=== PATIENT | male | born 1970 | race Two or more races ===

== ENCOUNTER 2021-03-25 12:34 | Inpatient (IN) | payer SELFPAY ==
[2021-03-25] MEDS ORDERED: Ketorolac 15 MG/ML SDV IVPUSH ONE (12:43)
[2021-03-25] MEDS ORDERED: Dexamethasone 10 MG/ML SDV IVPUSH ONE (12:43)
--- NOTE | 2021-03-25 13:24 | CR ---
Indication: Shortness of breath Technique: Chest 1 view Comparison: None Findings/Impression: Cardiomegaly. Patchy bilateral opacities throughout the lungs concerning for infection or edema. No pneumothorax or effusion. Osseous structures are intact. Dictated by Meena Lomax MD @ 03/25/2021 1:23:35 PM (Electronically Signed)
[2021-03-25 13:29] LABS: BLOOD UREA NITROGEN,BUN 15 mg/dL (7.0-18.0); CARBON DIOXIDE,CO2 24.3 mmol/L (21.0-32.0); CHLORIDE,CL 95 mmol/L (98-107); GLUCOSE RANDOM 128 mg/dL (74-106); POTASSIUM,K 3.9 mmol/L (3.5-5.1); SODIUM,NA 133 mmol/L (136-148)
[2021-03-25] MEDS ORDERED: REMDESIVIR 200 MG in Sodium Chloride 0.9% 250 ML IV ONE ×2 (15:53→16:30)
--- NOTE | 2021-03-25 17:31 | PCM.HP.2 ---
H&P History of Present Illness - General Date of Service: 03/25/21 Admit Problem/Dx: Admission Diagnosis/Problem Admission Diagnosis/Problem Hypoxia - History of Present Illness Initial Comments - Free Text/Narative: The patient is a 45-year-old male, on day 1 of service, who has a significant past medical history of obesity with a BMI of 41.8, who was admitted to the ICU because of acute respiratory failure secondary to COVID-19 pneumonia. The patient is currently on BiPAP but was able to give a thorough history of the events that have transpired, on 03/15 the patient developed fevers ranging from 100-102, and a dry cough which progressively has worsened into producing clear sputum. On 03/16 the patient started to develop slight shortness of breath but thought he only had a cold. On 03/18 the patient was tested positive for COVID-19. Over the following week after being tested positive, the patient's symptoms have progressively worsened to the point where he has to rest when moving in order to catch his breath. This morning the patient came to the emergency department because his breathing became unbearable. He denies any chest pain, palpitations, abdominal pain, diarrhea, loss of taste or smell, or issues with urination. On social history, the patient does not smoke or use recreational drugs but does admit to occasional alcohol use. Family history is noncontributory. Once in the emergency department the patient was placed on BiPAP, with a FiO2 of 85, and is currently saturating at 92%. He has an IPAP of 14, EPAP of 6, PIP of 16, tidal volume of 700. He was given remdesivir 200 mg per IV route once, dexamethasone 6 mg via IV route once, and Toradol 30 mg per IV route once. The patient also had a chest x-ray done which showed cardiomegaly, as well as patchy bilateral opacities throughout the lung kumar concerning for infection. On CBC, the patient had a white blood cell count of 13.69, hemoglobin 16.1, hematocrit of 46.2, platelets of 237, and INR of 1.25. On CMP the sodium level was 133, potassium 3.9, chloride 95, glucose of 128, calcium 7.3, AST of 105, AL T of 73, and CRP of 27.10. - Related Data Allergies/Adverse Reactions: Allergies Allergy/AdvReac Type Severity Reaction Status Date / Time No Known Allergies Allergy Verified 03/25/21 12:58 Home Medications: Home Meds . [No Known Home Meds] 03/25/21 [History] Past Medical History - Past Health History Medical/Surgical History: Denies Medical/Surgical History HEENT History: Reports: None Cardiovascular History: Reports: None Respiratory History: Reports: None Gastrointestinal History: Reports: None Genitourinary History: Reports: None Neurological History: Reports: None Psychiatric History: Reports: None Endocrine/Metabolic History: Reports: None Hematologic History: Reports: None Immunologic History: Reports: None Oncologic (Cancer) History: Reports: None Dermatologic History: Reports: None - Infectious Disease History Infectious Disease History: Reports: None - Past Surgical History Head Surgeries/Procedures: Reports: None Social & Family History - Family History Family Medical History: No Pertinent Family History - Tobacco Use Tobacco Use Status *Q: Never Tobacco User Second Hand Smoke Exposure: No - Caffeine Use Caffeine Use: Reports: None - Recreational Drug Use Recreational Drug Use: No H&P Review of Systems - Review of Systems: Review Of Systems: See Below General: Reports: Fever, Chills, Fatigue. Denies: Diaphoresis HEENT: Denies: Sore Throat Pulmonary: Reports: Shortness of Breath, Wheezing, Cough Cardiovascular: Reports: Dyspnea on Exertion. Denies: Chest Pain, Palpitations Gastrointestinal: Denies: Abdominal Pain, Constipation, Diarrhea Genitourinary: Denies: Dysuria, Frequency, Burning Neurological: Denies: Headache Exam - Exam Exam: See Below - Vital Signs Vital Signs: Last Vital Signs Temp 98.2 F 03/25/21 17:19 Pulse 77 03/25/21 17:19 Resp 20 03/25/21 17:19 BP 106/71 03/25/21 17:19 Pulse Ox 92 L 03/25/21 17:19 Weight: 300 lb - Exam General: Alert, Oriented, Cooperative HEENT: Conjunctiva Clear, Other (CPAP machine over face) Neck: Trachea Midline Lungs: Other (Difficult to assess respiratory effort due to CPAP placement,) Cardiovascular: Regular Rate, Regular Rhythm GI/Abdominal Exam: Normal Bowel Sounds, Soft, Non-Tender, Other (Obese body h abitus) - Patient Data Lab Results Last 24 hrs: Laboratory Results - last 24 hr 09/29/21 09/29/21 09/29/21 Range/Units 12:34 12:34 12:34 WBC 13.69 H (4.0-11.0) K/uL RBC 5.00 (4.50-5.90) M/uL Hgb 16.1 (13.0-17.0) g/dL Hct 46.2 (38.0-50.0) % MCV 92.4 (80.0-98.0) fL MCH 32.2 H (27.0-32.0) pg MCHC 34.8 (31.0-37.0) g/dL RDW Std Deviation 44.2 (28.0-62.0) fl RDW Coeff of Kavon 13 (11.0-15.0) % Plt Count 237 (150-400) K/uL MPV 9.90 (7.40-12.00) fL Neut % (Auto) 93.1 H (48.0-80.0) % Lymph % (Auto) 2.6 L (16.0-40.0) % [place] % (Auto) 4.2 (0.0-15.0) % Eos % (Auto) 0.0 (0.0-7.0) % Baso % (Auto) 0.1 (0.0-1.5) % Neut # (Auto) 12.8 H (1.4-5.7) K/uL Lymph # (Auto) 0.4 L (0.6-2.4) K/uL [place] # (Auto) 0.6 (0.0-0.8) K/uL Eos # (Auto) 0.0 (0.0-0.7) K/uL Baso # (Auto) 0.0 (0.0-0.1) K/uL Nucleated RBC % 0.3 /100WBC Nucleated RBCs # 0 K/uL INR 1.25 Sodium 133 L (136-148) mmol/L Potassium 3.9 (3.5-5.1) mmol/L Chloride 95 L (98-107) mmol/L Carbon Dioxide 24.3 (21.0-32.0) mmol/L BUN 15 (7.0-18.0) mg/dL Creatinine 1.3 (0.8-1.3) mg/dL Est Cr Clr Drug Dosing 74.01 mL/min Estimated GFR (MDRD) 58.9 ml/min Glucose 128 H (74-106) mg/dL Calcium 7.3 L (8.5-10.1) mg/dL Magnesium 2.3 (1.8-2.4) mg/dL Total Bilirubin 1.4 H (0.2-1.0) mg/dL AST 105 H (15-37) IU/L ALT 73 H (14-63) IU/L Alkaline Phosphatase 39 L (46-116) U/L Troponin I < 0.050 (0.000-0.056) ng/mL C-Reactive Protein 27.10 H (0.00-0.90) mg/dL Total Protein 6.8 (6.4-8.2) g/dL Albumin 2.9 L (3.4-5.0) g/dL Globulin 3.9 (2.6-4.0) g/dL Albumin/Globulin Ratio 0.7 L (0.9-1.6) SARS-CoV-2 RNA (JESSICA) (NEGATIVE) 03/25/21 Range/Units 13:08 WBC (4.0-11.0) K/uL RBC (4.50-5.90) M/uL Hgb (13.0-17.0) g/dL Hct (38.0-50.0) % MCV (80.0-98.0) fL MCH (27.0-32.0) pg MCHC (31.0-37.0) g/dL RDW Std Deviation (28.0-62.0) fl RDW Coeff of Kavon (11.0-15.0) % Plt Count (150-400) K/uL MPV (7.40-12.00) fL Neut % (Auto) (48.0-80.0) % Lymph % (Auto) (16.0-40.0) % [place] % (Auto) (0.0-15.0) % Eos % (Auto) (0.0-7.0) % Baso % (Auto) (0.0-1.5) % Neut # (Auto) (1.4-5.7) K/uL Lymph # (Auto) (0.6-2.4) K/uL [place] # (Auto) (0.0-0.8) K/uL Eos # (Auto) (0.0-0.7) K/uL Baso # (Auto) (0.0-0.1) K/uL Nucleated RBC % /100WBC Nucleated RBCs # K/uL INR Sodium (136-148) mmol/L Potassium (3.5-5.1) mmol/L Chloride (98-107) mmol/L Carbon Dioxide (21.0-32.0) mmol/L BUN (7.0-18.0) mg/dL Creatinine (0.8-1.3) mg/dL Est Cr Clr Drug Dosing mL/min Estimated GFR (MDRD) ml/min Glucose (74-106) mg/dL Calcium (8.5-10.1) mg/dL Magnesium (1.8-2.4) mg/dL Total Bilirubin (0.2-1.0) mg/dL AST (15-37) IU/L ALT (14-63) IU/L Alkaline Phosphatase (46-116) U/L Troponin I (0.000-0.056) ng/mL C-Reactive Protein (0.00-0.90) mg/dL Total Protein (6.4-8.2) g/dL Albumin (3.4-5.0) g/dL Globulin (2.6-4.0) g/dL Albumin/Globulin Ratio (0.9-1.6) SARS-CoV-2 RNA (JESSICA) POSITIVE H (NEGATIVE) Result Diagrams: 03/25/21 12:34 03/25/21 12:34 Sepsis Event Note - Evaluation Sepsis Screening Result: No Definite Risk - Focused Exam Vital Signs: Vital Signs Temp Pulse Resp BP Pulse Ox 03/25/21 17:19 98.2 F 77 20 106/71 92 L 03/25/21 16:21 84 18 94 L 03/25/21 16:00 77 20 131/73 93 L 03/25/21 15:30 98.2 F 80 18 120/71 93 L 03/25/21 15:00 88 20 128/73 94 L 03/25/21 14:30 78 20 135/74 91 L 03/25/21 14:00 98.8 F 82 20 122/74 92 L 03/25/21 13:34 101 H 26 H 120/67 92 L 03/25/21 12:46 101.6 F H 101 H 40 H 124/79 50 L - Problem List (1) COVID-19 SNOMED Code(s): 325652847 ICD Code: U07.1 - COVID-19 Status: Acute Current Visit: Yes (2) Obesity SNOMED Code(s): 989778629, 935681663 ICD Code: E66.9 - OBESITY, UNSPECIFIED Status: Acute Current Visit: Yes Problem List Initiated/Reviewed/Updated: Yes Orders Last 24hrs: Active Orders 24 hr Category Date Time Status Admission Status [Patient Status] [ADT] Stat ADT 03/25/21 15:54 Active Cardiac Monitoring [RC] . DIRECTED Care 03/25/21 12:40 Active Pulse Oximetry [RC] ASDIRECTED Care 03/25/21 12:40 Active RT BiPAP/CPAP [RC] ASDIRECTED Care 03/25/21 14:16 Active BILIRUBIN DIRECT [CHEM] DAILY Lab 03/26/21 16:00 Ordered BILIRUBIN DIRECT [CHEM] DAILY Lab 03/27/21 16:00 Ordered BILIRUBIN DIRECT [CHEM] DAILY Lab 03/28/21 16:00 Ordered BILIRUBIN DIRECT [CHEM] DAILY Lab 03/29/21 16:00 Ordered CBC WITH AUTO DIFF [HEME] AM Lab 03/26/21 05:11 Ordered CBC WITH AUTO DIFF [HEME] AM Lab 03/27/21 05:11 Ordered CBC WITH AUTO DIFF [HEME] AM Lab 03/28/21 05:11 Ordered COMPREHENSIVE METABOLIC PN,CMP [CHEM] DAILY Lab 03/26/21 16:00 Ordered COMPREHENSIVE METABOLIC PN,CMP [CHEM] DAILY Lab 03/27/21 16:00 Ordered COMPREHENSIVE METABOLIC PN,CMP [CHEM] DAILY Lab 03/28/21 16:00 Ordered COMPREHENSIVE METABOLIC PN,CMP [CHEM] DAILY Lab 03/29/21 16:00 Ordered Dextromethorphan/guaiFENesin [Robitussin DM] Med 03/25/21 17:28 Ordered 10 ml PO Q4H PRN Enoxaparin [Lovenox] Med 03/25/21 21:00 Ordered 40 mg SUBCUT Q12HR Pantoprazole [ProTONIX IV] 40 mg Med 03/25/21 17:30 Ordered Sodium Chloride 0.9% [Normal Saline] 10 ml IV Q24H Remdesivir 100 mg Med 03/26/21 17:30 Ordered Sodium Chloride 0.9% [Normal Saline] 100 ml IV Q24H Medication Orders Enoxaparin Sodium (Enoxaparin 40 Mg/0.4 Ml Syringe) 40 mg SUBCUT Q12HR MARCO A Guaifenesin/Dextromethorphan (Guaifenesin/Dextromethorphan 100-10 Mg/5 Ml Soln 10 Ml Cup) 10 ml PO Q4H PRN PRN Reason: Cough Pantoprazole Sodium 40 mg/ (Sodium Chloride) 10 mls @ 300 mls/hr IV Q24H MARCO A Remdesivir 100 mg/ Sodium (Chloride) 100 mls @ 100 mls/hr IV Q24H MARCO A Stop: 03/29/21 18:29 Assessment/Plan Comment:: Admit the patient to the medical floor, vitals per unit routine, activity up ad troy., GI prophylaxis with pantoprazole 40 mg per IV route once a day, DVT prophylaxis with Lovenox 40 mg via subcutaneous route every 12 hours, regular diet 1. Cute respiratory failure secondary to COVID-19 pneumonia -The patient is currently on BiPAP saturating at 92% with a FiO2 of 85, IPAP of 14, EPAP of 6, PIP of 16, tidal volume of 700. We will continue this patient on BiPAP until improvements are noted. -The patient received 1 remdesivir treatment of 200 mg via IV route in the emergency room once, we have started the patient on remdesivir 100 mg IV route, 4 doses to be given. -The patient received 1 dose of dexamethasone 6 mg via IV route in the emergency department, we will continue the patient on dexamethasone 6 mg p.o. once a day. -For cough the patient has been put on Robitussin DM every 4 hours as needed. -For shortness of breath the patient has been placed on duo nebs every 4 hours scheduled. -Baricitinib treatment has been discussed with the patient and paperwork provided. The patient would like to read the information provided before consenting to treatment. -The CT angiogram of the chest has been ordered to rule out possible pulmonary embolism. -Daily CBC/CMP. 2. Obesity with a BMI over 40 -Hemoglobin A1c has been ordered and results will be discussed with the patient upon return -After the patient is stabilized he will be counseled on weight loss tips.
[2021-03-25] MEDS ORDERED: Albuterol/Ipratropium 4 GM Inhalation Spray INH PRN (18:00)
[2021-03-25] MEDS: Pantoprazole 40 MG in Sodium Chloride 0.9% 10 ML IV SCH (18:34)
[2021-03-25] MEDS: Albuterol/Ipratropium 3.0-0.5 MG/3 ML Neb Soln NEB SCH ×2 (19:20→21:37)
[2021-03-25 19:26] LABS: HEMOGLOBIN A1C 5.6 %
--- NOTE | 2021-03-25 20:30 | EDM.PDOC ---
ED HPI GENERAL MEDICAL PROBLEM - General Chief Complaint: Respiratory Problem Stated Complaint: COVID Time Seen by Provider: 03/25/21 12:37 - History of Present Illness INITIAL COMMENTS - FREE TEXT/NARRATIVE: CHIEF COMPLAINT(S): Shortness of breath HISTORY OF PRESENT ILLNESS: This is a 50-year-old man with a past medical history of morbid obesity who presents to the emergency department as a medical resuscitation via EMS with a chief complaint of shortness of breath. Per EMS: Upon arrival the patient was saturating 40% he was placed on 15 L nonrebreather and his current oxygenation is in the mid 70s. The patient states that approximately 10 days ago he started to experience fevers, dry cough and on March 18, 2021 he was diagnosed with COVID-19. He states that he called EMS today after speaking with his daughter and other family members because he was feeling worsening shortness of breath. He denies any chest pain, diaphoresis, nausea or vomiting. He denies any loss of taste or smell. He denies any other symptoms other than the shortness of breath. He denies any recent travel, recent surgery, prior history of DVT or PE. REVIEW OF SYSTEMS: Constitutional: Denies fever, chills. Eyes: Denies eye pain Ears, Nose, Mouth, & Throat: Denies earache Cardiovascular: Denies chest pain Respiratory: Positive for shortness of breath Gastrointestinal: Denies Nausea, vomiting, diarrhea, hematochezia. Genitourinary: Denies hematuria Skin:Denies a rash Neurological: Denies blurred vision Psychiatric: Denies depression PAST MEDICAL HISTORY: As per history of present illness and as reviewed below otherwise noncontributory. SURGICAL HISTORY: As per history of present illness and as reviewed below otherwise noncontributory. SOCIAL HISTORY: As per history of present illness and as reviewed below otherwise noncontributory. FAMILY HISTORY: As per history of present illness and as reviewed below otherwise noncontributory. EXAMINATION OF ORGAN SYSTEMS/BODY AREAS: VITALS: Blood pressure is 124/79, heart rate 101, respiratory rate 40 with an oxygen saturation of 50% on room air. Temperature 38.7 GENERAL: Is a morbidly obese gentleman who appears to be in a severe amount of respiratory distress speaking in 1-2 word sentences. HEAD: Normocephalic, atraumatic. EYES: EOMs intact. PERRL. ENT. External ears WNL. Nares patent. Oropharynx is clear with no erythema or exudate. No uvular or tongue swelling. NECK: Supple, no masses. Trachea is midline. LUNGS: The patient is tachypneic and belly breathing with clear lung sounds bilaterally. No stridor. No drooling. Speaking in 1-2 word sentences.. CARDIOVASCULAR: Tachycardic but regular with no murmurs, rubs, gallops. No edema. No JVD. ABDOMEN: Soft, non-distended, non-tender. Bowel sounds present in all 4 quadrants. No rebound tenderness, guarding, or peritoneal signs. MUSCULOSKELETAL: No deformity. Patient is moving all 4 limbs spontaneously. NEUROLOGICAL: Alert and oriented x 3. No focal neurological deficits noted. SKIN: No rashes, or pallor. No signs of injury. MEDICAL DECISION MAKING AND COURSE IN THE ED WITH INTERPRETATION/REVIEW OF DIAGNOSTIC STUDIES: This is a 50-year-old man with a past medical history of morbid obesity who presents to the emergency department as a medical resuscitation via EMS with a chief complaint of shortness of breath. Immediately upon entering the resuscitation room the patient was disrobed, placed on continuous cardiac monitoring, and IV access was established by nursing. Patient is able to speak thus displaying a patent airway, breath sounds are equal bilaterally, and patient has palpable pulses in all 4 extremities. The patient is severely dyspneic and is profoundly hypoxic on room air. Therefore respiratory therapy was at bedside and we placed the patient on high flow nasal cannula with a flow rate of 40 L and a FiO2 of 90 to 100%. The patient continued to be profoundly dyspneic and his oxygen saturation only improved to 85%. Therefore we transitioned the patient to BiPAP with an FiO2 of 100%. His pulse oximetry did improve to 90 to 94%. At this time we will obtain an EKG which was unremarkable. We did obtain CBC, CMP, Covid, INR, chest x-ray. We did place the patient on cardiac monitoring and pulse oximetry. Cardiac monitoring at this time did reveal sinus tachycardia. We will provide the patient with Toradol for pain and fever relief and will also provide the patient with 6 mg of IV Decadron. At this time I do suspect Covid pneumonia therefore no fluids will be administered and antibiotics will be held. I do not believe blood cultures at this time are indicated. Laboratory: CBC reveals a leukocytosis of 13.69 with neutrophilic predominance. INR is normal. CMP reveals hyponatremia at 133, hypochloremia at 95, hyperglycemia at 128, hypocalcemia at 7.3, hyperbilirubinemia with a total bilirubin of 1.4, transaminitis with an AST of 105, ALT of 73, hypoalbuminemia at 2.9. Troponin is negative. Covid is positive. The radiological images were viewed by myself along with reading the report from the radiologist. Chest x-ray reveals bilateral opacities throughout the lungs concerning for infection or edema. On reevaluation the patient's heart rate improved and the patient's pulse oximetry continue to remain stable. At this time I do not believe blood cultures are indicated as the patient has a viral pneumonia. All of his vital s ign abnormalities can be described by COVID-19 pneumonia. At this time I did discuss admission with the patient. He was amenable to this plan. I contacted Dr. Sosa who accepted the patient for admission DISPOSITION: Admission CONDITION: Serious PROCEDURES: Cardiac monitoring, pulse oximetry interpretation FINAL IMPRESSION(S)/DIAGNOSES: 1. Acute hypoxic respiratory failure secondary to COVID-19 pneumonia Critical Care Procedure Note Authorized and performed by: Ludin Monsalve M.D. Critical Care Time: 45 minutes Due to a high probability of clinically significant, life threatening deterioration, the patient required my highest level of preparedness to intervene emergently and I personally spent this critical care time directly and personally managing the patient. This critical care time included obtaining a history, examining the patient, pulse oximetry; ordering and review of studies; arranging urgent treatment with development of a management plan; evaluation of a patients reponse to treatment; frequent assessment; and discussions with other providers. This critical care time was performed to assess and manage the high probability of imminent, life threatening deterioration that could result in multiorgan failure. It was exclusive of separate billable procedures and treating other patients. Please see MDM section and rest of the note for further information on patient assessment and treatment. Please see MDM section and rest of the note for further information on patient assessment and treatment. - Related Data Allergies Allergy/AdvReac Type Severity Reaction Status Date / Time No Known Allergies Allergy Verified 03/25/21 12:58 Home Meds: Home Meds . [No Known Home Meds] 03/25/21 [History] Past Medical History - Past Health History Medical/Surgical History: Denies Medical/Surgical History HEENT History: Reports: None Cardiovascular History: Reports: None Respiratory History: Reports: None Gastrointestinal History: Reports: None Genitourinary History: Reports: None Musculoskeletal History: Reports: Other (See Below) Other Musculoskeletal History: R heel injury with surgical intervention Neurological History: Reports: None Psychiatric History: Reports: None Endocrine/Metabolic History: Reports: None Hematologic History: Reports: None Immunologic History: Reports: None Oncologic (Cancer) History: Reports: None Dermatologic History: Reports: None - Infectious Disease History Infectious Disease History: Reports: None - Past Surgical History Head Surgeries/Procedures: Reports: None Social & Family History - Family History Family Medical History: No Pertinent Family History HEENT: Reports: None Cardiac: Reports: None - Tobacco Use Tobacco Use Status *Q: Never Tobacco User Second Hand Smoke Exposure: No - Caffeine Use Caffeine Use: Reports: None - Recreational Drug Use Recreational Drug Use: No ED ROS GENERAL - Review of Systems Review Of Systems: See Below ED EXAM, GENERAL - Physical Exam Exam: See Below GI/Abdominal: Normal Bowel Sounds, Soft, Non-Tender, Other (Obese body habitus) Course - Vital Signs Last Recorded V/S: Last Vital Signs Temp 37.2 C 03/25/21 19:12 Pulse 79 03/25/21 19:12 Resp 34 H 03/25/21 19:12 BP 125/82 03/25/21 19:12 Pulse Ox 96 03/25/21 19:12 - Orders/Labs/Meds Orders: Active Orders 24 hr Category Date Time Status Cardiac Monitoring [RC] Q8H Care 03/25/21 12:40 Active Pulse Oximetry [RC] ASDIRECTED Care 03/25/21 12:40 Active RT BiPAP/CPAP [RC] ASDIRECTED Care 03/25/21 14:16 Active BILIRUBIN DIRECT [CHEM] DAILY Lab 03/26/21 16:00 Ordered BILIRUBIN DIRECT [CHEM] DAILY Lab 03/27/21 16:00 Ordered BILIRUBIN DIRECT [CHEM] DAILY Lab 03/28/21 16:00 Ordered BILIRUBIN DIRECT [CHEM] DAILY Lab 03/29/21 16:00 Ordered COMPREHENSIVE METABOLIC PN,CMP [CHEM] DAILY Lab 03/26/21 16:00 Ordered COMPREHENSIVE METABOLIC PN,CMP [CHEM] DAILY Lab 03/27/21 16:00 Ordered COMPREHENSIVE METABOLIC PN,CMP [CHEM] DAILY Lab 03/28/21 16:00 Ordered COMPREHENSIVE METABOLIC PN,CMP [CHEM] DAILY Lab 03/29/21 16:00 Ordered Medication Orders Albuterol/Ipratropium (Albuterol/Ipratropium 3.0-0.5 Mg/3 Ml Neb Soln) 3 ml NEB Q4HRRT [facility] Last Admin: 03/25/21 19:20 Dose: 3 ml Documented by: HUBSLAR Enoxaparin Sodium (Enoxaparin 40 Mg/0.4 Ml Syringe) 40 mg SUBCUT Q12HR [facility] Guaifenesin/Dextromethorphan (Guaifenesin/Dextromethorphan 100-10 Mg/5 Ml Soln 10 Ml Cup) 10 ml PO Q4H PRN PRN Reason: Cough Pantoprazole Sodium 40 mg/ (Sodium Chloride) 10 mls @ 300 mls/hr IV Q24H [facility] Last Admin: 03/25/21 18:34 Dose: 300 mls/hr Documented by: HUBSLAR Remdesivir 100 mg/ Sodium (Chloride) 100 mls @ 100 mls/hr IV Q24H [facility] Stop: 03/29/21 18:29 Labs: Laboratory Tests 03/25/21 03/25/21 03/25/21 Range/Units 12:34 12:34 12:34 WBC 13.69 H (4.0-11.0) K/uL RBC 5.00 (4.50-5.90) M/uL Hgb 16.1 (13.0-17.0) g/dL Hct 46.2 (38.0-50.0) % MCV 92.4 (80.0-98.0) fL MCH 32.2 H (27.0-32.0) pg MCHC 34.8 (31.0-37.0) g/dL RDW Std Deviation 44.2 (28.0-62.0) fl RDW Coeff of Kavon 13 (11.0-15.0) % Plt Count 237 (150-400) K/uL MPV 9.90 (7.40-12.00) fL Neut % (Auto) 93.1 H (48.0-80.0) % Lymph % (Auto) 2.6 L (16.0-40.0) % [place] % (Auto) 4.2 (0.0-15.0) % Eos % (Auto) 0.0 (0.0-7.0) % Baso % (Auto) 0.1 (0.0-1.5) % Neut # (Auto) 12.8 H (1.4-5.7) K/uL Lymph # (Auto) 0.4 L (0.6-2.4) K/uL [place] # (Auto) 0.6 (0.0-0.8) K/uL Eos # (Auto) 0.0 (0.0-0.7) K/uL Baso # (Auto) 0.0 (0.0-0.1) K/uL Nucleated RBC % 0.3 /100WBC Nucleated RBCs # 0 K/uL INR 1.25 Sodium 133 L (136-148) mmol/L Potassium 3.9 (3.5-5.1) mmol/L Chloride 95 L (98-107) mmol/L Carbon Dioxide 24.3 (21.0-32.0) mmol/L BUN 15 (7.0-18.0) mg/dL Creatinine 1.3 (0.8-1.3) mg/dL Est Cr Clr Drug Dosing 74.01 mL/min Estimated GFR (MDRD) 58.9 ml/min Glucose 128 H (74-106) mg/dL Hemoglobin A1c (4.5 - 6.2) % Calcium 7.3 L (8.5-10.1) mg/dL Magnesium 2.3 (1.8-2.4) mg/dL Total Bilirubin 1.4 H (0.2-1.0) mg/dL AST 105 H (15-37) IU/L ALT 73 H (14-63) IU/L Alkaline Phosphatase 39 L (46-116) U/L Troponin I < 0.050 (0.000-0.056) ng/mL C-Reactive Protein 27.10 H (0.00-0.90) mg/dL Total Protein 6.8 (6.4-8.2) g/dL Albumin 2.9 L (3.4-5.0) g/dL Globulin 3.9 (2.6-4.0) g/dL Albumin/Globulin Ratio 0.7 L (0.9-1.6) SARS-CoV-2 RNA (JESSICA) (NEGATIVE) 03/25/21 03/25/21 Range/Units 12:39 13:08 WBC (4.0-11.0) K/uL RBC (4.50-5.90) M/uL Hgb (13.0-17.0) g/dL Hct (38.0-50.0) % MCV (80.0-98.0) fL MCH (27.0-32.0) pg MCHC (31.0-37.0) g/dL RDW Std Deviation (28.0-62.0) fl RDW Coeff of Kavon (11.0-15.0) % Plt Count (150-400) K/uL MPV (7.40-12.00) fL Neut % (Auto) (48.0-80.0) % Lymph % (Auto) (16.0-40.0) % [place] % (Auto) (0.0-15.0) % Eos % (Auto) (0.0-7.0) % Baso % (Auto) (0.0-1.5) % Neut # (Auto) (1.4-5.7) K/uL Lymph # (Auto) (0.6-2.4) K/uL [place] # (Auto) (0.0-0.8) K/uL Eos # (Auto) (0.0-0.7) K/uL Baso # (Auto) (0.0-0.1) K/uL Nucleated RBC % /100WBC Nucleated RBCs # K/uL INR Sodium (136-148) mmol/L Potassium (3.5-5.1) mmol/L Chloride (98-107) mmol/L Carbon Dioxide (21.0-32.0) mmol/L BUN (7.0-18.0) mg/dL Creatinine (0.8-1.3) mg/dL Est Cr Clr Drug Dosing mL/min Estimated GFR (MDRD) ml/min Glucose (74-106) mg/dL Hemoglobin A1c 5.6 (4.5 - 6.2) % Calcium (8.5-10.1) mg/dL Magnesium (1.8-2.4) mg/dL Total Bilirubin (0.2-1.0) mg/dL AST (15-37) IU/L ALT (14-63) IU/L Alkaline Phosphatase (46-116) U/L Troponin I (0.000-0.056) ng/mL C-Reactive Protein (0.00-0.90) mg/dL Total Protein (6.4-8.2) g/dL Albumin (3.4-5.0) g/dL Globulin (2.6-4.0) g/dL Albumin/Globulin Ratio (0.9-1.6) SARS-CoV-2 RNA (JESSICA) POSITIVE H (NEGATIVE) Meds: Medications Generic Name Dose Route Start Last Admin Trade Name Freq PRN Reason Stop Dose Admin Albuterol/Ipratropium 3 ml 03/25/21 18:00 03/25/21 19:20 Albuterol/Ipratropium 3.0-0.5 Mg/3 Ml Neb Soln NEB 3 ml Q4HRRT [facility] Administration Enoxaparin Sodium 40 mg 03/25/21 21:00 Enoxaparin 40 Mg/0.4 Ml Syringe SUBCUT Q12HR [facility] Guaifenesin/Dextromethorphan 10 ml 03/25/21 17:28 Guaifenesin/Dextromethorphan 100-10 Mg/5 Ml Soln 10 Ml Cup PO Q4H PRN Cough Pantoprazole Sodium 40 mg/ 10 mls @ 300 mls/hr 03/25/21 17:30 03/25/21 18:34 Sodium Chloride IV 300 mls/hr Q24H [facility] A Administration Remdesivir 100 mg/ Sodium 100 mls @ 100 mls/hr 03/26/21 17:30 Chloride IV 03/29/21 18:29 Q24H MARCO A Discontinued Medications Generic Name Dose Route Start Last Admin Trade Name Freq PRN Reason Stop Dose Admin Albuterol/Ipratropium 1 gm 03/25/21 18:00 Albuterol/Ipratropium 4 Gm Inhalation [place] INH Q4HRRT PRN Dyspnea Dexamethasone 6 mg 03/25/21 12:43 03/25/21 13:06 Dexamethasone 10 Mg/Ml Sdv IVPUSH 03/25/21 12:44 6 mg ONETIME ONE Administration Remdesivir 200 mg/ Sodium 250 mls @ 250 mls/hr 03/25/21 16:30 03/25/21 17:19 Chloride IV 03/25/21 17:29 250 mls/hr ONETIME ONE Administration Ketorolac Tromethamine 15 mg 03/25/21 12:43 03/25/21 13:06 Ketorolac 15 Mg/Ml Sdv IVPUSH 03/25/21 12:44 15 mg ONETIME ONE Administration Departure - Departure Time of Disposition: 15:54 Disposition: Admitted As Inpatient 68 Condition: Serious Clinical Impression: COVID-19 - Discharge Information Sepsis Event Note (ED) - Evaluation Sepsis Screening Result: Possible Sepsis Risk - Focused Exam Vital Signs: Vital Signs Temp Pulse Resp BP Pulse Ox 03/25/21 15:30 36.8 C 80 18 120/71 93 L 03/25/21 15:00 88 20 128/73 94 L 03/25/21 14:30 78 20 135/74 91 L 03/25/21 14:00 37.1 C 82 20 122/74 92 L 03/25/21 13:34 101 H 26 H 120/67 92 L 03/25/21 12:46 38.7 C H 101 H 40 H 124/79 50 L - My Orders Last 24 Hours: My Active Orders 03/25/21 12:40 Cardiac Monitoring [RC] Q8H Pulse Oximetry [RC] ASDIRECTED 03/25/21 14:16 RT BiPAP/CPAP [RC] ASDIRECTED 03/26/21 16:00 BILIRUBIN DIRECT [CHEM] DAILY COMPREHENSIVE METABOLIC PN,CMP [CHEM] DAILY 03/27/21 16:00 BILIRUBIN DIRECT [CHEM] DAILY COMPREHENSIVE METABOLIC PN,CMP [CHEM] DAILY 03/28/21 16:00 BILIRUBIN DIRECT [CHEM] DAILY COMPREHENSIVE METABOLIC PN,CMP [CHEM] DAILY 03/29/21 16:00 BILIRUBIN DIRECT [CHEM] DAILY COMPREHENSIVE METABOLIC PN,CMP [CHEM] DAILY - Assessment/Plan Last 24 Hours: My Active Orders 03/25/21 12:40 Cardiac Monitoring [RC] Q8H Pulse Oximetry [RC] ASDIRECTED 03/25/21 14:16 RT BiPAP/CPAP [RC] ASDIRECTED 03/26/21 16:00 BILIRUBIN DIRECT [CHEM] DAILY COMPREHENSIVE METABOLIC PN,CMP [CHEM] DAILY 03/27/21 16:00 BILIRUBIN DIRECT [CHEM] DAILY COMPREHENSIVE METABOLIC PN,CMP [CHEM] DAILY 03/28/21 16:00 BILIRUBIN DIRECT [CHEM] DAILY COMPREHENSIVE METABOLIC PN,CMP [CHEM] DAILY 03/29/21 16:00 BILIRUBIN DIRECT [CHEM] DAILY COMPREHENSIVE METABOLIC PN,CMP [CHEM] DAILY
--- NOTE | 2021-03-25 21:08 | PCM.EKG ---
#1 Interpretation EKG Date: 03/25/21 Time: 13:22 Rhythm: NSR Rate (Beats/Min): 104 [place]: Normal P-Wave: Present QRS: Normal ST-T: Normal QT: Normal Comparison: NA - No Prior EKG EKG Interpretation Comments: Sinus tachycardia
[2021-03-25] MEDS: Enoxaparin 40 MG/0.4 ML Syringe SUBCUT SCH (21:37)
[2021-03-26] MEDS ORDERED: Iopamidol 755 MG/ML 500 ML Multipack Bottle IVPUSH STA (01:45)
[2021-03-26] MEDS: Albuterol/Ipratropium 3.0-0.5 MG/3 ML Neb Soln NEB SCH ×6 (02:06→22:19)
--- NOTE | 2021-03-26 02:29 | CT ---
INDICATION: SOB. COVID positive. Rule out pulmonary embolism. TECHNIQUE: Volumetric helical scanning of the thorax was performed during infusion of 100 cc of Isovue 370 contrast material IV, timing optimized for pulmonary arterial opacification. Coronal and sagittal reconstructions were obtained. COMPARISON: Chest x-ray performed yesterday. FINDINGS: The images are of acceptable quality and demonstrate uniform vascular enhancement within the pulmonary arteries. No pulmonary arterial filling defect is identified. The heart size is normal. Patchy ground-glass infiltrates are present throughout both lungs. The airways and pleural spaces are clear. There is no mediastinal or hilar lymphadenopathy. Images of the upper abdomen are unremarkable. IMPRESSION: 1. Negative for pulmonary embolism. 2. Patchy ground-glass infiltrates throughout both lungs, consistent with COVID 19 pneumonia. Please note that all CT scans at this facility use dose modulation, iterative reconstruction, and/or weight-based dosing when appropriate to reduce radiation dose to as low as reasonably achievable. Dictated by Vladimir Rodriguez MD @ 03/26/2021 2:28:38 AM (Electronically Signed)
[2021-03-26 07:47] LABS: BLOOD UREA NITROGEN,BUN 17 mg/dL (7.0-18.0); CARBON DIOXIDE,CO2 30.7 mmol/L (21.0-32.0); CHLORIDE,CL 100 mmol/L (98-107); GLUCOSE RANDOM 96 mg/dL (74-106); SODIUM,NA 140 mmol/L (136-148)
[2021-03-26] MEDS: Enoxaparin 40 MG/0.4 ML Syringe SUBCUT SCH ×2 (09:00→20:57)
[2021-03-26] MEDS ORDERED: Dexamethasone 4 MG Tab PO SCH (13:00)
--- NOTE | 2021-03-26 13:10 | PCM.PN ---
<Rosa Jay - Last Filed: 03/26/21 13:03> - General Info Date of Service: 03/26/21 Subjective Update: The patient is a 50-year-old male who was admitted to the medical floor due to acute respiratory failure secondary to COVID-19 pneumonia. He has no known significant past medical history but is obese with a BMI of over 40. He is currently on BiPAP with IPAP of 14 and a EPAP of 8, FiO2 of 90, tidal volume in the 800s, and O2 saturation of 88-91. The patient had time to read through ma terials provided to him with respect to baricitinib treatment and has accepted initiation of the oral medication. He revealed today that he has received the [facility] COVID-19 pneumonia vaccinations. On interview today, the patient admits he is concerned about the mortality of COVID-19 pneumonia. He does admit that he can breathe better today than yesterday. He admits that he slept well but is suffering from a little cough and dryness in the back of his throat secondary to BiPAP placement. He denies any chest pains, palpitations, abdominal pain, headache, dizziness, or issues with urination and/or defecation. The patient has no other concerns at this time. - Review of Systems General: Denies: Fever, Weakness, Fatigue, Chills HEENT: Denies: Headaches Pulmonary: Reports: Shortness of Breath, Cough Cardiovascular: Denies: Chest Pain, Palpitations Gastrointestinal: Denies: Abdominal Pain, Constipation, Diarrhea Genitourinary: Denies: Dysuria - Patient Data Vitals - Most Recent: Last Vital Signs Temp 97.7 F 03/26/21 12:00 Pulse 79 03/25/21 19:12 Resp 30 H 03/26/21 12:00 BP 119/70 03/26/21 12:00 Pulse Ox 90 L 03/26/21 12:00 Weight - Most Recent: 154.811 kg Lab Results Last 24 Hours: Laboratory Results - last 24 hr 03/25/21 03/25/21 03/25/21 Range/Units 12:34 12:39 13:08 WBC (4.0-11.0) K/uL RBC (4.50-5.90) M/uL Hgb (13.0-17.0) g/dL Hct (38.0-50.0) % MCV (80.0-98.0) fL MCH (27.0-32.0) pg MCHC (31.0-37.0) g/dL RDW Std Deviation (28.0-62.0) fl RDW Coeff of Kavon (11.0-15.0) % Plt Count (150-400) K/uL MPV (7.40-12.00) fL Neut % (Auto) (48.0-80.0) % Lymph % (Auto) (16.0-40.0) % Foard % (Auto) (0.0-15.0) % Eos % (Auto) (0.0-7.0) % Baso % (Auto) (0.0-1.5) % Neut # (Auto) (1.4-5.7) K/uL Lymph # (Auto) (0.6-2.4) K/uL Foard # (Auto) (0.0-0.8) K/uL Eos # (Auto) (0.0-0.7) K/uL Baso # (Auto) (0.0-0.1) K/uL Nucleated RBC % /100WBC Nucleated RBCs # K/uL D-Dimer, Quantitative (0.0-0.50) mg/L FEU ABG pH (7.35-7.45) ABG pCO2 (35-45) mmHG ABG pO2 (80-105) mmHG ABG HCO3 (22-26) mEq/L ABG Total CO2 (23-27) mmol/L ABG Base Excess (-2.0-3.0) Sodium 133 L (136-148) mmol/L Potassium 3.9 (3.5-5.1) mmol/L Chloride 95 L (98-107) mmol/L Carbon Dioxide 24.3 (21.0-32.0) mmol/L BUN 15 (7.0-18.0) mg/dL Creatinine 1.3 (0.8-1.3) mg/dL Est Cr Clr Drug Dosing 74.01 mL/min Estimated GFR (MDRD) 58.9 ml/min Glucose 128 H (74-106) mg/dL Hemoglobin A1c 5.6 (4.5 - 6.2) % Calcium 7.3 L (8.5-10.1) mg/dL Phosphorus (2.6-4.7) mg/dL Magnesium 2.3 (1.8-2.4) mg/dL Total Bilirubin 1.4 H (0.2-1.0) mg/dL AST 105 H (15-37) IU/L ALT 73 H (14-63) IU/L Alkaline Phosphatase 39 L (46-116) U/L Troponin I < 0.050 (0.000-0.056) ng/mL C-Reactive Protein 27.10 H (0.00-0.90) mg/dL Total Protein 6.8 (6.4-8.2) g/dL Albumin 2.9 L (3.4-5.0) g/dL Globulin 3.9 (2.6-4.0) g/dL Albumin/Globulin Ratio 0.7 L (0.9-1.6) SARS-CoV-2 RNA (JESSICA) POSITIVE H (NEGATIVE) 03/25/21 03/26/21 03/26/21 Range/Units 22:21 06:00 06:00 WBC 13.83 H (4.0-11.0) K/uL RBC 4.97 (4.50-5.90) M/uL Hgb 15.9 (13.0-17.0) g/dL Hct 46.1 (38.0-50.0) % MCV 92.8 (80.0-98.0) fL MCH 32.0 (27.0-32.0) pg MCHC 34.5 (31.0-37.0) g/dL RDW Std Deviation 44.4 (28.0-62.0) fl RDW Coeff of Kavon 13 (11.0-15.0) % Plt Count 229 (150-400) K/uL MPV 10.10 (7.40-12.00) fL Neut % (Auto) 92.9 H (48.0-80.0) % Lymph % (Auto) 3.3 L (16.0-40.0) % Foard % (Auto) 3.7 (0.0-15.0) % Eos % (Auto) 0.0 (0.0-7.0) % Baso % (Auto) 0.1 (0.0-1.5) % Neut # (Auto) 12.9 H (1.4-5.7) K/uL Lymph # (Auto) 0.5 L (0.6-2.4) K/uL Foard # (Auto) 0.5 (0.0-0.8) K/uL Eos # (Auto) 0.0 (0.0-0.7) K/uL Baso # (Auto) 0.0 (0.0-0.1) K/uL Nucleated RBC % 0.0 /100WBC Nucleated RBCs # 0 K/uL D-Dimer, Quantitative 1.22 H (0.0-0.50) mg/L FEU ABG pH (7.35-7.45) ABG pCO2 (35-45) mmHG ABG pO2 (80-105) mmHG ABG HCO3 (22-26) mEq/L ABG Total CO2 (23-27) mmol/L ABG Base Excess (-2.0-3.0) Sodium 140 (136-148) mmol/L Potassium 4.0 (3.5-5.1) mmol/L Chloride 100 (98-107) mmol/L Carbon Dioxide 30.7 (21.0-32.0) mmol/L BUN 17 (7.0-18.0) mg/dL Creatinine 0.9 (0.8-1.3) mg/dL Est Cr Clr Drug Dosing 106.91 mL/min Estimated GFR (MDRD) > 60.0 ml/min Glucose 96 (74-106) mg/dL Hemoglobin A1c (4.5 - 6.2) % Calcium 7.2 L (8.5-10.1) mg/dL Phosphorus (2.6-4.7) mg/dL Magnesium (1.8-2.4) mg/dL Total Bilirubin 1.0 (0.2-1.0) mg/dL AST 81 H (15-37) IU/L ALT 62 (14-63) IU/L Alkaline Phosphatase 41 L (46-116) U/L Troponin I (0.000-0.056) ng/mL C-Reactive Protein (0.00-0.90) mg/dL Total Protein 6.3 L (6.4-8.2) g/dL Albumin 2.5 L (3.4-5.0) g/dL Globulin 3.8 (2.6-4.0) g/dL Albumin/Globulin Ratio 0.7 L (0.9-1.6) SARS-CoV-2 RNA (JESSICA) (NEGATIVE) 03/26/21 03/26/21 Range/Units 06:00 10:05 WBC (4.0-11.0) K/uL RBC (4.50-5.90) M/uL Hgb (13.0-17.0) g/dL Hct (38.0-50.0) % MCV (80.0-98.0) fL MCH (27.0-32.0) pg MCHC (31.0-37.0) g/dL RDW Std Deviation (28.0-62.0) fl RDW Coeff of Kavon (11.0-15.0) % Plt Count (150-400) K/uL MPV (7.40-12.00) fL Neut % (Auto) (48.0-80.0) % Lymph % (Auto) (16.0-40.0) % Foard % (Auto) (0.0-15.0) % Eos % (Auto) (0.0-7.0) % Baso % (Auto) (0.0-1.5) % Neut # (Auto) (1.4-5.7) K/uL Lymph # (Auto) (0.6-2.4) K/uL Foard # (Auto) (0.0-0.8) K/uL Eos # (Auto) (0.0-0.7) K/uL Baso # (Auto) (0.0-0.1) K/uL Nucleated RBC % /100WBC Nucleated RBCs # K/uL D-Dimer, Quantitative (0.0-0.50) mg/L FEU ABG pH 7.47 H (7.35-7.45) ABG pCO2 41 (35-45) mmHG ABG pO2 65 L (80-105) mmHG ABG HCO3 29 H (22-26) mEq/L ABG Total CO2 25.1 (23-27) mmol/L ABG Base Excess 5.2 H (-2.0-3.0) Sodium (136-148) mmol/L Potassium (3.5-5.1) mmol/L Chloride (98-107) mmol/L Carbon Dioxide (21.0-32.0) mmol/L BUN (7.0-18.0) mg/dL Creatinine (0.8-1.3) mg/dL Est Cr Clr Drug Dosing mL/min Estimated GFR (MDRD) ml/min Glucose (74-106) mg/dL Hemoglobin A1c (4.5 - 6.2) % Calcium (8.5-10.1) mg/dL Phosphorus 3.4 (2.6-4.7) mg/dL Magnesium 3.0 H (1.8-2.4) mg/dL Total Bilirubin (0.2-1.0) mg/dL AST (15-37) IU/L ALT (14-63) IU/L Alkaline Phosphatase (46-116) U/L Troponin I (0.000-0.056) ng/mL C-Reactive Protein (0.00-0.90) mg/dL Total Protein (6.4-8.2) g/dL Albumin (3.4-5.0) g/dL Globulin (2.6-4.0) g/dL Albumin/Globulin Ratio (0.9-1.6) SARS-CoV-2 RNA (JESSICA) (NEGATIVE) Med Orders - Current: Current Medications Albuterol/Ipratropium (Albuterol/Ipratropium 3.0-0.5 Mg/3 Ml Neb Soln) 3 ml NEB Q4HRRT [facility] Last Admin: 03/26/21 09:00 Dose: 3 ml Documented by: Dexamethasone (Dexamethasone 4 Mg Tab) 6 mg PO DAILY [facility] Last Admin: 03/26/21 12:42 Dose: 6 mg Documented by: Enoxaparin Sodium (Enoxaparin 40 Mg/0.4 Ml Syringe) 40 mg SUBCUT Q12HR [facility] Last Admin: 03/26/21 09:00 Dose: 40 mg Documented by: Guaifenesin/Dextromethorphan (Guaifenesin/Dextromethorphan 100-10 Mg/5 Ml Soln 10 Ml Cup) 10 ml PO Q4H PRN PRN Reason: Cough Pantoprazole Sodium 40 mg/ (Sodium Chloride) 10 mls @ 300 mls/hr IV Q24H [facility] Last Admin: 03/25/21 18:34 Dose: 300 mls/hr Documented by: Remdesivir 100 mg/ Sodium (Chloride) 100 mls @ 100 mls/hr IV Q24H [facility] Stop: 03/29/21 18:29 Discontinued Medications Albuterol/Ipratropium (Albuterol/Ipratropium 4 Gm Inhalation [place]) 1 gm INH Q4HRRT PRN PRN Reason: Dyspnea Dexamethasone (Dexamethasone 10 Mg/Ml Sdv) 6 mg IVPUSH ONETIME ONE Stop: 03/25/21 12:44 Last Admin: 03/25/21 13:06 Dose: 6 mg Documented by: Remdesivir 200 mg/ Sodium (Chloride) 250 mls @ 250 mls/hr IV ONETIME ONE Stop: 03/25/21 17:29 Last Admin: 03/25/21 17:19 Dose: 250 mls/hr Documented by: Iopamidol (Iopamidol 755 Mg/Ml 500 Ml Multipack Bottle) 100 ml IVPUSH ONETIME STA Stop: 03/26/21 01:46 Last Admin: 03/26/21 01:46 Dose: 100 ml Documented by: Ketorolac Tromethamine (Ketorolac 15 Mg/Ml Sdv) 15 mg IVPUSH ONETIME ONE Stop: 03/25/21 12:44 Last Admin: 03/25/21 13:06 Dose: 15 mg Documented by: - Exam General: Alert, Oriented, Cooperative HEENT: Other (Dry mucous membranes) Neck: Trachea Midline Lungs: Other (BiPAP in place) Cardiovascular: Regular Rate, Regular Rhythm, No Murmurs GI/Abdominal Exam: Normal Bowel Sounds, Soft, Non-Tender, No Organomegaly, Other (Obese body habitus) - Patient Data Lab Results Last 24 hrs: Laboratory Results - last 24 hr 03/25/21 03/25/21 03/25/21 Range/Units 12:34 12:39 13:08 WBC (4.0-11.0) K/uL RBC (4.50-5.90) M/uL Hgb (13.0-17.0) g/dL Hct (38.0-50.0) % MCV (80.0-98.0) fL MCH (27.0-32.0) pg MCHC (31.0-37.0) g/dL RDW Std Deviation (28.0-62.0) fl RDW Coeff of Kavon (11.0-15.0) % Plt Count (150-400) K/uL MPV (7.40-12.00) fL Neut % (Auto) (48.0-80.0) % Lymph % (Auto) (16.0-40.0) % Foard % (Auto) (0.0-15.0) % Eos % (Auto) (0.0-7.0) % Baso % (Auto) (0.0-1.5) % Neut # (Auto) (1.4-5.7) K/uL Lymph # (Auto) (0.6-2.4) K/uL Foard # (Auto) (0.0-0.8) K/uL Eos # (Auto) (0.0-0.7) K/uL Baso # (Auto) (0.0-0.1) K/uL Nucleated RBC % /100WBC Nucleated RBCs # K/uL D-Dimer, Quantitative (0.0-0.50) mg/L FEU ABG pH (7.35-7.45) ABG pCO2 (35-45) mmHG ABG pO2 (80-105) mmHG ABG HCO3 (22-26) mEq/L ABG Total CO2 (23-27) mmol/L ABG Base Excess (-2.0-3.0) Sodium 133 L (136-148) mmol/L Potassium 3.9 (3.5-5.1) mmol/L Chloride 95 L (98-107) mmol/L Carbon Dioxide 24.3 (21.0-32.0) mmol/L BUN 15 (7.0-18.0) mg/dL Creatinine 1.3 (0.8-1.3) mg/dL Est Cr Clr Drug Dosing 74.01 mL/min Estimated GFR (MDRD) 58.9 ml/min Glucose 128 H (74-106) mg/dL Hemoglobin A1c 5.6 (4.5 - 6.2) % Calcium 7.3 L (8.5-10.1) mg/dL Phosphorus (2.6-4.7) mg/dL Magnesium 2.3 (1.8-2.4) mg/dL Total Bilirubin 1.4 H (0.2-1.0) mg/dL AST 105 H (15-37) IU/L ALT 73 H (14-63) IU/L Alkaline Phosphatase 39 L (46-116) U/L Troponin I < 0.050 (0.000-0.056) ng/mL C-Reactive Protein 27.10 H (0.00-0.90) mg/dL Total Protein 6.8 (6.4-8.2) g/dL Albumin 2.9 L (3.4-5.0) g/dL Globulin 3.9 (2.6-4.0) g/dL Albumin/Globulin Ratio 0.7 L (0.9-1.6) SARS-CoV-2 RNA (JESSICA) POSITIVE H (NEGATIVE) 03/25/21 03/26/21 03/26/21 Range/Units 22:21 06:00 06:00 WBC 13.83 H (4.0-11.0) K/uL RBC 4.97 (4.50-5.90) M/uL Hgb 15.9 (13.0-17.0) g/dL Hct 46.1 (38.0-50.0) % MCV 92.8 (80.0-98.0) fL MCH 32.0 (27.0-32.0) pg MCHC 34.5 (31.0-37.0) g/dL RDW Std Deviation 44.4 (28.0-62.0) fl RDW Coeff of Kavon 13 (11.0-15.0) % Plt Count 229 (150-400) K/uL MPV 10.10 (7.40-12.00) fL Neut % (Auto) 92.9 H (48.0-80.0) % Lymph % (Auto) 3.3 L (16.0-40.0) % Foard % (Auto) 3.7 (0.0-15.0) % Eos % (Auto) 0.0 (0.0-7.0) % Baso % (Auto) 0.1 (0.0-1.5) % Neut # (Auto) 12.9 H (1.4-5.7) K/uL Lymph # (Auto) 0.5 L (0.6-2.4) K/uL Foard # (Auto) 0.5 (0.0-0.8) K/uL Eos # (Auto) 0.0 (0.0-0.7) K/uL Baso # (Auto) 0.0 (0.0-0.1) K/uL Nucleated RBC % 0.0 /100WBC Nucleated RBCs # 0 K/uL D-Dimer, Quantitative 1.22 H (0.0-0.50) mg/L FEU ABG pH (7.35-7.45) ABG pCO2 (35-45) mmHG ABG pO2 (80-105) mmHG ABG HCO3 (22-26) mEq/L ABG Total CO2 (23-27) mmol/L ABG Base Excess (-2.0-3.0) Sodium 140 (136-148) mmol/L Potassium 4.0 (3.5-5.1) mmol/L Chloride 100 (98-107) mmol/L Carbon Dioxide 30.7 (21.0-32.0) mmol/L BUN 17 (7.0-18.0) mg/dL Creatinine 0.9 (0.8-1.3) mg/dL Est Cr Clr Drug Dosing 106.91 mL/min Estimated GFR (MDRD) > 60.0 ml/min Glucose 96 (74-106) mg/dL Hemoglobin A1c (4.5 - 6.2) % Calcium 7.2 L (8.5-10.1) mg/dL Phosphorus (2.6-4.7) mg/dL Magnesium (1.8-2.4) mg/dL Total Bilirubin 1.0 (0.2-1.0) mg/dL AST 81 H (15-37) IU/L ALT 62 (14-63) IU/L Alkaline Phosphatase 41 L (46-116) U/L Troponin I (0.000-0.056) ng/mL C-Reactive Protein (0.00-0.90) mg/dL Total Protein 6.3 L (6.4-8.2) g/dL Albumin 2.5 L (3.4-5.0) g/dL Globulin 3.8 (2.6-4.0) g/dL Albumin/Globulin Ratio 0.7 L (0.9-1.6) SARS-CoV-2 RNA (JESSICA) (NEGATIVE) 03/26/21 03/26/21 Range/Units 06:00 10:05 WBC (4.0-11.0) K/uL RBC (4.50-5.90) M/uL Hgb (13.0-17.0) g/dL Hct (38.0-50.0) % MCV (80.0-98.0) fL MCH (27.0-32.0) pg MCHC (31.0-37.0) g/dL RDW Std Deviation (28.0-62.0) fl RDW Coeff of Kavon (11.0-15.0) % Plt Count (150-400) K/uL MPV (7.40-12.00) fL Neut % (Auto) (48.0-80.0) % Lymph % (Auto) (16.0-40.0) % Foard % (Auto) (0.0-15.0) % Eos % (Auto) (0.0-7.0) % Baso % (Auto) (0.0-1.5) % Neut # (Auto) (1.4-5.7) K/uL Lymph # (Auto) (0.6-2.4) K/uL Foard # (Auto) (0.0-0.8) K/uL Eos # (Auto) (0.0-0.7) K/uL Baso # (Auto) (0.0-0.1) K/uL Nucleated RBC % /100WBC Nucleated RBCs # K/uL D-Dimer, Quantitative (0.0-0.50) mg/L FEU ABG pH 7.47 H (7.35-7.45) ABG pCO2 41 (35-45) mmHG ABG pO2 65 L (80-105) mmHG ABG HCO3 29 H (22-26) mEq/L ABG Total CO2 25.1 (23-27) mmol/L ABG Base Excess 5.2 H (-2.0-3.0) Sodium (136-148) mmol/L Potassium (3.5-5.1) mmol/L Chloride (98-107) mmol/L Carbon Dioxide (21.0-32.0) mmol/L BUN (7.0-18.0) mg/dL Creatinine (0.8-1.3) mg/dL Est Cr Clr Drug Dosing mL/min Estimated GFR (MDRD) ml/min Glucose (74-106) mg/dL Hemoglobin A1c (4.5 - 6.2) % Calcium (8.5-10.1) mg/dL Phosphorus 3.4 (2.6-4.7) mg/dL Magnesium 3.0 H (1.8-2.4) mg/dL Total Bilirubin (0.2-1.0) mg/dL AST (15-37) IU/L ALT (14-63) IU/L Alkaline Phosphatase (46-116) U/L Troponin I (0.000-0.056) ng/mL C-Reactive Protein (0.00-0.90) mg/dL Total Protein (6.4-8.2) g/dL Albumin (3.4-5.0) g/dL Globulin (2.6-4.0) g/dL Albumin/Globulin Ratio (0.9-1.6) SARS-CoV-2 RNA (JESSICA) (NEGATIVE) Result Diagrams: 03/26/21 06:00 03/26/21 06:00 Sepsis Event Note - Evaluation Sepsis Screening Result: Possible Sepsis Risk - Focused Exam Vital Signs: Vital Signs Temp Resp BP Pulse Ox 03/26/21 12:00 97.7 F 30 H 119/70 90 L 03/26/21 11:00 44 H 131/78 94 L 03/26/21 10:00 45 H 92 L 03/26/21 09:00 96.8 F L 40 H 114/81 93 L 03/26/21 08:00 25 H 106/76 90 L 03/26/21 07:00 35 H 97/60 89 L 03/26/21 06:00 41 H 111/72 89 L 03/26/21 05:00 35 H 97/63 92 L 03/26/21 04:00 96.9 F 33 H 102/60 94 L 03/26/21 03:00 42 H 120/79 89 L 03/26/21 02:00 32 H 128/72 91 L - Problem List & Annotations (1) COVID-19 SNOMED Code(s): 826048090 Code(s): U07.1 - COVID-19 Status: Acute Current Visit: Yes (2) Obesity SNOMED Code(s): 487842237, 801615133 Code(s): E66.9 - OBESITY, UNSPECIFIED Status: Acute Current Visit: Yes - Problem List Review Problem List Initiated/Reviewed/Updated: Yes - My Orders Last 24 Hours: My Active Orders 03/25/21 17:28 Dextromethorphan/guaiFENesin [Robitussin DM] 10 ml PO Q4H PRN 03/25/21 17:30 Pantoprazole [ProTONIX IV] 40 mg Sodium Chloride 0.9% [Normal Saline] 10 ml IV Q24H 03/25/21 17:32 RT Post Treatment Assessment [RC] Click to Edit RT Pre-Treatment Assessment [RC] Click to Edit 03/25/21 17:41 RT Aerosol Therapy [RC] ASDIRECTED 03/25/21 18:00 Albuterol/Ipratropium [DuoNeb 3.0-0.5 MG/3 ML] 3 ml NEB Q4HRRT 03/25/21 21:00 Enoxaparin [Lovenox] 40 mg SUBCUT Q12HR 03/26/21 Breakfast Regular Diet [DIET] 03/26/21 11:49 Code Status [Resuscitation Status] Routine 03/26/21 17:30 Remdesivir 100 mg Sodium Chloride 0.9% [Normal Saline] 100 ml IV Q24H 03/27/21 05:11 CBC WITH AUTO DIFF [HEME] AM CMP [COMPREHENSIVE METABOLIC PN,CMP] [CHEM] AM 03/28/21 05:11 CBC WITH AUTO DIFF [HEME] AM CMP [COMPREHENSIVE METABOLIC PN,CMP] [CHEM] AM - Plan Plan:: 1. Acute respiratory failure secondary to COVID-19 pneumonia -The patient is currently on BiPAP saturating between 88 and 91 with a FiO2 of 90, IPAP of 14, EPAP of 8, tidal volume in the 800s. We will continue this patient on BiPAP as appropriate. -We will continue the patient on remdesivir 100 mg IV route -We will continue the patient on dexamethasone 6 mg p.o. once a day. -For cough the patient has been put on Robitussin DM every 4 hours as needed. -For shortness of breath the patient has been placed on duo nebs every 4 hours scheduled. -Baricitinib treatment has been initiated, 4 mg per oral route -Magnesium level, phosphorus level, and ABGs have been ordered -Daily CBC/CMP. 2. Obesity with a BMI over 40 -Hemoglobin A1c came back within normal limits, when appropriate the patient will be counseled on lifestyle modifications including diet and exercise for his obesity <Devin Brown - Last Filed: 03/28/21 15:30> - Patient Data Vitals - Most Recent: Last Vital Signs Temp 35.9 C L 03/28/21 12:00 Pulse 79 03/25/21 19:12 Resp 17 03/28/21 13:00 BP 115/67 03/28/21 13:00 Pulse Ox 87 L 03/28/21 13:00 I&O - Last 24 Hours: Intake & Output 03/28/21 03/28/21 03/28/21 06:59 14:59 22:59 Intake Total 950 Output Total 850 Balance 100 Lab Results Last 24 Hours: Laboratory Results - last 24 hr 03/28/21 03/28/21 03/28/21 Range/Units 06:21 06:21 10:30 WBC 17.15 H (4.0-11.0) K/uL RBC 4.90 (4.50-5.90) M/uL Hgb 15.6 (13.0-17.0) g/dL Hct 46.1 (38.0-50.0) % MCV 94.1 (80.0-98.0) fL MCH 31.8 (27.0-32.0) pg MCHC 33.8 (31.0-37.0) g/dL RDW Std Deviation 45.7 (28.0-62.0) fl RDW Coeff of Kavon 13 (11.0-15.0) % Plt Count 216 (150-400) K/uL MPV 10.40 (7.40-12.00) fL Neut % (Auto) 93.7 H (48.0-80.0) % Lymph % (Auto) 2.9 L (16.0-40.0) % Foard % (Auto) 3.1 (0.0-15.0) % Eos % (Auto) 0.1 (0.0-7.0) % Baso % (Auto) 0.2 (0.0-1.5) % Neut # (Auto) 16.1 H (1.4-5.7) K/uL Lymph # (Auto) 0.5 L (0.6-2.4) K/uL Foard # (Auto) 0.5 (0.0-0.8) K/uL Eos # (Auto) 0.0 (0.0-0.7) K/uL Baso # (Auto) 0.0 (0.0-0.1) K/uL Nucleated RBC % 0.0 /100WBC Nucleated RBCs # 0 K/uL ABG pH 7.51 H (7.35-7.45) ABG pCO2 38 (35-45) mmHG ABG pO2 79 L (80-105) mmHG ABG HCO3 30 H (22-26) mEq/L ABG Total CO2 25.8 (23-27) mmol/L ABG Base Excess 7.0 H (-2.0-3.0) Sodium 139 (136-148) mmol/L Potassium 4.1 (3.5-5.1) mmol/L Chloride 99 (98-107) mmol/L Carbon Dioxide 31.1 (21.0-32.0) mmol/L BUN 14 (7.0-18.0) mg/dL Creatinine 0.8 (0.8-1.3) mg/dL Est Cr Clr Drug Dosing 120.27 mL/min Estimated GFR (MDRD) > 60.0 ml/min Glucose 106 (74-106) mg/dL Calcium 7.3 L (8.5-10.1) mg/dL Total Bilirubin 1.5 H (0.2-1.0) mg/dL AST 98 H (15-37) IU/L ALT 64 H (14-63) IU/L Alkaline Phosphatase 77 (46-116) U/L Total Protein 6.3 L (6.4-8.2) g/dL Albumin 2.5 L (3.4-5.0) g/dL Globulin 3.8 (2.6-4.0) g/dL Albumin/Globulin Ratio 0.7 L (0.9-1.6) Med Orders - Current: Current Medications Albuterol/Ipratropium (Albuterol/Ipratropium 3.0-0.5 Mg/3 Ml Neb Soln) 3 ml NEB Q4HRRT [facility] Last Admin: 03/28/21 13:27 Dose: 3 ml Documented by: Dexamethasone (Dexamethasone 4 Mg/Ml Sdv) 6 mg IVPUSH DAILY [facility] Last Admin: 03/28/21 08:34 Dose: 6 mg Documented by: Enoxaparin Sodium (Enoxaparin 40 Mg/0.4 Ml Syringe) 40 mg SUBCUT Q12HR [facility] Last Admin: 03/28/21 08:34 Dose: 40 mg Documented by: Guaifenesin/Codeine Phosphate (Codeine/Guaifenesin 10-100 Mg/5 Ml Syrup 5 Ml Cup) 5 ml PO Q4H PRN PRN Reason: Cough Last Admin: 03/28/21 14:02 Dose: 5 ml Documented by: Pantoprazole Sodium 40 mg/ (Sodium Chloride) 10 mls @ 300 mls/hr IV Q24H [facility] Last Admin: 03/27/21 16:32 Dose: 300 mls/hr Documented by: Remdesivir 100 mg/ Sodium (Chloride) 100 mls @ 100 mls/hr IV Q24H [facility] Stop: 03/29/21 18:29 Last Admin: 03/27/21 16:32 Dose: 100 mls/hr Documented by: Sodium Chloride (Sodium Chloride 0.65% Nasal [place] 45 Ml Bottle) 0 ml KANDIS Q4H PRN PRN Reason: nasal congestion Last Admin: 03/28/21 01:10 Dose: 1 spray Documented by: Discontinued Medications Albuterol/Ipratropium (Albuterol/Ipratropium 4 Gm Inhalation [place]) 1 gm INH Q4HRRT PRN PRN Reason: Dyspnea Dexamethasone (Dexamethasone 10 Mg/Ml Sdv) 6 mg IVPUSH ONETIME ONE Stop: 03/25/21 12:44 Last Admin: 03/25/21 13:06 Dose: 6 mg Documented by: Dexamethasone (Dexamethasone 4 Mg Tab) 6 mg PO DAILY [facility] Last Admin: 03/26/21 12:42 Dose: 6 mg Documented by: Guaifenesin/Dextromethorphan (Guaifenesin/Dextromethorphan 100-10 Mg/5 Ml Soln 10 Ml Cup) 10 ml PO Q4H PRN PRN Reason: Cough Last Admin: 03/27/21 10:26 Dose: 10 ml Documented by: Guaifenesin/Dextromethorphan (Guaifenesin/Dextromethorphan 100-10 Mg/5 Ml Soln 10 Ml Cup) 10 ml PO Q4H [facility] Guaifenesin/Dextromethorphan (Guaifenesin/Dextromethorphan 100-10 Mg/5 Ml Soln 10 Ml Cup) 10 ml PO Q4H [facility] Last Admin: 03/28/21 05:56 Dose: 10 ml Documented by: Remdesivir 200 mg/ Sodium (Chloride) 250 mls @ 250 mls/hr IV ONETIME ONE Stop: 03/25/21 17:29 Last Admin: 03/25/21 17:19 Dose: 250 mls/hr Documented by: Iopamidol (Iopamidol 755 Mg/Ml 500 Ml Multipack Bottle) 100 ml IVPUSH ONETIME STA Stop: 03/26/21 01:46 Last Admin: 03/26/21 01:46 Dose: 100 ml Documented by: Ketorolac Tromethamine (Ketorolac 15 Mg/Ml Sdv) 15 mg IVPUSH ONETIME ONE Stop: 03/25/21 12:44 Last Admin: 03/25/21 13:06 Dose: 15 mg Documented by: - Patient Data Lab Results Last 24 hrs: Laboratory Results - last 24 hr 03/28/21 03/28/21 03/28/21 Range/Units 06:21 06:21 10:30 WBC 17.15 H (4.0-11.0) K/uL RBC 4.90 (4.50-5.90) M/uL Hgb 15.6 (13.0-17.0) g/dL Hct 46.1 (38.0-50.0) % MCV 94.1 (80.0-98.0) fL MCH 31.8 (27.0-32.0) pg MCHC 33.8 (31.0-37.0) g/dL RDW Std Deviation 45.7 (28.0-62.0) fl RDW Coeff of Kavon 13 (11.0-15.0) % Plt Count 216 (150-400) K/uL MPV 10.40 (7.40-12.00) fL Neut % (Auto) 93.7 H (48.0-80.0) % Lymph % (Auto) 2.9 L (16.0-40.0) % [place] % (Auto) 3.1 (0.0-15.0) % Eos % (Auto) 0.1 (0.0-7.0) % Baso % (Auto) 0.2 (0.0-1.5) % Neut # (Auto) 16.1 H (1.4-5.7) K/uL Lymph # (Auto) 0.5 L (0.6-2.4) K/uL [place] # (Auto) 0.5 (0.0-0.8) K/uL Eos # (Auto) 0.0 (0.0-0.7) K/uL Baso # (Auto) 0.0 (0.0-0.1) K/uL Nucleated RBC % 0.0 /100WBC Nucleated RBCs # 0 K/uL ABG pH 7.51 H (7.35-7.45) ABG pCO2 38 (35-45) mmHG ABG pO2 79 L (80-105) mmHG ABG HCO3 30 H (22-26) mEq/L ABG Total CO2 25.8 (23-27) mmol/L ABG Base Excess 7.0 H (-2.0-3.0) Sodium 139 (136-148) mmol/L Potassium 4.1 (3.5-5.1) mmol/L Chloride 99 (98-107) mmol/L Carbon Dioxide 31.1 (21.0-32.0) mmol/L BUN 14 (7.0-18.0) mg/dL Creatinine 0.8 (0.8-1.3) mg/dL Est Cr Clr Drug Dosing 120.27 mL/min Estimated GFR (MDRD) > 60.0 ml/min Glucose 106 (74-106) mg/dL Calcium 7.3 L (8.5-10.1) mg/dL Total Bilirubin 1.5 H (0.2-1.0) mg/dL AST 98 H (15-37) IU/L ALT 64 H (14-63) IU/L Alkaline Phosphatase 77 (46-116) U/L Total Protein 6.3 L (6.4-8.2) g/dL Albumin 2.5 L (3.4-5.0) g/dL Globulin 3.8 (2.6-4.0) g/dL Albumin/Globulin Ratio 0.7 L (0.9-1.6) Result Diagrams: 03/28/21 06:21 03/28/21 06:21 Sepsis Event Note - Focused Exam Vital Signs: Vital Signs Temp Resp BP Pulse Ox 10/02/21 13:00 17 115/67 87 L 03/28/21 12:00 35.9 C L 20 112/59 L 87 L 03/28/21 11:00 36 H 142/91 H 92 L 03/28/21 10:00 40 H 127/82 88 L 03/28/21 09:00 41 H 118/73 93 L 03/28/21 08:00 36.3 C 39 H 125/72 90 L 03/28/21 07:00 31 H 125/72 90 L 03/28/21 06:00 34 H 136/81 92 L 03/28/21 05:00 32 H 129/75 94 L 03/28/21 04:00 37.0 C 30 H 153/83 H 91 L - Problem List & Annotations (1) Hypoxia SNOMED Code(s): 253840207 Code(s): R09.02 - HYPOXEMIA Status: Acute Current Visit: Yes (2) Obesity SNOMED Code(s): 711689830, 849829281 Code(s): E66.9 - OBESITY, UNSPECIFIED Status: Acute Current Visit: Yes (3) COVID-19 SNOMED Code(s): 822360871 Code(s): U07.1 - COVID-19 Status: Acute Current Visit: Yes - My Orders Last 24 Hours: My Active Orders 03/28/21 01:03 Sodium Chloride 0.65% [[place] Nasal [place]] See Dose Instructions KANDIS Q4H PRN - Plan Plan:: I have seen and evaluated the patient and agree with the residents note unless specified in my note
[2021-03-26] MEDS: REMDESIVIR 100 MG in Sodium Chloride 0.9% 100 ML IV SCH (17:14)
[2021-03-26] MEDS: Pantoprazole 40 MG in Sodium Chloride 0.9% 10 ML IV SCH (17:15)
[2021-03-26] MEDS: guaiFENesin/Dextromethorphan 100-10 MG/5 ML Soln 10 ML Cup PO PRN (17:55)
[2021-03-27] MEDS: Albuterol/Ipratropium 3.0-0.5 MG/3 ML Neb Soln NEB SCH ×6 (02:28→22:30)
[2021-03-27] MEDS: guaiFENesin/Dextromethorphan 100-10 MG/5 ML Soln 10 ML Cup PO PRN ×2 (05:18→10:26)
[2021-03-27 07:30] LABS: BLOOD UREA NITROGEN,BUN 17 mg/dL (7.0-18.0); CARBON DIOXIDE,CO2 29.1 mmol/L (21.0-32.0); CHLORIDE,CL 100 mmol/L (98-107); GLUCOSE RANDOM 122 mg/dL (74-106); POTASSIUM,K 3.9 mmol/L (3.5-5.1); SODIUM,NA 140 mmol/L (136-148)
[2021-03-27] MEDS: Dexamethasone 4 MG/ML SDV IVPUSH SCH (09:01)
[2021-03-27] MEDS: Enoxaparin 40 MG/0.4 ML Syringe SUBCUT SCH ×2 (09:02→21:07)
[2021-03-27] MEDS: guaiFENesin/Dextromethorphan 100-10 MG/5 ML Soln 10 ML Cup PO SCH ×3 (14:33→22:30)
[2021-03-27] MEDS ORDERED: guaiFENesin/Dextromethorphan 100-10 MG/5 ML Soln 10 ML Cup PO SCH (16:00)
[2021-03-27] MEDS: Pantoprazole 40 MG in Sodium Chloride 0.9% 10 ML IV SCH (16:32)
[2021-03-27] MEDS: REMDESIVIR 100 MG in Sodium Chloride 0.9% 100 ML IV SCH (16:32)
--- NOTE | 2021-03-27 16:36 | PCM.PN ---
<Rosa Jay - Last Filed: 03/27/21 16:28> - General Info Date of Service: 03/27/21 Subjective Update: The patient is a 50-year-old male who was admitted to the medical floor due to acute respiratory failure secondary to COVID-19 pneumonia. He has no known significant past medical history but is obese with a BMI of over 40. He is currently on heated high flow, 60 L, FiO2 of 85, with a respiratory rate in the 30s. The patient agreed yesterday to start baricitinib treatment and received his second 4 mg per oral route dose today. On interview today, the patient addressed his concern about length of stay in the hospital. He admitted that he did not want to stay in the hospital for 14 days but was educated on progress made with respect to oxygen demand in COVID-19 pneumonia patient's. It was explained to him that he was on CPAP previously, is on heated high flow now at 60 L, and that when patients get to 2 L on nasal cannula, they are then ready to be discharged when clinically improved. It was further explained to him that he has to be patient with respect to his treatment and that efforts are being made in order to save his life. After this discussion the patient was relieved in regards to his current complaints. Upon further interview, he admitted that he can breathe better then on admission and that he has less shortness of breath. He admits to ongoing cough and dryness in the back of his throat. He denies any chest pains, palpitations, abdominal pain, headache, dizziness, or issues with urination and/or defecation. The patient has no other concerns at this time. - Review of Systems General: Denies: Fever, Fatigue, Chills HEENT: Reports: Other (Dry mouth and throat) Pulmonary: Reports: Shortness of Breath, Cough Cardiovascular: Denies: Chest Pain, Palpitations Gastrointestinal: Denies: Abdominal Pain Genitourinary: Denies: Dysuria, Frequency Neurological: Denies: Dizziness, Headache - Patient Data Vitals - Most Recent: Last Vital Signs Temp 96.8 F L 03/27/21 13:00 Pulse 79 03/25/21 19:12 Resp 20 03/27/21 15:00 BP 111/72 03/27/21 15:00 Pulse Ox 90 L 03/27/21 15:00 Weight - Most Recent: 141.026 kg I&O - Last 24 Hours: Intake & Output 03/27/21 03/27/21 03/27/21 06:59 14:59 22:59 Intake Total 700 Output Total 850 Balance -150 Lab Results Last 24 Hours: Laboratory Results - last 24 hr 03/27/21 03/27/21 Range/Units 06:05 06:05 WBC 16.54 H (4.0-11.0) K/uL RBC 4.82 (4.50-5.90) M/uL Hgb 15.3 (13.0-17.0) g/dL Hct 45.2 (38.0-50.0) % MCV 93.8 (80.0-98.0) fL MCH 31.7 (27.0-32.0) pg MCHC 33.8 (31.0-37.0) g/dL RDW Std Deviation 45.5 (28.0-62.0) fl RDW Coeff of Kavon 13 (11.0-15.0) % Plt Count 234 (150-400) K/uL MPV 10.30 (7.40-12.00) fL Neut % (Auto) 93.9 H (48.0-80.0) % Lymph % (Auto) 3.0 L (16.0-40.0) % [place] % (Auto) 3.0 (0.0-15.0) % Eos % (Auto) 0.0 (0.0-7.0) % Baso % (Auto) 0.1 (0.0-1.5) % Neut # (Auto) 15.6 H (1.4-5.7) K/uL Lymph # (Auto) 0.5 L (0.6-2.4) K/uL [place] # (Auto) 0.5 (0.0-0.8) K/uL Eos # (Auto) 0.0 (0.0-0.7) K/uL Baso # (Auto) 0.0 (0.0-0.1) K/uL Nucleated RBC % 0.0 /100WBC Nucleated RBCs # 0 K/uL Sodium 140 (136-148) mmol/L Potassium 3.9 (3.5-5.1) mmol/L Chloride 100 (98-107) mmol/L Carbon Dioxide 29.1 (21.0-32.0) mmol/L BUN 17 (7.0-18.0) mg/dL Creatinine 0.9 (0.8-1.3) mg/dL Est Cr Clr Drug Dosing 106.91 mL/min Estimated GFR (MDRD) > 60.0 ml/min Glucose 122 H (74-106) mg/dL Calcium 7.3 L (8.5-10.1) mg/dL Total Bilirubin 1.0 (0.2-1.0) mg/dL AST 86 H (15-37) IU/L ALT 60 (14-63) IU/L Alkaline Phosphatase 55 (46-116) U/L Total Protein 6.2 L (6.4-8.2) g/dL Albumin 2.6 L (3.4-5.0) g/dL Globulin 3.6 (2.6-4.0) g/dL Albumin/Globulin Ratio 0.7 L (0.9-1.6) Med Orders - Current: Current Medications Albuterol/Ipratropium (Albuterol/Ipratropium 3.0-0.5 Mg/3 Ml Neb Soln) 3 ml NEB Q4HRRT [facility] Last Admin: 03/27/21 13:33 Dose: 3 ml Documented by: Dexamethasone (Dexamethasone 4 Mg/Ml Sdv) 6 mg IVPUSH DAILY [facility] Last Admin: 03/27/21 09:01 Dose: 6 mg Documented by: Enoxaparin Sodium (Enoxaparin 40 Mg/0.4 Ml Syringe) 40 mg SUBCUT Q12HR [facility] Last Admin: 03/27/21 09:02 Dose: 40 mg Documented by: Guaifenesin/Dextromethorphan (Guaifenesin/Dextromethorphan 100-10 Mg/5 Ml Soln 10 Ml Cup) 10 ml PO Q4H [facility] Last Admin: 03/27/21 14:33 Dose: 10 ml Documented by: Pantoprazole Sodium 40 mg/ (Sodium Chloride) 10 mls @ 300 mls/hr IV Q24H [facility] Last Admin: 03/26/21 17:15 Dose: 300 mls/hr Documented by: Remdesivir 100 mg/ Sodium (Chloride) 100 mls @ 100 mls/hr IV Q24H [facility] Stop: 03/29/21 18:29 Last Admin: 03/26/21 17:14 Dose: 100 mls/hr Documented by: Discontinued Medications Albuterol/Ipratropium (Albuterol/Ipratropium 4 Gm Inhalation [place]) 1 gm INH Q4HRRT PRN PRN Reason: Dyspnea Dexamethasone (Dexamethasone 10 Mg/Ml Sdv) 6 mg IVPUSH ONETIME ONE Stop: 03/25/21 12:44 Last Admin: 03/25/21 13:06 Dose: 6 mg Documented by: Dexamethasone (Dexamethasone 4 Mg Tab) 6 mg PO DAILY [facility] Last Admin: 03/26/21 12:42 Dose: 6 mg Documented by: Guaifenesin/Dextromethorphan (Guaifenesin/Dextromethorphan 100-10 Mg/5 Ml Soln 10 Ml Cup) 10 ml PO Q4H PRN PRN Reason: Cough Last Admin: 03/27/21 10:26 Dose: 10 ml Documented by: Guaifenesin/Dextromethorphan (Guaifenesin/Dextromethorphan 100-10 Mg/5 Ml Soln 10 Ml Cup) 10 ml PO Q4H [facility] Remdesivir 200 mg/ Sodium (Chloride) 250 mls @ 250 mls/hr IV ONETIME ONE Stop: 03/25/21 17:29 Last Admin: 03/25/21 17:19 Dose: 250 mls/hr Documented by: Iopamidol (Iopamidol 755 Mg/Ml 500 Ml Multipack Bottle) 100 ml IVPUSH ONETIME STA Stop: 03/26/21 01:46 Last Admin: 03/26/21 01:46 Dose: 100 ml Documented by: Ketorolac Tromethamine (Ketorolac 15 Mg/Ml Sdv) 15 mg IVPUSH ONETIME ONE Stop: 03/25/21 12:44 Last Admin: 03/25/21 13:06 Dose: 15 mg Documented by: - Exam General: Alert, Oriented, Cooperative HEENT: Other (Mucous membranes dry) Neck: Trachea Midline Lungs: Other (Patient is currently on heated high flow, no abnormal lung sounds heard) Cardiovascular: Regular Rate, Regular Rhythm, No Murmurs GI/Abdominal Exam: Normal Bowel Sounds, Soft, Non-Tender, Other (Obese body habitus) - Patient Data Lab Results Last 24 hrs: Laboratory Results - last 24 hr 03/27/21 03/27/21 Range/Units 06:05 06:05 WBC 16.54 H (4.0-11.0) K/uL RBC 4.82 (4.50-5.90) M/uL Hgb 15.3 (13.0-17.0) g/dL Hct 45.2 (38.0-50.0) % MCV 93.8 (80.0-98.0) fL MCH 31.7 (27.0-32.0) pg MCHC 33.8 (31.0-37.0) g/dL RDW Std Deviation 45.5 (28.0-62.0) fl RDW Coeff of Kavon 13 (11.0-15.0) % Plt Count 234 (150-400) K/uL MPV 10.30 (7.40-12.00) fL Neut % (Auto) 93.9 H (48.0-80.0) % Lymph % (Auto) 3.0 L (16.0-40.0) % [place] % (Auto) 3.0 (0.0-15.0) % Eos % (Auto) 0.0 (0.0-7.0) % Baso % (Auto) 0.1 (0.0-1.5) % Neut # (Auto) 15.6 H (1.4-5.7) K/uL Lymph # (Auto) 0.5 L (0.6-2.4) K/uL [place] # (Auto) 0.5 (0.0-0.8) K/uL Eos # (Auto) 0.0 (0.0-0.7) K/uL Baso # (Auto) 0.0 (0.0-0.1) K/uL Nucleated RBC % 0.0 /100WBC Nucleated RBCs # 0 K/uL Sodium 140 (136-148) mmol/L Potassium 3.9 (3.5-5.1) mmol/L Chloride 100 (98-107) mmol/L Carbon Dioxide 29.1 (21.0-32.0) mmol/L BUN 17 (7.0-18.0) mg/dL Creatinine 0.9 (0.8-1.3) mg/dL Est Cr Clr Drug Dosing 106.91 mL/min Estimated GFR (MDRD) > 60.0 ml/min Glucose 122 H (74-106) mg/dL Calcium 7.3 L (8.5-10.1) mg/dL Total Bilirubin 1.0 (0.2-1.0) mg/dL AST 86 H (15-37) IU/L ALT 60 (14-63) IU/L Alkaline Phosphatase 55 (46-116) U/L Total Protein 6.2 L (6.4-8.2) g/dL Albumin 2.6 L (3.4-5.0) g/dL Globulin 3.6 (2.6-4.0) g/dL Albumin/Globulin Ratio 0.7 L (0.9-1.6) Result Diagrams: 03/27/21 06:05 03/27/21 06:05 Sepsis Event Note - Evaluation Sepsis Screening Result: Possible Sepsis Risk - Focused Exam Vital Signs: Vital Signs Temp Resp BP Pulse Ox 03/27/21 15:00 20 111/72 90 L 03/27/21 14:00 22 H 110/71 89 L 03/27/21 13:00 96.8 F L 18 113/73 89 L 03/27/21 12:00 18 108/77 88 L 03/27/21 11:00 22 H 88 L 03/27/21 10:00 20 132/84 89 L 03/27/21 09:00 42 H 131/71 90 L 03/27/21 08:00 35 H 114/77 92 L 03/27/21 07:00 32 H 141/93 H 90 L 03/27/21 06:00 30 H 124/74 93 L 03/27/21 05:00 33 H 116/70 90 L - Problem List & Annotations (1) COVID-19 SNOMED Code(s): 275547954 Code(s): U07.1 - COVID-19 Status: Acute Current Visit: Yes (2) Obesity SNOMED Code(s): 674966454, 494149125 Code(s): E66.9 - OBESITY, UNSPECIFIED Status: Acute Current Visit: Yes - Problem List Review Problem List Initiated/Reviewed/Updated: Yes - My Orders Last 24 Hours: My Active Orders 03/26/21 17:30 Remdesivir 100 mg Sodium Chloride 0.9% [Normal Saline] 100 ml IV Q24H 03/28/21 05:11 CBC WITH AUTO DIFF [HEME] AM CMP [COMPREHENSIVE METABOLIC PN,CMP] [CHEM] AM - Plan Plan:: 1. Acute respiratory failure secondary to COVID-19 pneumonia -The patient is currently on heated high flow, 60 L, FiO2 of 85, respiratory rate in the 30s. We will continue to wean this patient as appropriate. -We will continue the patient on remdesivir 100 mg IV route -We will continue the patient on dexamethasone 6 mg p.o. once a day. -For cough the patient has been put on Robitussin DM every 4 hours as needed. -For shortness of breath the patient has been placed on duo nebs every 4 hours scheduled. -Continue baricitinib treatment, 4 mg per oral route -Daily CBC/CMP. 2. Obesity with a BMI over 40 -the patient will be counseled on lifestyle modifications including diet and exercise for his obesity <Devin Brown - Last Filed: 03/28/21 15:39> - Patient Data Vitals - Most Recent: Last Vital Signs Temp 35.9 C L 03/28/21 12:00 Pulse 79 03/25/21 19:12 Resp 17 03/28/21 13:00 BP 115/67 03/28/21 13:00 Pulse Ox 87 L 03/28/21 13:00 I&O - Last 24 Hours: Intake & Output 03/28/21 03/28/21 03/28/21 06:59 14:59 22:59 Intake Total 950 Output Total 850 Balance 100 Lab Results Last 24 Hours: Laboratory Results - last 24 hr 03/28/21 03/28/21 03/28/21 Range/Units 06:21 06:21 10:30 WBC 17.15 H (4.0-11.0) K/uL RBC 4.90 (4.50-5.90) M/uL Hgb 15.6 (13.0-17.0) g/dL Hct 46.1 (38.0-50.0) % MCV 94.1 (80.0-98.0) fL MCH 31.8 (27.0-32.0) pg MCHC 33.8 (31.0-37.0) g/dL RDW Std Deviation 45.7 (28.0-62.0) fl RDW Coeff of Kavon 13 (11.0-15.0) % Plt Count 216 (150-400) K/uL MPV 10.40 (7.40-12.00) fL Neut % (Auto) 93.7 H (48.0-80.0) % Lymph % (Auto) 2.9 L (16.0-40.0) % [place] % (Auto) 3.1 (0.0-15.0) % Eos % (Auto) 0.1 (0.0-7.0) % Baso % (Auto) 0.2 (0.0-1.5) % Neut # (Auto) 16.1 H (1.4-5.7) K/uL Lymph # (Auto) 0.5 L (0.6-2.4) K/uL [place] # (Auto) 0.5 (0.0-0.8) K/uL Eos # (Auto) 0.0 (0.0-0.7) K/uL Baso # (Auto) 0.0 (0.0-0.1) K/uL Nucleated RBC % 0.0 /100WBC Nucleated RBCs # 0 K/uL ABG pH 7.51 H (7.35-7.45) ABG pCO2 38 (35-45) mmHG ABG pO2 79 L (80-105) mmHG ABG HCO3 30 H (22-26) mEq/L ABG Total CO2 25.8 (23-27) mmol/L ABG Base Excess 7.0 H (-2.0-3.0) Sodium 139 (136-148) mmol/L Potassium 4.1 (3.5-5.1) mmol/L Chloride 99 (98-107) mmol/L Carbon Dioxide 31.1 (21.0-32.0) mmol/L BUN 14 (7.0-18.0) mg/dL Creatinine 0.8 (0.8-1.3) mg/dL Est Cr Clr Drug Dosing 120.27 mL/min Estimated GFR (MDRD) > 60.0 ml/min Glucose 106 (74-106) mg/dL Calcium 7.3 L (8.5-10.1) mg/dL Total Bilirubin 1.5 H (0.2-1.0) mg/dL AST 98 H (15-37) IU/L ALT 64 H (14-63) IU/L Alkaline Phosphatase 77 (46-116) U/L Total Protein 6.3 L (6.4-8.2) g/dL Albumin 2.5 L (3.4-5.0) g/dL Globulin 3.8 (2.6-4.0) g/dL Albumin/Globulin Ratio 0.7 L (0.9-1.6) Med Orders - Current: Current Medications Albuterol/Ipratropium (Albuterol/Ipratropium 3.0-0.5 Mg/3 Ml Neb Soln) 3 ml NEB Q4HRRT [facility] Last Admin: 03/28/21 13:27 Dose: 3 ml Documented by: Dexamethasone (Dexamethasone 4 Mg/Ml Sdv) 6 mg IVPUSH DAILY [facility] Last Admin: 03/28/21 08:34 Dose: 6 mg Documented by: Enoxaparin Sodium (Enoxaparin 40 Mg/0.4 Ml Syringe) 40 mg SUBCUT Q12HR [facility] Last Admin: 03/28/21 08:34 Dose: 40 mg Documented by: Guaifenesin/Codeine Phosphate (Codeine/Guaifenesin 10-100 Mg/5 Ml Syrup 5 Ml Cup) 5 ml PO Q4H PRN PRN Reason: Cough Last Admin: 03/28/21 14:02 Dose: 5 ml Documented by: Pantoprazole Sodium 40 mg/ (Sodium Chloride) 10 mls @ 300 mls/hr IV Q24H [facility] Last Admin: 03/27/21 16:32 Dose: 300 mls/hr Documented by: Remdesivir 100 mg/ Sodium (Chloride) 100 mls @ 100 mls/hr IV Q24H [facility] Stop: 03/29/21 18:29 Last Admin: 03/27/21 16:32 Dose: 100 mls/hr Documented by: Sodium Chloride (Sodium Chloride 0.65% Nasal [place] 45 Ml Bottle) 0 ml KANDIS Q4H PRN PRN Reason: nasal congestion Last Admin: 03/28/21 01:10 Dose: 1 spray Documented by: Discontinued Medications Albuterol/Ipratropium (Albuterol/Ipratropium 4 Gm Inhalation [place]) 1 gm INH Q4HRRT PRN PRN Reason: Dyspnea Dexamethasone (Dexamethasone 10 Mg/Ml Sdv) 6 mg IVPUSH ONETIME ONE Stop: 03/25/21 12:44 Last Admin: 03/25/21 13:06 Dose: 6 mg Documented by: Dexamethasone (Dexamethasone 4 Mg Tab) 6 mg PO DAILY [facility] Last Admin: 03/26/21 12:42 Dose: 6 mg Documented by: Guaifenesin/Dextromethorphan (Guaifenesin/Dextromethorphan 100-10 Mg/5 Ml Soln 10 Ml Cup) 10 ml PO Q4H PRN PRN Reason: Cough Last Admin: 03/27/21 10:26 Dose: 10 ml Documented by: Guaifenesin/Dextromethorphan (Guaifenesin/Dextromethorphan 100-10 Mg/5 Ml Soln 10 Ml Cup) 10 ml PO Q4H [facility] Guaifenesin/Dextromethorphan (Guaifenesin/Dextromethorphan 100-10 Mg/5 Ml Soln 10 Ml Cup) 10 ml PO Q4H [facility] Last Admin: 03/28/21 05:56 Dose: 10 ml Documented by: Remdesivir 200 mg/ Sodium (Chloride) 250 mls @ 250 mls/hr IV ONETIME ONE Stop: 03/25/21 17:29 Last Admin: 03/25/21 17:19 Dose: 250 mls/hr Documented by: Iopamidol (Iopamidol 755 Mg/Ml 500 Ml Multipack Bottle) 100 ml IVPUSH ONETIME STA Stop: 03/26/21 01:46 Last Admin: 03/26/21 01:46 Dose: 100 ml Documented by: Ketorolac Tromethamine (Ketorolac 15 Mg/Ml Sdv) 15 mg IVPUSH ONETIME ONE Stop: 03/25/21 12:44 Last Admin: 03/25/21 13:06 Dose: 15 mg Documented by: - Patient Data Lab Results Last 24 hrs: Laboratory Results - last 24 hr 03/28/21 03/28/21 03/28/21 Range/Units 06:21 06:21 10:30 WBC 17.15 H (4.0-11.0) K/uL RBC 4.90 (4.50-5.90) M/uL Hgb 15.6 (13.0-17.0) g/dL Hct 46.1 (38.0-50.0) % MCV 94.1 (80.0-98.0) fL MCH 31.8 (27.0-32.0) pg MCHC 33.8 (31.0-37.0) g/dL RDW Std Deviation 45.7 (28.0-62.0) fl RDW Coeff of Kavon 13 (11.0-15.0) % Plt Count 216 (150-400) K/uL MPV 10.40 (7.40-12.00) fL Neut % (Auto) 93.7 H (48.0-80.0) % Lymph % (Auto) 2.9 L (16.0-40.0) % [place] % (Auto) 3.1 (0.0-15.0) % Eos % (Auto) 0.1 (0.0-7.0) % Baso % (Auto) 0.2 (0.0-1.5) % Neut # (Auto) 16.1 H (1.4-5.7) K/uL Lymph # (Auto) 0.5 L (0.6-2.4) K/uL [place] # (Auto) 0.5 (0.0-0.8) K/uL Eos # (Auto) 0.0 (0.0-0.7) K/uL Baso # (Auto) 0.0 (0.0-0.1) K/uL Nucleated RBC % 0.0 /100WBC Nucleated RBCs # 0 K/uL ABG pH 7.51 H (7.35-7.45) ABG pCO2 38 (35-45) mmHG ABG pO2 79 L (80-105) mmHG ABG HCO3 30 H (22-26) mEq/L ABG Total CO2 25.8 (23-27) mmol/L ABG Base Excess 7.0 H (-2.0-3.0) Sodium 139 (136-148) mmol/L Potassium 4.1 (3.5-5.1) mmol/L Chloride 99 (98-107) mmol/L Carbon Dioxide 31.1 (21.0-32.0) mmol/L BUN 14 (7.0-18.0) mg/dL Creatinine 0.8 (0.8-1.3) mg/dL Est Cr Clr Drug Dosing 120.27 mL/min Estimated GFR (MDRD) > 60.0 ml/min Glucose 106 (74-106) mg/dL Calcium 7.3 L (8.5-10.1) mg/dL Total Bilirubin 1.5 H (0.2-1.0) mg/dL AST 98 H (15-37) IU/L ALT 64 H (14-63) IU/L Alkaline Phosphatase 77 (46-116) U/L Total Protein 6.3 L (6.4-8.2) g/dL Albumin 2.5 L (3.4-5.0) g/dL Globulin 3.8 (2.6-4.0) g/dL Albumin/Globulin Ratio 0.7 L (0.9-1.6) Result Diagrams: 03/28/21 06:21 03/28/21 06:21 Sepsis Event Note - Focused Exam Vital Signs: Vital Signs Temp Resp BP Pulse Ox 03/28/21 13:00 17 115/67 87 L 03/28/21 12:00 35.9 C L 20 112/59 L 87 L 03/28/21 11:00 36 H 142/91 H 92 L 03/28/21 10:00 40 H 127/82 88 L 03/28/21 09:00 41 H 118/73 93 L 03/28/21 08:00 36.3 C 39 H 125/72 90 L 03/28/21 07:00 31 H 125/72 90 L 03/28/21 06:00 34 H 136/81 92 L 03/28/21 05:00 32 H 129/75 94 L 03/28/21 04:00 37.0 C 30 H 153/83 H 91 L - Problem List & Annotations (1) Hypoxia SNOMED Code(s): 515988234 Code(s): R09.02 - HYPOXEMIA Status: Acute Current Visit: Yes (2) Obesity SNOMED Code(s): 897250437, 826440400 Code(s): E66.9 - OBESITY, UNSPECIFIED Status: Acute Current Visit: Yes (3) COVID-19 SNOMED Code(s): 182502959 Code(s): U07.1 - COVID-19 Status: Acute Current Visit: Yes - My Orders Last 24 Hours: My Active Orders 03/28/21 01:03 Sodium Chloride 0.65% [[place] Nasal [place]] See Dose Instructions [facility]IS Q4H PRN - Plan Plan:: I have seen and evaluated the patient and agree with the residents note unless specified in my note
[2021-03-28] MEDS ORDERED: Sodium Chloride 0.65% Nasal Spray 45 ML Bottle NAS PRN (01:03)
[2021-03-28] MEDS: Albuterol/Ipratropium 3.0-0.5 MG/3 ML Neb Soln NEB SCH ×6 (01:58→21:34)
[2021-03-28] MEDS: guaiFENesin/Dextromethorphan 100-10 MG/5 ML Soln 10 ML Cup PO SCH ×2 (01:58→05:56)
[2021-03-28 07:41] LABS: BLOOD UREA NITROGEN,BUN 14 mg/dL (7.0-18.0); CARBON DIOXIDE,CO2 31.1 mmol/L (21.0-32.0); CHLORIDE,CL 99 mmol/L (98-107); GLUCOSE RANDOM 106 mg/dL (74-106); POTASSIUM,K 4.1 mmol/L (3.5-5.1); SODIUM,NA 139 mmol/L (136-148)
[2021-03-28] MEDS: Dexamethasone 4 MG/ML SDV IVPUSH SCH (08:34)
[2021-03-28] MEDS: Enoxaparin 40 MG/0.4 ML Syringe SUBCUT SCH ×2 (08:34→21:34)
[2021-03-28] MEDS: Codeine/guaiFENesin 10-100 MG/5 ML Syrup 5 ML Cup PO PRN ×4 (09:57→22:40)
--- NOTE | 2021-03-28 12:14 | PCM.PN ---
- General Info Date of Service: 03/28/21 Subjective Update: Patient states he feels fine this morning. Denies chest pain, shortness of breath. Patient states his biggest concern is coughing spells which make it difficult for him to breathe. - Review of Systems General: Denies: Fever, Chills Pulmonary: Reports: Shortness of Breath, Cough Cardiovascular: Reports: Dyspnea on Exertion. Denies: Chest Pain, Edema Gastrointestinal: Denies: Abdominal Pain, Diarrhea, Nausea, Vomiting Neurological: Denies: Confusion, Dizziness, Headache Psychiatric: Denies: Confusion - Patient Data Vitals - Most Recent: Last Vital Signs Temp 97.3 F 03/28/21 08:00 Pulse 79 03/25/21 19:12 Resp 36 H 03/28/21 11:00 BP 142/91 H 03/28/21 11:00 Pulse Ox 92 L 03/28/21 11:00 Weight - Most Recent: 313 lb 13.777 oz I&O - Last 24 Hours: Intake & Output 03/27/21 03/28/21 03/28/21 22:59 06:59 14:59 Intake Total 1110 950 Output Total 900 850 Balance 210 100 Lab Results Last 24 Hours: Laboratory Results - last 24 hr 03/28/21 03/28/21 03/28/21 Range/Units 06:21 06:21 10:30 WBC 17.15 H (4.0-11.0) K/uL RBC 4.90 (4.50-5.90) M/uL Hgb 15.6 (13.0-17.0) g/dL Hct 46.1 (38.0-50.0) % MCV 94.1 (80.0-98.0) fL MCH 31.8 (27.0-32.0) pg MCHC 33.8 (31.0-37.0) g/dL RDW Std Deviation 45.7 (28.0-62.0) fl RDW Coeff of Kavon 13 (11.0-15.0) % Plt Count 216 (150-400) K/uL MPV 10.40 (7.40-12.00) fL Neut % (Auto) 93.7 H (48.0-80.0) % Lymph % (Auto) 2.9 L (16.0-40.0) % Preston % (Auto) 3.1 (0.0-15.0) % Eos % (Auto) 0.1 (0.0-7.0) % Baso % (Auto) 0.2 (0.0-1.5) % Neut # (Auto) 16.1 H (1.4-5.7) K/uL Lymph # (Auto) 0.5 L (0.6-2.4) K/uL Preston # (Auto) 0.5 (0.0-0.8) K/uL Eos # (Auto) 0.0 (0.0-0.7) K/uL Baso # (Auto) 0.0 (0.0-0.1) K/uL Nucleated RBC % 0.0 /100WBC Nucleated RBCs # 0 K/uL ABG pH 7.51 H (7.35-7.45) ABG pCO2 38 (35-45) mmHG ABG pO2 79 L (80-105) mmHG ABG HCO3 30 H (22-26) mEq/L ABG Total CO2 25.8 (23-27) mmol/L ABG Base Excess 7.0 H (-2.0-3.0) Sodium 139 (136-148) mmol/L Potassium 4.1 (3.5-5.1) mmol/L Chloride 99 (98-107) mmol/L Carbon Dioxide 31.1 (21.0-32.0) mmol/L BUN 14 (7.0-18.0) mg/dL Creatinine 0.8 (0.8-1.3) mg/dL Est Cr Clr Drug Dosing 120.27 mL/min Estimated GFR (MDRD) > 60.0 ml/min Glucose 106 (74-106) mg/dL Calcium 7.3 L (8.5-10.1) mg/dL Total Bilirubin 1.5 H (0.2-1.0) mg/dL AST 98 H (15-37) IU/L ALT 64 H (14-63) IU/L Alkaline Phosphatase 77 (46-116) U/L Total Protein 6.3 L (6.4-8.2) g/dL Albumin 2.5 L (3.4-5.0) g/dL Globulin 3.8 (2.6-4.0) g/dL Albumin/Globulin Ratio 0.7 L (0.9-1.6) Med Orders - Current: Current Medications Albuterol/Ipratropium (Albuterol/Ipratropium 3.0-0.5 Mg/3 Ml Neb Soln) 3 ml NEB Q4HRRT [facility] Last Admin: 03/28/21 09:15 Dose: 3 ml Documented by: Dexamethasone (Dexamethasone 4 Mg/Ml Sdv) 6 mg IVPUSH DAILY [facility] Last Admin: 03/28/21 08:34 Dose: 6 mg Documented by: Enoxaparin Sodium (Enoxaparin 40 Mg/0.4 Ml Syringe) 40 mg SUBCUT Q12HR [facility] Last Admin: 03/28/21 08:34 Dose: 40 mg Documented by: Guaifenesin/Codeine Phosphate (Codeine/Guaifenesin 10-100 Mg/5 Ml Syrup 5 Ml Cup) 5 ml PO Q4H PRN PRN Reason: Cough Last Admin: 03/28/21 09:57 Dose: 5 ml Documented by: Pantoprazole Sodium 40 mg/ (Sodium Chloride) 10 mls @ 300 mls/hr IV Q24H [facility] Last Admin: 03/27/21 16:32 Dose: 300 mls/hr Documented by: Remdesivir 100 mg/ Sodium (Chloride) 100 mls @ 100 mls/hr IV Q24H [facility] Stop: 03/29/21 18:29 Last Admin: 03/27/21 16:32 Dose: 100 mls/hr Documented by: Sodium Chloride (Sodium Chloride 0.65% Nasal [place] 45 Ml Bottle) 0 ml KADNIS Q4H PRN PRN Reason: nasal congestion Last Admin: 03/28/21 01:10 Dose: 1 spray Documented by: Discontinued Medications Albuterol/Ipratropium (Albuterol/Ipratropium 4 Gm Inhalation [place]) 1 gm INH Q4HRRT PRN PRN Reason: Dyspnea Dexamethasone (Dexamethasone 10 Mg/Ml Sdv) 6 mg IVPUSH ONETIME ONE Stop: 03/25/21 12:44 Last Admin: 03/25/21 13:06 Dose: 6 mg Documented by: Dexamethasone (Dexamethasone 4 Mg Tab) 6 mg PO DAILY [facility] Last Admin: 03/26/21 12:42 Dose: 6 mg Documented by: Guaifenesin/Dextromethorphan (Guaifenesin/Dextromethorphan 100-10 Mg/5 Ml Soln 10 Ml Cup) 10 ml PO Q4H PRN PRN Reason: Cough Last Admin: 03/27/21 10:26 Dose: 10 ml Documented by: Guaifenesin/Dextromethorphan (Guaifenesin/Dextromethorphan 100-10 Mg/5 Ml Soln 10 Ml Cup) 10 ml PO Q4H [facility] Guaifenesin/Dextromethorphan (Guaifenesin/Dextromethorphan 100-10 Mg/5 Ml Soln 10 Ml Cup) 10 ml PO Q4H [facility] Last Admin: 03/28/21 05:56 Dose: 10 ml Documented by: Remdesivir 200 mg/ Sodium (Chloride) 250 mls @ 250 mls/hr IV ONETIME ONE Stop: 03/25/21 17:29 Last Admin: 03/25/21 17:19 Dose: 250 mls/hr Documented by: Iopamidol (Iopamidol 755 Mg/Ml 500 Ml Multipack Bottle) 100 ml IVPUSH ONETIME STA Stop: 03/26/21 01:46 Last Admin: 03/26/21 01:46 Dose: 100 ml Documented by: Ketorolac Tromethamine (Ketorolac 15 Mg/Ml Sdv) 15 mg IVPUSH ONETIME ONE Stop: 03/25/21 12:44 Last Admin: 03/25/21 13:06 Dose: 15 mg Documented by: - Exam Quality Assessment: Supplemental Oxygen General: Alert, Oriented Lungs: Clear to Auscultation, Normal Respiratory Effort (ON CPAP) Cardiovascular: Regular Rate, Regular Rhythm GI/Abdominal Exam: Soft, Non-Tender, No Distention (OBESE) Extremities: No Pedal Edema Psy/Mental Status: Alert - Patient Data Lab Results Last 24 hrs: Laboratory Results - last 24 hr 03/28/21 03/28/21 03/28/21 Range/Units 06:21 06:21 10:30 WBC 17.15 H (4.0-11.0) K/uL RBC 4.90 (4.50-5.90) M/uL Hgb 15.6 (13.0-17.0) g/dL Hct 46.1 (38.0-50.0) % MCV 94.1 (80.0-98.0) fL MCH 31.8 (27.0-32.0) pg MCHC 33.8 (31.0-37.0) g/dL RDW Std Deviation 45.7 (28.0-62.0) fl RDW Coeff of Kavon 13 (11.0-15.0) % Plt Count 216 (150-400) K/uL MPV 10.40 (7.40-12.00) fL Neut % (Auto) 93.7 H (48.0-80.0) % Lymph % (Auto) 2.9 L (16.0-40.0) % Preston % (Auto) 3.1 (0.0-15.0) % Eos % (Auto) 0.1 (0.0-7.0) % Baso % (Auto) 0.2 (0.0-1.5) % Neut # (Auto) 16.1 H (1.4-5.7) K/uL Lymph # (Auto) 0.5 L (0.6-2.4) K/uL Preston # (Auto) 0.5 (0.0-0.8) K/uL Eos # (Auto) 0.0 (0.0-0.7) K/uL Baso # (Auto) 0.0 (0.0-0.1) K/uL Nucleated RBC % 0.0 /100WBC Nucleated RBCs # 0 K/uL ABG pH 7.51 H (7.35-7.45) ABG pCO2 38 (35-45) mmHG ABG pO2 79 L (80-105) mmHG ABG HCO3 30 H (22-26) mEq/L ABG Total CO2 25.8 (23-27) mmol/L ABG Base Excess 7.0 H (-2.0-3.0) Sodium 139 (136-148) mmol/L Potassium 4.1 (3.5-5.1) mmol/L Chloride 99 (98-107) mmol/L Carbon Dioxide 31.1 (21.0-32.0) mmol/L BUN 14 (7.0-18.0) mg/dL Creatinine 0.8 (0.8-1.3) mg/dL Est Cr Clr Drug Dosing 120.27 mL/min Estimated GFR (MDRD) > 60.0 ml/min Glucose 106 (74-106) mg/dL Calcium 7.3 L (8.5-10.1) mg/dL Total Bilirubin 1.5 H (0.2-1.0) mg/dL AST 98 H (15-37) IU/L ALT 64 H (14-63) IU/L Alkaline Phosphatase 77 (46-116) U/L Total Protein 6.3 L (6.4-8.2) g/dL Albumin 2.5 L (3.4-5.0) g/dL Globulin 3.8 (2.6-4.0) g/dL Albumin/Globulin Ratio 0.7 L (0.9-1.6) Result Diagrams: 03/28/21 06:21 03/28/21 06:21 Sepsis Event Note - Evaluation Sepsis Screening Result: Severe Sepsis Risk - Focused Exam Vital Signs: Vital Signs Temp Resp BP Pulse Ox 03/28/21 11:00 36 H 142/91 H 92 L 03/28/21 10:00 40 H 127/82 88 L 03/28/21 09:00 41 H 118/73 93 L 03/28/21 08:00 97.3 F 39 H 125/72 90 L 03/28/21 07:00 31 H 125/72 90 L 03/28/21 06:00 34 H 136/81 92 L 03/28/21 05:00 32 H 129/75 94 L 03/28/21 04:00 98.6 F 30 H 153/83 H 91 L 03/28/21 03:00 32 H 133/67 92 L 03/28/21 02:00 28 H 145/70 H 93 L 03/28/21 01:00 27 H 154/96 H 94 L - Problem List & Annotations (1) COVID-19 SNOMED Code(s): 397578036 Code(s): U07.1 - COVID-19 Status: Acute Current Visit: Yes (2) Obesity SNOMED Code(s): 616264975, 652898492 Code(s): E66.9 - OBESITY, UNSPECIFIED Status: Acute Current Visit: Yes - Problem List Review Problem List Initiated/Reviewed/Updated: Yes - My Orders Last 24 Hours: My Active Orders 03/28/21 10:00 Codeine/guaiFENesin [Robitussin AC] 5 ml PO Q4H PRN - Plan Plan:: Acute respiratory failure secondary to COVID-19 pneumonia The patient is currently on CPAP, flow 8 /FiO2 85. ABG obtained due to increase FiO2 with results of pH 7.51, CO2 38, PO2 79. We will continue oxygen support and wean as tolerated. Remdesivir 100 mg DAILY, dexamethasone 6 mg DAILY, Lovenox 40mg Q12hr, Robitussin-AC for cough Q4HR PRN, Duo nebs Q4hr scheduled. Continue baricitinib 4mg daily
--- NOTE | 2021-03-28 15:07 | CR ---
Indication: Shortness of breath. Technique: AP portable view of the chest. Comparison: March 25, 2021. Findings: The heart is normal in size. Patchy increased opacities are identified throughout both lungs, stable. No focal infiltrate, pleural effusion, or pneumothorax is identified. Impression: Stable chest x-ray Dictated by Tina Doty MD @ 03/28/2021 3:05:49 PM (Electronically Signed)
[2021-03-28] MEDS: REMDESIVIR 100 MG in Sodium Chloride 0.9% 100 ML IV SCH (17:01)
[2021-03-28] MEDS: Pantoprazole 40 MG in Sodium Chloride 0.9% 10 ML IV SCH (17:01)
[2021-03-28] MEDS ORDERED: Morphine 2 MG/ML SYRINGE IVPUSH ONE (23:24)
[2021-03-28] MEDS ORDERED: Furosemide 40 MG/4 ML VIAL IVPUSH ONE (23:29)
--- NOTE | 2021-03-28 23:33 | PN ---
THC Physician - Brief Progress [id number]/02/2021 23:31[facility] [place] - JESSICA (UMAIR) - NAOMIE ALBARRAN COVID+Date of Service 03/28/2021 23:31HPI/ Events of Note eICU on-callReceived a call with the patient is on NIV and is anxious.Chest x-ray revi ewedBP [id number] 91%RR 35Plan:-Morphine 2 mg IV-Precedex drip -Lasix 40 mg IVInterventions Major -Respiratory failure - evaluation and management
[2021-03-29] MEDS: Albuterol/Ipratropium 3.0-0.5 MG/3 ML Neb Soln NEB SCH ×6 (01:27→21:53)
[2021-03-29 07:24] LABS: BLOOD UREA NITROGEN,BUN 14 mg/dL (7.0-18.0); CARBON DIOXIDE,CO2 32.7 mmol/L (21.0-32.0); CHLORIDE,CL 99 mmol/L (98-107); GLUCOSE RANDOM 124 mg/dL (74-106); POTASSIUM,K 4.3 mmol/L (3.5-5.1); SODIUM,NA 139 mmol/L (136-148)
[2021-03-29] MEDS: Dexamethasone 4 MG/ML SDV IVPUSH SCH (08:08)
[2021-03-29] MEDS: Enoxaparin 40 MG/0.4 ML Syringe SUBCUT SCH ×2 (08:11→21:37)
[2021-03-29] MEDS: Codeine/guaiFENesin 10-100 MG/5 ML Syrup 5 ML Cup PO PRN ×2 (08:13→12:46)
--- NOTE | 2021-03-29 14:00 | PCM.PN ---
- General Info Date of Service: 03/29/21 Subjective Update: The patient is a 50-year-old male, on day 4 of service, with a significant past medical history of obesity with a BMI over 41, who was admitted to the intensive care unit for acute respiratory failure secondary to COVID-19 pneumonia. He is currently on CPAP, with a flow rate of 8, FiO2 of 90, respiratory rate in the 30s, and saturating 89 to 90%. He is currently on a Precedex drip 400 mcg's for anxiety. Upon interview today the patient admits that last night he was extremely anxious and this is due to him feeling claustrophobic when in enclosed spaces. He states this is something that he has been suffering from for years and last night he could not take it anymore. After receiving Precedex he feels much more calm. Upon further interview, he admits that his cough is still there which produces clear sputum. He is less short of breath and admits different therapies in hospital are helping him. He was counseled on diet and exercise upon discharge from the hospital and admits it is something that he will be compliant with. He has no other complaints at this time. - Review of Systems General: Reports: Fatigue. Denies: Fever, Weakness, Chills HEENT: Denies: Dysphasia, Headaches, Sore Throat Pulmonary: Reports: Shortness of Breath, Cough Cardiovascular: Denies: Chest Pain, Palpitations, Dyspnea on Exertion, Orthopnea Gastrointestinal: Denies: Abdominal Pain, Nausea, Vomiting Genitourinary: Denies: Dysuria - Patient Data Vitals - Most Recent: Last Vital Signs Temp 96.8 F L 03/29/21 12:00 Pulse 79 03/25/21 19:12 Resp 26 H 03/29/21 13:00 BP 124/85 03/29/21 13:00 Pulse Ox 91 L 03/29/21 13:00 Weight - Most Recent: 313 lb 13.777 oz I&O - Last 24 Hours: Intake & Output 03/28/21 03/29/21 03/29/21 22:59 06:59 14:59 Intake Total 960 700 Output Total 1200 1850 Balance -240 -1150 Lab Results Last 24 Hours: Laboratory Results - last 24 hr 03/29/21 03/29/21 03/29/21 Range/Units 05:15 06:32 06:32 WBC 16.80 H (4.0-11.0) K/uL RBC 4.84 (4.50-5.90) M/uL Hgb 15.4 (13.0-17.0) g/dL Hct 45.6 (38.0-50.0) % MCV 94.2 (80.0-98.0) fL MCH 31.8 (27.0-32.0) pg MCHC 33.8 (31.0-37.0) g/dL RDW Std Deviation 45.6 (28.0-62.0) fl RDW Coeff of Kavon 13 (11.0-15.0) % Plt Count 172 (150-400) K/uL MPV 10.10 (7.40-12.00) fL Add Manual Diff YES Neutrophils % (Manual) 88 H (48.0-80.0) % Band Neutrophils % 4 % Lymphocytes % (Manual) 3 L (16.0-40.0) % Monocytes % (Manual) 5 (0.0-15.0) % Nucleated RBC % 0.0 /100WBC Absolute Seg Neuts 14.8 H (1.4-5.7) Band Neutrophils # 0.7 Lymphocytes # (Manual) 0.5 L (0.6-2.4) Monocytes # (Manual) 0.8 (0.0-0.8) Nucleated RBCs # 0 K/uL ABG pH 7.51 H (7.35-7.45) ABG pCO2 43 (35-45) mmHG ABG pO2 65 L (80-105) mmHG ABG HCO3 34 H (22-26) mEq/L ABG Total CO2 28.9 H (23-27) mmol/L ABG Base Excess 9.5 H (-2.0-3.0) Sodium 139 (136-148) mmol/L Potassium 4.3 (3.5-5.1) mmol/L Chloride 99 (98-107) mmol/L Carbon Dioxide 32.7 H (21.0-32.0) mmol/L BUN 14 (7.0-18.0) mg/dL Creatinine 1.0 (0.8-1.3) mg/dL Est Cr Clr Drug Dosing 96.22 mL/min Estimated GFR (MDRD) > 60.0 ml/min Glucose 124 H (74-106) mg/dL Calcium 7.1 L (8.5-10.1) mg/dL Magnesium 2.7 H (1.8-2.4) mg/dL Total Bilirubin 1.6 H (0.2-1.0) mg/dL AST 90 H (15-37) IU/L ALT 65 H (14-63) IU/L Alkaline Phosphatase 85 (46-116) U/L Total Protein 6.4 (6.4-8.2) g/dL Albumin 2.5 L (3.4-5.0) g/dL Globulin 3.9 (2.6-4.0) g/dL Albumin/Globulin Ratio 0.6 L (0.9-1.6) Med Orders - Current: Current Medications Albuterol/Ipratropium (Albuterol/Ipratropium 3.0-0.5 Mg/3 Ml Neb Soln) 3 ml NEB Q4HRRT [facility] Last Admin: 03/29/21 09:42 Dose: 3 ml Documented by: Dexamethasone (Dexamethasone 4 Mg/Ml Sdv) 6 mg IVPUSH DAILY [facility] Last Admin: 03/29/21 08:08 Dose: 6 mg Documented by: Enoxaparin Sodium (Enoxaparin 40 Mg/0.4 Ml Syringe) 40 mg SUBCUT Q12HR [facility] Last Admin: 03/29/21 08:11 Dose: 40 mg Documented by: Guaifenesin/Codeine Phosphate (Codeine/Guaifenesin 10-100 Mg/5 Ml Syrup 5 Ml Cup) 5 ml PO Q4H PRN PRN Reason: Cough Last Admin: 03/29/21 12:46 Dose: 5 ml Documented by: Pantoprazole Sodium 40 mg/ (Sodium Chloride) 10 mls @ 300 mls/hr IV Q24H [facility] Last Admin: 03/28/21 17:01 Dose: 300 mls/hr Documented by: Remdesivir 100 mg/ Sodium (Chloride) 100 mls @ 100 mls/hr IV Q24H [facility] Stop: 03/29/21 18:29 Last Admin: 03/28/21 17:01 Dose: 100 mls/hr Documented by: Dexmedetomidine/Sodium (Chloride 400 mcg/ Premix) 100 mls @ 7.118 mls/hr IV .Q14H3M [facility]; Protocol Last Titration: 03/29/21 05:29 Dose: 0 mcg/kg/hr, 0 mls/hr Documented by: Sodium Chloride (Sodium Chloride 0.65% Nasal [place] 45 Ml Bottle) 0 ml KANDIS Q4H PRN PRN Reason: nasal congestion Last Admin: 03/28/21 01:10 Dose: 1 spray Documented by: Discontinued Medications Albuterol/Ipratropium (Albuterol/Ipratropium 4 Gm Inhalation [place]) 1 gm INH Q4HRRT PRN PRN Reason: Dyspnea Dexamethasone (Dexamethasone 10 Mg/Ml Sdv) 6 mg IVPUSH ONETIME ONE Stop: 03/25/21 12:44 Last Admin: 03/25/21 13:06 Dose: 6 mg Documented by: Dexamethasone (Dexamethasone 4 Mg Tab) 6 mg PO DAILY [facility] Last Admin: 03/26/21 12:42 Dose: 6 mg Documented by: Furosemide (Furosemide 40 Mg/4 Ml Vial) 40 mg IVPUSH NOW ONE Stop: 03/28/21 23:30 Last Admin: 03/28/21 23:46 Dose: 40 mg Documented by: Guaifenesin/Dextromethorphan (Guaifenesin/Dextromethorphan 100-10 Mg/5 Ml Soln 10 Ml Cup) 10 ml PO Q4H PRN PRN Reason: Cough Last Admin: 03/27/21 10:26 Dose: 10 ml Documented by: Guaifenesin/Dextromethorphan (Guaifenesin/Dextromethorphan 100-10 Mg/5 Ml Soln 10 Ml Cup) 10 ml PO Q4H [facility] Guaifenesin/Dextromethorphan (Guaifenesin/Dextromethorphan 100-10 Mg/5 Ml Soln 10 Ml Cup) 10 ml PO Q4H [facility] Last Admin: 03/28/21 05:56 Dose: 10 ml Documented by: Remdesivir 200 mg/ Sodium (Chloride) 250 mls @ 250 mls/hr IV ONETIME ONE Stop: 03/25/21 17:29 Last Admin: 03/25/21 17:19 Dose: 250 mls/hr Documented by: Iopamidol (Iopamidol 755 Mg/Ml 500 Ml Multipack Bottle) 100 ml IVPUSH ONETIME STA Stop: 03/26/21 01:46 Last Admin: 03/26/21 01:46 Dose: 100 ml Documented by: Ketorolac Tromethamine (Ketorolac 15 Mg/Ml Sdv) 15 mg IVPUSH ONETIME ONE Stop: 03/25/21 12:44 Last Admin: 03/25/21 13:06 Dose: 15 mg Documented by: Morphine Sulfate (Morphine 2 Mg/Ml Syringe) 2 mg IVPUSH ONETIME ONE Stop: 03/28/21 23:25 Last Admin: 03/28/21 23:45 Dose: 2 mg Documented by: - Exam Urinary Catheter Total Time: 0Days 14Hours General: Alert, Oriented, Cooperative HEENT: Other (Dry mucous membranes) Neck: Trachea Midline Lungs: Other (CPAP in place difficult to assess breath sounds) Cardiovascular: Regular Rate, Regular Rhythm, No Murmurs GI/Abdominal Exam: Normal Bowel Sounds, Soft, Non-Tender (Male) Exam: Other (Cuevas in place) Extremities: Other (SCDs in place bilaterally) - Patient Data Lab Results Last 24 hrs: Laboratory Results - last 24 hr 03/29/21 03/29/21 03/29/21 Range/Units 05:15 06:32 06:32 WBC 16.80 H (4.0-11.0) K/uL RBC 4.84 (4.50-5.90) M/uL Hgb 15.4 (13.0-17.0) g/dL Hct 45.6 (38.0-50.0) % MCV 94.2 (80.0-98.0) fL MCH 31.8 (27.0-32.0) pg MCHC 33.8 (31.0-37.0) g/dL RDW Std Deviation 45.6 (28.0-62.0) fl RDW Coeff of Kavon 13 (11.0-15.0) % Plt Count 172 (150-400) K/uL MPV 10.10 (7.40-12.00) fL Add Manual Diff YES Neutrophils % (Manual) 88 H (48.0-80.0) % Band Neutrophils % 4 % Lymphocytes % (Manual) 3 L (16.0-40.0) % Monocytes % (Manual) 5 (0.0-15.0) % Nucleated RBC % 0.0 /100WBC Absolute Seg Neuts 14.8 H (1.4-5.7) Band Neutrophils # 0.7 Lymphocytes # (Manual) 0.5 L (0.6-2.4) Monocytes # (Manual) 0.8 (0.0-0.8) Nucleated RBCs # 0 K/uL ABG pH 7.51 H (7.35-7.45) ABG pCO2 43 (35-45) mmHG ABG pO2 65 L (80-105) mmHG ABG HCO3 34 H (22-26) mEq/L ABG Total CO2 28.9 H (23-27) mmol/L ABG Base Excess 9.5 H (-2.0-3.0) Sodium 139 (136-148) mmol/L Potassium 4.3 (3.5-5.1) mmol/L Chloride 99 (98-107) mmol/L Carbon Dioxide 32.7 H (21.0-32.0) mmol/L BUN 14 (7.0-18.0) mg/dL Creatinine 1.0 (0.8-1.3) mg/dL Est Cr Clr Drug Dosing 96.22 mL/min Estimated GFR (MDRD) > 60.0 ml/min Glucose 124 H (74-106) mg/dL Calcium 7.1 L (8.5-10.1) mg/dL Magnesium 2.7 H (1.8-2.4) mg/dL Total Bilirubin 1.6 H (0.2-1.0) mg/dL AST 90 H (15-37) IU/L ALT 65 H (14-63) IU/L Alkaline Phosphatase 85 (46-116) U/L Total Protein 6.4 (6.4-8.2) g/dL Albumin 2.5 L (3.4-5.0) g/dL Globulin 3.9 (2.6-4.0) g/dL Albumin/Globulin Ratio 0.6 L (0.9-1.6) Result Diagrams: 03/29/21 06:32 03/29/21 06:32 Sepsis Event Note - Evaluation Sepsis Screening Result: Severe Sepsis Risk - Focused Exam Vital Signs: Vital Signs Temp Resp BP Pulse Ox 03/29/21 13:00 26 H 124/85 91 L 03/29/21 12:00 96.8 F L 36 H 131/92 H 89 L 03/29/21 11:00 30 H 142/88 H 91 L 03/29/21 10:00 125/77 90 L 10/03/21 09:00 24 H 120/80 91 L 03/29/21 08:00 96.7 F L 40 H 128/79 88 L 03/29/21 07:00 25 H 128/81 89 L 03/29/21 06:00 30 H 115/75 92 L 03/29/21 05:00 36 H 105/59 L 89 L 03/29/21 04:00 97.2 F 36 H 105/61 88 L 03/29/21 03:00 37 H 141/74 H 88 L 03/29/21 02:00 34 H 134/81 87 L - Problem List & Annotations (1) COVID-19 SNOMED Code(s): 706747902 Code(s): U07.1 - COVID-19 Status: Acute Current Visit: Yes (2) Obesity SNOMED Code(s): 501367115, 748231321 Code(s): E66.9 - OBESITY, UNSPECIFIED Status: Acute Current Visit: Yes (3) Anxiety about health SNOMED Code(s): 133807278 Code(s): F41.8 - OTHER SPECIFIED ANXIETY DISORDERS Status: Acute Current Visit: Yes - Problem List Review Problem List Initiated/Reviewed/Updated: Yes - My Orders Last 24 Hours: My Active Orders 03/30/21 05:11 CBC WITH AUTO DIFF [HEME] AM CMP [COMPREHENSIVE METABOLIC PN,CMP] [CHEM] AM 03/31/21 05:11 CBC WITH AUTO DIFF [HEME] AM CMP [COMPREHENSIVE METABOLIC PN,CMP] [CHEM] AM 04/01/21 05:11 CBC WITH AUTO DIFF [HEME] AM CMP [COMPREHENSIVE METABOLIC PN,CMP] [CHEM] AM 04/02/21 05:11 CBC WITH AUTO DIFF [HEME] AM CMP [COMPREHENSIVE METABOLIC PN,CMP] [CHEM] AM 04/03/21 05:11 CBC WITH AUTO DIFF [HEME] AM CMP [COMPREHENSIVE METABOLIC PN,CMP] [CHEM] AM - Assessment Assessment:: 1. Acute respiratory failure secondary to COVID-19 pneumonia -The patient is currently on CPAP, flow rate of 8, FiO2 of 90, respiratory rate in the 30s, saturating 89-90%. We will continue to wean this patient as appropriate. -We will continue the patient on remdesivir 100 mg IV route -We will continue the patient on dexamethasone 6 mg p.o. once a day. -For cough, the patient has been put on Robitussin DM every 4 hours as needed. -For shortness of breath, the patient has been placed on duo nebs every 4 hours scheduled. -Continue baricitinib treatment, 4 mg per oral route -Daily CBC/CMP. 2. Anxiety/Agitation -The patient is on the anxiolytic Precedex 3. Obesity with a BMI over 40 -The patient has been counseled on lifestyle modifications including diet and exercise
[2021-03-29] MEDS: REMDESIVIR 100 MG in Sodium Chloride 0.9% 100 ML IV SCH (17:18)
[2021-03-29] MEDS: Pantoprazole 40 MG in Sodium Chloride 0.9% 10 ML IV SCH (17:18)
--- NOTE | 2021-03-29 18:45 | PN ---
THC Physician - Brief Progress [id number]/03/2021 18:43[facility] [place]onte Rodriguez, [place] - JESSICA (UMAIR) - JESSICA ICUTENA, NAOMIE Toussaint, COVID+Date of Service 03/29/2021 18:43HPI/ Events of Note eICU Brief Progress NoteContacted by bedside resident physician to discuss case and re commendations moving forward. Briefly Mr. Valera is an unfortunate 50M admitted for COVID related resp iratory failure managed with NIV. Per report on clinical exam he appears comfortable - on my review h e has a minute ventilation of 30-40L/min, with TV in the 1000s - despite this on his last ABG PCO3 is 43, suggesting a significant component of deadspace. Despite an FiO2 of 100% and CPAP of 8 (per repo rt when they try higher pressures he desaturates further), patient is satting in the 80s. Per report he has been on NIV for a few days now.I believe that patient is beginning to demonstrate failure of N IV therapy (given the above), and should be considered for intubation. Elements to weigh in on this d ecision are availability of an available facility to accept transfer, and availability of local resou rces in case patient cannot be transferred to higher level of care in a timely fashion (ie RT, pharma cist, RN, etc) given it is a Tuesday night. If there is no facility that is able to accept transfer (a nm has a bed available), and there are limitations to the resources available locally, one reasonable approach might be to continue NIV therapy until tomorrow morning when there are more resources avail able to intubate and sedate patient safely (while maintaining a close watch on patient's respiratory status, with low threshold to intubate should he deteriorate rapidly).Defer the ultimate decision to intubate to bedside assessment of the above, eICU will continue to follow and assist with whatever de cision primary service makes.Interventions Major-Respiratory failure - evaluation and managementElect ronically Signed by: GAETANO ANTHONY) on 03/29/2021 18:44
--- NOTE | 2021-03-29 19:36 | PCM.SN.2 ---
- Free Text/Narrative Note: The patient's clinical status is deteriorating with respect to his oxygen demand. I was called to the intensive care unit nurses station around 6 PM on 03/29/2021 by nurse Kwong in regards to this patient. I saw the patient, and even though he denies shortness of breath, worsening cough, and displays no signs of skin discoloration, he is requiring more oxygen. He is currently on CPAP, with a PEEP of 8, and FiO2 of 95, respiratory rate in the 30s, and saturating in the mid 80s. This patient may require intubation if he does not improve overnight. I had a chance to speak with Dr. Clark from [facility] to discuss this patient's current oxygen levels. He suggested that there is no clear-cut answer on when to intubate the patient especially in this case. He suggested possible transfer to another facility and to check if beds are available. He also suggested if that is not plausible, to get respiratory therapy, pharmacy, nurses, physicians, other staff, and anesthesiology on board in regards to the potential for intubating this patient if necessary. For now, the decision has been made to keep this patient on CPAP and hope that his oxygenation improves by the coiled tubing operator. If not anesthesiology must be on board in order to help with the intubation procedure. I came into contact with anesthesiology on-call, Dr. Evgeny Corona, at the hospital here. We had a conversation about this patient's potential for intubation, and that he may be needed if we have to intubate the patient in the middle of the night. The anesthesiologist asked for a call ahead of time so preparations could be made for such a procedure to happen. Both myself and Dr. Med Sosa thank the physicians and staff involved in this patient's care. Time Documentation
[2021-03-30] MEDS: Codeine/guaiFENesin 10-100 MG/5 ML Syrup 5 ML Cup PO PRN ×3 (00:09→22:05)
[2021-03-30] MEDS: Albuterol/Ipratropium 3.0-0.5 MG/3 ML Neb Soln NEB SCH ×6 (01:55→21:33)
[2021-03-30 06:58] LABS: BLOOD UREA NITROGEN,BUN 15 mg/dL (7.0-18.0); CARBON DIOXIDE,CO2 33.2 mmol/L (21.0-32.0); CHLORIDE,CL 101 mmol/L (98-107); GLUCOSE RANDOM 102 mg/dL (74-106); POTASSIUM,K 4.7 mmol/L (3.5-5.1); SODIUM,NA 142 mmol/L (136-148)
[2021-03-30] MEDS: Enoxaparin 40 MG/0.4 ML Syringe SUBCUT SCH ×2 (08:31→20:21)
[2021-03-30] MEDS: Dexamethasone 4 MG/ML SDV IVPUSH SCH (08:31)
--- NOTE | 2021-03-30 10:08 | PN ---
THC Physician - Brief Progress [id number]/04/2021 10:05[facility] [place], [place] - JESSICA (UMAIR) - JESSICA ICUNAOMIE MADSENFaisal, COVID+Date of Service 03/30/2021 10:05HPI/ Events of Note Contacted by bedside provider, patient COVID-19 pneumonia. Concern is writing rising leukocytosis with left-sided shift. Patient mildly tachycardic, no fevers. Otherwise clinically unc hanged.Yes recommendationsDiscussed continuation of current plan of care, continue baricitinibCheck p rocalcitonin, if markedly elevated, at that time would discontinue baricitinib and institute initiati on of empiric antibiotic coverage, however low suspicion at this time for a pneumoniaCare and recomme ndations discussed with bedside providerInterventions Major-Infection - evaluation and managementElec tronically Signed by: MIKY VELAZQUEZ) on 03/30/2021 10:07
--- NOTE | 2021-03-30 14:59 | PCM.PN ---
- General Info Date of Service: 03/30/21 Subjective Update: The patient is a 50-year-old male, on day 4 of service, with a significant past medical history of obesity with a BMI over 41, who was admitted to the intensive care unit for acute respiratory failure secondary to COVID-19 pneumonia. He is currently on CPAP, with a flow rate of 8, FiO2 of 95, respiratory rate in the 30s, and saturating above 89%. This morning we had a discussion with the patient about possible intubation if his oxygen demand river nues to increase. He was given a few choices where we could continue with CPAP and have him on his current levels or intubate him and send him to a different facility to be monitored. We discussed that the mortality rate increases with intubation, however if intubated now his respiratory function may be preserved and better able to handle such a procedure. It was also explained to him that if he remains on CPAP and his respiratory function declines, and intubation occurs, his respiratory function would have already been compromised, and it would be difficult for him to recover leading to increased mortality. After these options were given to the patient, he decided to stay on CPAP and does not want to be intubated. Along with this, his white blood cell count was increased so I called eICU, more specifically Dr. Bronson, and spoke to him about the patient's white blood cell findings as well as sinus tachycardia he had on his vitals this morning. He suggested we order a procalcitonin and if it is markedly elevated to start antibiotics and discontinue baricitinib. If the pro calcitonin is around the normal range or slightly elevated, to not start antibiotics and to continue with the baricitinib. Speaking to the patient this morning he admits that his cough is only there upon drinking fluids and that he is less short of breath. He has no other complaints at this time. - Review of Systems General: Denies: Fever, Fatigue, Chills HEENT: Denies: Headaches Pulmonary: Reports: Cough. Denies: Shortness of Breath Cardiovascular: Denies: Chest Pain, Palpitations Gastrointestinal: Denies: Abdominal Pain Genitourinary: Denies: Dysuria - Patient Data Vitals - Most Recent: Last Vital Signs Temp 96.8 F L 03/30/21 12:00 Pulse 79 03/25/21 19:12 Resp 22 H 03/30/21 14:00 BP 96/62 03/30/21 14:00 Pulse Ox 92 L 03/30/21 14:00 Weight - Most Recent: 313 lb 13.777 oz I&O - Last 24 Hours: Intake & Output 03/29/21 03/30/21 03/30/21 22:59 06:59 14:59 Intake Total 1010 250 Output Total 1700 850 Balance -690 -600 Lab Results Last 24 Hours: Laboratory Results - last 24 hr 03/30/21 03/30/21 Range/Units 05:33 05:33 WBC 19.18 H (4.0-11.0) K/uL RBC 4.80 (4.50-5.90) M/uL Hgb 15.2 (13.0-17.0) g/dL Hct 46.1 (38.0-50.0) % MCV 96.0 (80.0-98.0) fL MCH 31.7 (27.0-32.0) pg MCHC 33.0 (31.0-37.0) g/dL RDW Std Deviation 47.4 (28.0-62.0) fl RDW Coeff of Kavon 13 (11.0-15.0) % Plt Count 195 (150-400) K/uL MPV 11.00 (7.40-12.00) fL Add Manual Diff YES Neutrophils % (Manual) 87 H (48.0-80.0) % Band Neutrophils % 6 % Lymphocytes % (Manual) 4 L (16.0-40.0) % Atypical Lymphs % 3 Nucleated RBC % 0.0 /100WBC Absolute Seg Neuts 16.7 H (1.4-5.7) Band Neutrophils # 1.2 Lymphocytes # (Manual) 0.8 (0.6-2.4) Nucleated RBCs # 0 K/uL Sodium 142 (136-148) mmol/L Potassium 4.7 (3.5-5.1) mmol/L Chloride 101 (98-107) mmol/L Carbon Dioxide 33.2 H (21.0-32.0) mmol/L BUN 15 (7.0-18.0) mg/dL Creatinine 0.8 (0.8-1.3) mg/dL Est Cr Clr Drug Dosing 120.27 mL/min Estimated GFR (MDRD) > 60.0 ml/min Glucose 102 (74-106) mg/dL Calcium 7.5 L (8.5-10.1) mg/dL Total Bilirubin 1.4 H (0.2-1.0) mg/dL AST 83 H (15-37) IU/L ALT 62 (14-63) IU/L Alkaline Phosphatase 96 (46-116) U/L Total Protein 6.5 (6.4-8.2) g/dL Albumin 2.4 L (3.4-5.0) g/dL Globulin 4.1 H (2.6-4.0) g/dL Albumin/Globulin Ratio 0.6 L (0.9-1.6) Med Orders - Current: Current Medications Albuterol/Ipratropium (Albuterol/Ipratropium 3.0-0.5 Mg/3 Ml Neb Soln) 3 ml NEB Q4HRRT [facility] Last Admin: 03/30/21 13:20 Dose: 3 ml Documented by: Dexamethasone (Dexamethasone 4 Mg/Ml Sdv) 6 mg IVPUSH DAILY [facility] Last Admin: 03/30/21 08:31 Dose: 6 mg Documented by: Enoxaparin Sodium (Enoxaparin 40 Mg/0.4 Ml Syringe) 40 mg SUBCUT Q12HR [facility] Last Admin: 03/30/21 08:31 Dose: 40 mg Documented by: Guaifenesin/Codeine Phosphate (Codeine/Guaifenesin 10-100 Mg/5 Ml Syrup 5 Ml Cup) 5 ml PO Q4H PRN PRN Reason: Cough Last Admin: 03/30/21 00:09 Dose: 5 ml Documented by: Pantoprazole Sodium 40 mg/ (Sodium Chloride) 10 mls @ 300 mls/hr IV Q24H [facility] Last Admin: 03/29/21 17:18 Dose: 300 mls/hr Documented by: Dexmedetomidine/Sodium (Chloride 400 mcg/ Premix) 100 mls @ 7.118 mls/hr IV .Q14H3M [facility]; Protocol Last Admin: 03/30/21 03:13 Dose: Not Given Documented by: Sodium Chloride (Sodium Chloride 0.65% Nasal [place] 45 Ml Bottle) 0 ml KANDIS Q4H PRN PRN Reason: nasal congestion Last Admin: 03/28/21 01:10 Dose: 1 spray Documented by: Discontinued Medications Albuterol/Ipratropium (Albuterol/Ipratropium 4 Gm Inhalation [place]) 1 gm INH Q4HRRT PRN PRN Reason: Dyspnea Dexamethasone (Dexamethasone 10 Mg/Ml Sdv) 6 mg IVPUSH ONETIME ONE Stop: 03/25/21 12:44 Last Admin: 03/25/21 13:06 Dose: 6 mg Documented by: Dexamethasone (Dexamethasone 4 Mg Tab) 6 mg PO DAILY [facility] Last Admin: 03/26/21 12:42 Dose: 6 mg Documented by: Furosemide (Furosemide 40 Mg/4 Ml Vial) 40 mg IVPUSH NOW ONE Stop: 03/28/21 23:30 Last Admin: 03/28/21 23:46 Dose: 40 mg Documented by: Guaifenesin/Dextromethorphan (Guaifenesin/Dextromethorphan 100-10 Mg/5 Ml Soln 10 Ml Cup) 10 ml PO Q4H PRN PRN Reason: Cough Last Admin: 03/27/21 10:26 Dose: 10 ml Documented by: Guaifenesin/Dextromethorphan (Guaifenesin/Dextromethorphan 100-10 Mg/5 Ml Soln 10 Ml Cup) 10 ml PO Q4H [facility] Guaifenesin/Dextromethorphan (Guaifenesin/Dextromethorphan 100-10 Mg/5 Ml Soln 10 Ml Cup) 10 ml PO Q4H [facility] Last Admin: 03/28/21 05:56 Dose: 10 ml Documented by: Remdesivir 200 mg/ Sodium (Chloride) 250 mls @ 250 mls/hr IV ONETIME ONE Stop: 03/25/21 17:29 Last Admin: 03/25/21 17:19 Dose: 250 mls/hr Documented by: Remdesivir 100 mg/ Sodium (Chloride) 100 mls @ 100 mls/hr IV Q24H [facility] Stop: 03/29/21 18:29 Last Admin: 03/29/21 17:18 Dose: 100 mls/hr Documented by: Iopamidol (Iopamidol 755 Mg/Ml 500 Ml Multipack Bottle) 100 ml IVPUSH ONETIME STA Stop: 03/26/21 01:46 Last Admin: 03/26/21 01:46 Dose: 100 ml Documented by: Ketorolac Tromethamine (Ketorolac 15 Mg/Ml Sdv) 15 mg IVPUSH ONETIME ONE Stop: 03/25/21 12:44 Last Admin: 03/25/21 13:06 Dose: 15 mg Documented by: Morphine Sulfate (Morphine 2 Mg/Ml Syringe) 2 mg IVPUSH ONETIME ONE Stop: 03/28/21 23:25 Last Admin: 03/28/21 23:45 Dose: 2 mg Documented by: - Exam Urinary Catheter Total Time: 1Days 12Hours General: Alert, Oriented, Cooperative HEENT: Mucous Membr. Moist/[place] Neck: Trachea Midline Lungs: Other (CPAP in place) Cardiovascular: Regular Rate, Regular Rhythm GI/Abdominal Exam: Normal Bowel Sounds, Soft, Non-Tender - Patient Data Lab Results Last 24 hrs: Laboratory Results - last 24 hr 03/30/21 03/30/21 Range/Units 05:33 05:33 WBC 19.18 H (4.0-11.0) K/uL RBC 4.80 (4.50-5.90) M/uL Hgb 15.2 (13.0-17.0) g/dL Hct 46.1 (38.0-50.0) % MCV 96.0 (80.0-98.0) fL MCH 31.7 (27.0-32.0) pg MCHC 33.0 (31.0-37.0) g/dL RDW Std Deviation 47.4 (28.0-62.0) fl RDW Coeff of Kavon 13 (11.0-15.0) % Plt Count 195 (150-400) K/uL MPV 11.00 (7.40-12.00) fL Add Manual Diff YES Neutrophils % (Manual) 87 H (48.0-80.0) % Band Neutrophils % 6 % Lymphocytes % (Manual) 4 L (16.0-40.0) % Atypical Lymphs % 3 Nucleated RBC % 0.0 /100WBC Absolute Seg Neuts 16.7 H (1.4-5.7) Band Neutrophils # 1.2 Lymphocytes # (Manual) 0.8 (0.6-2.4) Nucleated RBCs # 0 K/uL Sodium 142 (136-148) mmol/L Potassium 4.7 (3.5-5.1) mmol/L Chloride 101 (98-107) mmol/L Carbon Dioxide 33.2 H (21.0-32.0) mmol/L BUN 15 (7.0-18.0) mg/dL Creatinine 0.8 (0.8-1.3) mg/dL Est Cr Clr Drug Dosing 120.27 mL/min Estimated GFR (MDRD) > 60.0 ml/min Glucose 102 (74-106) mg/dL Calcium 7.5 L (8.5-10.1) mg/dL Total Bilirubin 1.4 H (0.2-1.0) mg/dL AST 83 H (15-37) IU/L ALT 62 (14-63) IU/L Alkaline Phosphatase 96 (46-116) U/L Total Protein 6.5 (6.4-8.2) g/dL Albumin 2.4 L (3.4-5.0) g/dL Globulin 4.1 H (2.6-4.0) g/dL Albumin/Globulin Ratio 0.6 L (0.9-1.6) Result Diagrams: 03/30/21 05:33 03/30/21 05:33 Sepsis Event Note - Evaluation Sepsis Screening Result: Severe Sepsis Risk - Focused Exam Vital Signs: Vital Signs Temp Resp BP Pulse Ox 03/30/21 14:00 22 H 96/62 92 L 03/30/21 13:00 18 105/74 96 03/30/21 12:00 96.8 F L 26 H 108/57 L 92 L 03/30/21 11:00 34 H 126/62 89 L 03/30/21 10:00 37 H 98/57 L 88 L 03/30/21 09:00 39 H 150/96 H 87 L 03/30/21 08:00 97.1 F 28 H 131/89 90 L 03/30/21 07:00 31 H 131/90 89 L 03/30/21 06:00 35 H 101/74 90 L 03/30/21 05:00 39 H 112/68 91 L 03/30/21 04:00 97.2 F 38 H 115/75 89 L 03/30/21 03:00 34 H 126/47 L 88 L - Problem List & Annotations (1) COVID-19 SNOMED Code(s): 904248114 Code(s): U07.1 - COVID-19 Status: Acute Current Visit: Yes (2) Obesity SNOMED Code(s): 914821266, 603294118 Code(s): E66.9 - OBESITY, UNSPECIFIED Status: Acute Current Visit: Yes (3) Anxiety about health SNOMED Code(s): 183573948 Code(s): F41.8 - OTHER SPECIFIED ANXIETY DISORDERS Status: Acute Current Visit: Yes - Problem List Review Problem List Initiated/Reviewed/Updated: Yes - My Orders Last 24 Hours: My Active Orders 03/30/21 10:39 PROCALCITONIN [REF] Stat 03/31/21 05:11 CBC WITH AUTO DIFF [HEME] AM CMP [COMPREHENSIVE METABOLIC PN,CMP] [CHEM] AM 04/01/21 05:11 CBC WITH AUTO DIFF [HEME] AM CMP [COMPREHENSIVE METABOLIC PN,CMP] [CHEM] AM 04/02/21 05:11 CBC WITH AUTO DIFF [HEME] AM CMP [COMPREHENSIVE METABOLIC PN,CMP] [CHEM] AM 04/03/21 05:11 CBC WITH AUTO DIFF [HEME] AM CMP [COMPREHENSIVE METABOLIC PN,CMP] [CHEM] AM - Assessment Assessment:: 1. Acute respiratory failure secondary to COVID-19 pneumonia -The patient is currently on CPAP, flow rate of 8, FiO2 of 95, respiratory rate in the 30s, saturating 89%. We will continue to wean this patient as appropriate. -We will continue the patient on dexamethasone 6 mg p.o. once a day. -For cough, the patient has been put on Robitussin DM every 4 hours as needed. -For shortness of breath, the patient has been placed on duo nebs every 4 hours scheduled. -Continue baricitinib treatment, 4 mg per oral route -Daily CBC/CMP. 2. Anxiety/Agitation -The patient has anxiolytic Precedex on board but it was not given today
[2021-03-30] MEDS: Pantoprazole 40 MG in Sodium Chloride 0.9% 10 ML IV SCH (18:05)
--- NOTE | 2021-03-30 18:16 | PCM.SN.2 ---
- Free Text/Narrative Note: Had a chance to speak with the patient in regards to family members who could be contacted if he was to have worsening clinical status, or if intubation had to take place. First contact is the patient's , who speaks Yakut and Indonesian, name is Adrián Valera, , she lives in [place]. Time Documentation
[2021-03-31] MEDS: Albuterol/Ipratropium 3.0-0.5 MG/3 ML Neb Soln NEB SCH ×6 (01:30→22:26)
[2021-03-31] MEDS: Codeine/guaiFENesin 10-100 MG/5 ML Syrup 5 ML Cup PO PRN ×2 (04:20→21:05)
[2021-03-31] MEDS: Benzonatate 100 MG Cap PO PRN ×2 (05:42→21:05)
[2021-03-31 07:16] LABS: BLOOD UREA NITROGEN,BUN 20 mg/dL (7.0-18.0); CARBON DIOXIDE,CO2 33.2 mmol/L (21.0-32.0); CHLORIDE,CL 102 mmol/L (98-107); GLUCOSE RANDOM 100 mg/dL (74-106); POTASSIUM,K 4.9 mmol/L (3.5-5.1); SODIUM,NA 143 mmol/L (136-148)
[2021-03-31] MEDS: Dexamethasone 4 MG/ML SDV IVPUSH SCH (08:56)
[2021-03-31] MEDS: Enoxaparin 40 MG/0.4 ML Syringe SUBCUT SCH ×2 (08:57→21:05)
--- NOTE | 2021-03-31 12:18 | PCM.PN ---
- General Info Date of Service: 03/31/21 Subjective Update: The patient is a 50-year-old male, on day 6 of service, with a significant past medical history of obesity with a BMI over 41, who was admitted to the intensive care unit for acute respiratory failure secondary to COVID-19 pneumonia. He is currently on CPAP, with a flow rate of 10, FiO2 of 95, respiratory rate in the 30s, and saturating above 90%. This morning his pro calcitonin levels came back and was slightly increased at 1.05. Based on prior conversation with eICU physician Dr. Bronson, we will not initiate antibiotic treatment and will continue with baricitinib daily. Upon interview today the patient has no complaints that are new, he admits his cough is only there upon drinking fluids, and that his shortness of breath has significantly decreased. He would like to know how long he has to stay in the hospital. I educated the patient on the progression of oxygen demand from CPAP down to heated high flow down to nasal cannula, and that he still needs a relative amount of time before he would possibly be ready for discharge. He has no other complaints at this time. - Review of Systems General: Denies: Fever, Weakness, Fatigue HEENT: Denies: Headaches Pulmonary: Reports: Shortness of Breath, Cough Cardiovascular: Denies: Chest Pain, Palpitations, Dyspnea on Exertion Gastrointestinal: Denies: Abdominal Pain, Constipation, Diarrhea Genitourinary: Denies: Dysuria - Patient Data Vitals - Most Recent: Last Vital Signs Temp 97 F 03/31/21 08:00 Pulse 79 03/25/21 19:12 Resp 31 H 03/31/21 11:00 BP 131/85 03/31/21 11:00 Pulse Ox 87 L 03/31/21 11:00 Weight - Most Recent: 313 lb 13.777 oz I&O - Last 24 Hours: Intake & Output 03/30/21 03/31/21 03/31/21 22:59 06:59 14:59 Intake Total 610 750 Output Total 750 950 Balance -140 -200 Lab Results Last 24 Hours: Laboratory Results - last 24 hr 03/30/21 03/31/21 03/31/21 Range/Units 10:39 04:50 04:50 WBC 18.46 H (4.0-11.0) K/uL RBC 4.91 (4.50-5.90) M/uL Hgb 16.0 (13.0-17.0) g/dL Hct 47.9 (38.0-50.0) % MCV 97.6 (80.0-98.0) fL MCH 32.6 H (27.0-32.0) pg MCHC 33.4 (31.0-37.0) g/dL RDW Std Deviation 47.9 (28.0-62.0) fl RDW Coeff of Kavon 13 (11.0-15.0) % Plt Count 181 (150-400) K/uL MPV 11.10 (7.40-12.00) fL Add Manual Diff YES Neutrophils % (Manual) 85 H (48.0-80.0) % Band Neutrophils % 2 % Lymphocytes % (Manual) 5 L (16.0-40.0) % Monocytes % (Manual) 4 (0.0-15.0) % Eosinophils % (Manual) 2 (0.0-7.0) % Metamyelocytes % 1 % Myelocytes % 1 % Nucleated RBC % 0.0 /100WBC Absolute Seg Neuts 15.7 H (1.4-5.7) Band Neutrophils # 0.4 Lymphocytes # (Manual) 0.9 (0.6-2.4) Monocytes # (Manual) 0.7 (0.0-0.8) Eosinophils # (Manual) 0.4 (0.0-0.7) Absolute Metamyelocyte 0.2 Absolute Myelocytes 0.2 Nucleated RBCs # 0 K/uL Sodium 143 (136-148) mmol/L Potassium 4.9 (3.5-5.1) mmol/L Chloride 102 (98-107) mmol/L Carbon Dioxide 33.2 H (21.0-32.0) mmol/L BUN 20 H (7.0-18.0) mg/dL Creatinine 0.9 (0.8-1.3) mg/dL Est Cr Clr Drug Dosing 106.91 mL/min Estimated GFR (MDRD) > 60.0 ml/min Glucose 100 (74-106) mg/dL Calcium 8.0 L (8.5-10.1) mg/dL Total Bilirubin 1.4 H (0.2-1.0) mg/dL AST 80 H (15-37) IU/L ALT 65 H (14-63) IU/L Alkaline Phosphatase 87 (46-116) U/L Total Protein 6.7 (6.4-8.2) g/dL Albumin 2.4 L (3.4-5.0) g/dL Globulin 4.3 H (2.6-4.0) g/dL Albumin/Globulin Ratio 0.6 L (0.9-1.6) Procalcitonin 1.05 H ng/mL Med Orders - Current: Current Medications Albuterol/Ipratropium (Albuterol/Ipratropium 3.0-0.5 Mg/3 Ml Neb Soln) 3 ml NEB Q4HRRT [facility] Last Admin: 03/31/21 09:19 Dose: 3 ml Documented by: Benzonatate (Benzonatate 100 Mg Cap) 100 mg PO Q6H PRN PRN Reason: Cough Last Admin: 03/31/21 05:42 Dose: 100 mg Documented by: Dexamethasone (Dexamethasone 4 Mg/Ml Sdv) 6 mg IVPUSH DAILY [facility] Last Admin: 03/31/21 08:56 Dose: 6 mg Documented by: Enoxaparin Sodium (Enoxaparin 40 Mg/0.4 Ml Syringe) 40 mg SUBCUT Q12HR [facility] Last Admin: 03/31/21 08:57 Dose: 40 mg Documented by: Guaifenesin/Codeine Phosphate (Codeine/Guaifenesin 10-100 Mg/5 Ml Syrup 5 Ml Cup) 5 ml PO Q4H PRN PRN Reason: Cough Last Admin: 03/31/21 04:20 Dose: 5 ml Documented by: Pantoprazole Sodium 40 mg/ (Sodium Chloride) 10 mls @ 300 mls/hr IV Q24H [facility] Last Admin: 03/30/21 18:05 Dose: 300 mls/hr Documented by: Dexmedetomidine/Sodium (Chloride 400 mcg/ Premix) 100 mls @ 7.118 mls/hr IV .Q14H3M [facility]; Protocol Last Admin: 03/31/21 07:28 Dose: Not Given Documented by: Sodium Chloride (Sodium Chloride 0.65% Nasal [place] 45 Ml Bottle) 0 ml KANDIS Q4H PRN PRN Reason: nasal congestion Last Admin: 03/28/21 01:10 Dose: 1 spray Documented by: Discontinued Medications Albuterol/Ipratropium (Albuterol/Ipratropium 4 Gm Inhalation [place]) 1 gm INH Q4HRRT PRN PRN Reason: Dyspnea Dexamethasone (Dexamethasone 10 Mg/Ml Sdv) 6 mg IVPUSH ONETIME ONE Stop: 03/25/21 12:44 Last Admin: 03/25/21 13:06 Dose: 6 mg Documented by: Dexamethasone (Dexamethasone 4 Mg Tab) 6 mg PO DAILY [facility] Last Admin: 03/26/21 12:42 Dose: 6 mg Documented by: Furosemide (Furosemide 40 Mg/4 Ml Vial) 40 mg IVPUSH NOW ONE Stop: 03/28/21 23:30 Last Admin: 03/28/21 23:46 Dose: 40 mg Documented by: Guaifenesin/Dextromethorphan (Guaifenesin/Dextromethorphan 100-10 Mg/5 Ml Soln 10 Ml Cup) 10 ml PO Q4H PRN PRN Reason: Cough Last Admin: 03/27/21 10:26 Dose: 10 ml Documented by: Guaifenesin/Dextromethorphan (Guaifenesin/Dextromethorphan 100-10 Mg/5 Ml Soln 10 Ml Cup) 10 ml PO Q4H [facility] Guaifenesin/Dextromethorphan (Guaifenesin/Dextromethorphan 100-10 Mg/5 Ml Soln 10 Ml Cup) 10 ml PO Q4H [facility] Last Admin: 03/28/21 05:56 Dose: 10 ml Documented by: Remdesivir 200 mg/ Sodium (Chloride) 250 mls @ 250 mls/hr IV ONETIME ONE Stop: 03/25/21 17:29 Last Admin: 03/25/21 17:19 Dose: 250 mls/hr Documented by: Remdesivir 100 mg/ Sodium (Chloride) 100 mls @ 100 mls/hr IV Q24H [facility] Stop: 03/29/21 18:29 Last Admin: 03/29/21 17:18 Dose: 100 mls/hr Documented by: Iopamidol (Iopamidol 755 Mg/Ml 500 Ml Multipack Bottle) 100 ml IVPUSH ONETIME STA Stop: 03/26/21 01:46 Last Admin: 03/26/21 01:46 Dose: 100 ml Documented by: Ketorolac Tromethamine (Ketorolac 15 Mg/Ml Sdv) 15 mg IVPUSH ONETIME ONE Stop: 03/25/21 12:44 Last Admin: 03/25/21 13:06 Dose: 15 mg Documented by: Morphine Sulfate (Morphine 2 Mg/Ml Syringe) 2 mg IVPUSH ONETIME ONE Stop: 03/28/21 23:25 Last Admin: 03/28/21 23:45 Dose: 2 mg Documented by: - Exam Quality Assessment: Central Line/PICC Urinary Catheter Total Time: 2Days 11Hours General: Alert, Oriented, Cooperative HEENT: Mucous Membr. Moist/[place] Neck: Trachea Midline Lungs: Other (CPAP in place) Cardiovascular: Tachycardia GI/Abdominal Exam: Normal Bowel Sounds, Soft, Non-Tender - Patient Data Lab Results Last 24 hrs: Laboratory Results - last 24 hr 03/30/21 03/31/21 03/31/21 Range/Units 10:39 04:50 04:50 WBC 18.46 H (4.0-11.0) K/uL RBC 4.91 (4.50-5.90) M/uL Hgb 16.0 (13.0-17.0) g/dL Hct 47.9 (38.0-50.0) % MCV 97.6 (80.0-98.0) fL MCH 32.6 H (27.0-32.0) pg MCHC 33.4 (31.0-37.0) g/dL RDW Std Deviation 47.9 (28.0-62.0) fl RDW Coeff of Kavon 13 (11.0-15.0) % Plt Count 181 (150-400) K/uL MPV 11.10 (7.40-12.00) fL Add Manual Diff YES Neutrophils % (Manual) 85 H (48.0-80.0) % Band Neutrophils % 2 % Lymphocytes % (Manual) 5 L (16.0-40.0) % Monocytes % (Manual) 4 (0.0-15.0) % Eosinophils % (Manual) 2 (0.0-7.0) % Metamyelocytes % 1 % Myelocytes % 1 % Nucleated RBC % 0.0 /100WBC Absolute Seg Neuts 15.7 H (1.4-5.7) Band Neutrophils # 0.4 Lymphocytes # (Manual) 0.9 (0.6-2.4) Monocytes # (Manual) 0.7 (0.0-0.8) Eosinophils # (Manual) 0.4 (0.0-0.7) Absolute Metamyelocyte 0.2 Absolute Myelocytes 0.2 Nucleated RBCs # 0 K/uL Sodium 143 (136-148) mmol/L Potassium 4.9 (3.5-5.1) mmol/L Chloride 102 (98-107) mmol/L Carbon Dioxide 33.2 H (21.0-32.0) mmol/L BUN 20 H (7.0-18.0) mg/dL Creatinine 0.9 (0.8-1.3) mg/dL Est Cr Clr Drug Dosing 106.91 mL/min Estimated GFR (MDRD) > 60.0 ml/min Glucose 100 (74-106) mg/dL Calcium 8.0 L (8.5-10.1) mg/dL Total Bilirubin 1.4 H (0.2-1.0) mg/dL AST 80 H (15-37) IU/L ALT 65 H (14-63) IU/L Alkaline Phosphatase 87 (46-116) U/L Total Protein 6.7 (6.4-8.2) g/dL Albumin 2.4 L (3.4-5.0) g/dL Globulin 4.3 H (2.6-4.0) g/dL Albumin/Globulin Ratio 0.6 L (0.9-1.6) Procalcitonin 1.05 H ng/mL Result Diagrams: 03/31/21 04:50 03/31/21 04:50 Sepsis Event Note - Evaluation Sepsis Screening Result: Severe Sepsis Risk - Focused Exam Vital Signs: Vital Signs Temp Resp BP Pulse Ox 03/31/21 11:00 31 H 131/85 87 L 03/31/21 10:15 36 H 77 L 03/31/21 10:00 36 H 143/95 H 91 L 03/31/21 09:00 29 H 133/92 H 92 L 03/31/21 08:00 97 F 32 H 127/81 88 L 03/31/21 07:00 36 H 110/61 88 L 03/31/21 06:00 33 H 132/81 91 L 03/31/21 05:00 34 H 91 L 03/31/21 04:00 97.7 F 33 H 143/67 H 87 L 03/31/21 03:00 31 H 162/98 H 88 L 03/31/21 02:00 42 H 137/53 L 91 L 03/31/21 01:00 44 H 145/50 H 86 L - Problem List & Annotations (1) COVID-19 SNOMED Code(s): 857190214 Code(s): U07.1 - COVID-19 Status: Acute Current Visit: Yes (2) Obesity SNOMED Code(s): 940297770, 781510642 Code(s): E66.9 - OBESITY, UNSPECIFIED Status: Acute Current Visit: Yes (3) Anxiety about health SNOMED Code(s): 769452119 Code(s): F41.8 - OTHER SPECIFIED ANXIETY DISORDERS Status: Acute Current Visit: Yes - Problem List Review Problem List Initiated/Reviewed/Updated: Yes - My Orders Last 24 Hours: My Active Orders 04/01/21 05:11 CBC WITH AUTO DIFF [HEME] AM CMP [COMPREHENSIVE METABOLIC PN,CMP] [CHEM] AM 04/02/21 05:11 CBC WITH AUTO DIFF [HEME] AM CMP [COMPREHENSIVE METABOLIC PN,CMP] [CHEM] AM 04/03/21 05:11 CBC WITH AUTO DIFF [HEME] AM CMP [COMPREHENSIVE METABOLIC PN,CMP] [CHEM] AM - Assessment Assessment:: 1. Acute respiratory failure secondary to COVID-19 pneumonia -The patient is currently on CPAP, flow rate of 10, FiO2 of 95, respiratory rate in the 30s, saturating above 90%. We will continue to wean this patient as appropriate. -We will continue the patient on dexamethasone 6 mg p.o. once a day. -For cough, the patient has been put on Robitussin DM every 4 hours as needed. -For shortness of breath, the patient has been placed on duo nebs every 4 hours scheduled. -Continue baricitinib treatment, 4 mg per oral route -Daily CBC/CMP. 2. Anxiety/Agitation -The patient has anxiolytic Precedex on board
[2021-03-31] MEDS: Pantoprazole 40 MG in Sodium Chloride 0.9% 10 ML IV SCH (17:29)
--- NOTE | 2021-03-31 19:28 | PN ---
SHEY Physician - Brief Progress [id number]/05/2021 19:22[facility] Delonte Rodriguez, [place] - JESSICA (UMAIR) - NAOMIE ALBARRAN, SAMMY+Date of Service 03/31/2021 19:22HPI/ Events of Note Pt is on CPAP 10 cm H2O and 100% fio2 with spo2 91% on my exam. He is comfortably sitt ing in bed watching TV. VS: 113, 138/72, 29, 87%Gen: Comfortable, NAD, obeseHeart: Mild sinus tachyca rdia on telemetryLungs: Breathing comfortably on CPAP 10 cm H2O with 100% fio2 with spo2 91%Neuro: aw fernie, alert, NAD, watching TVASSESSMENT:Acute hypoxic respiratory failureMultifocal community acquired pneumonia d/t [id number] PLAN: O2 via NIV, wean as toleratedMaintain spo2 >90% and po2 >60 mmHgC ontinue dexamethasoneBaricitinibDroplet isolation per protocolF/U chest imaging and ABG at discretion of bedside teamInterventions Major-Hypoxemia - evaluation and management, Infection - evaluation and management, Respiratory failure - evaluation and management
[2021-04-01] MEDS: Albuterol/Ipratropium 3.0-0.5 MG/3 ML Neb Soln NEB SCH ×6 (01:27→21:18)
[2021-04-01 07:40] LABS: BLOOD UREA NITROGEN,BUN 16 mg/dL (7.0-18.0); CARBON DIOXIDE,CO2 29.8 mmol/L (21.0-32.0); CHLORIDE,CL 101 mmol/L (98-107); GLUCOSE RANDOM 97 mg/dL (74-106); POTASSIUM,K 4.4 mmol/L (3.5-5.1); SODIUM,NA 141 mmol/L (136-148)
[2021-04-01] MEDS: Dexamethasone 4 MG/ML SDV IVPUSH SCH (09:12)
[2021-04-01] MEDS: Enoxaparin 40 MG/0.4 ML Syringe SUBCUT SCH ×2 (09:12→21:16)
[2021-04-01] MEDS: Codeine/guaiFENesin 10-100 MG/5 ML Syrup 5 ML Cup PO PRN ×3 (09:13→21:16)
[2021-04-01] MEDS: Benzonatate 100 MG Cap PO PRN ×3 (09:13→23:04)
[2021-04-01] MEDS: Pantoprazole 40 MG in Sodium Chloride 0.9% 10 ML IV SCH (16:50)
--- NOTE | 2021-04-01 17:13 | PCM.PN ---
- General Info Date of Service: 04/01/21 Subjective Update: The patient is a 50-year-old male, on day 7 of service, with a significant past medical history of obesity with a BMI over 41, who was admitted to the intensive care unit for acute respiratory failure secondary to COVID-19 pneumonia. He is currently on CPAP, with a flow rate of 10, FiO2 of 100, respiratory rate of 33, and saturating 92%. Based on the patient's current oxygen demand, he is progressing towards increased supplied needed. He may need to be intubated if he does not improve. Currently the patient is not complaining of any shortness of breath or cough, but does feel anxious and is receiving Precedex treatment. Dr. Brown, service clerk here at [facility] contacted the patient's , and had a discussion with her in regards to the patient's current clinical status, and the possible need for intubation and transfer to a different facility. The patient's was appreciative of the conversation and asked if her could be transferred to [place] where the family resides. It was iterated to her that transfer beds are of limited supply, and that the first bed available would most likely be in [place]. I had a chance to call the [facility] transfer center, at , and spoke to Lens Grinder Thanh with respect to this patient's case and current oxygen demand. The patient has been put on a waiting list when it comes to available beds, I will be contacted by Thanh when one becomes free. - Review of Systems General: Denies: Fever, Weakness, Fatigue HEENT: Denies: Headaches Pulmonary: Denies: Shortness of Breath, Cough Cardiovascular: Denies: Chest Pain, Palpitations Gastrointestinal: Denies: Abdominal Pain, Constipation, Diarrhea Psychiatric: Reports: Anxiety - Patient Data Vitals - Most Recent: Last Vital Signs Temp 97.2 F 04/01/21 16:00 Pulse 79 03/25/21 19:12 Resp 28 H 04/01/21 16:00 BP 112/87 04/01/21 16:00 Pulse Ox 90 L 04/01/21 16:00 Weight - Most Recent: 313 lb 13.777 oz I&O - Last 24 Hours: Intake & Output 04/01/21 04/01/21 04/01/21 06:59 14:59 22:59 Intake Total 10 Balance 10 Lab Results Last 24 Hours: Laboratory Results - last 24 hr 04/01/21 04/01/21 Range/Units 05:00 05:00 WBC 18.09 H (4.0-11.0) K/uL RBC 4.90 (4.50-5.90) M/uL Hgb 15.6 (13.0-17.0) g/dL Hct 48.5 (38.0-50.0) % MCV 99.0 H (80.0-98.0) fL MCH 31.8 (27.0-32.0) pg MCHC 32.2 (31.0-37.0) g/dL RDW Std Deviation 49.5 (28.0-62.0) fl RDW Coeff of Kavon 14 (11.0-15.0) % Plt Count 169 (150-400) K/uL MPV 11.80 (7.40-12.00) fL Neut % (Auto) 94.6 H (48.0-80.0) % Lymph % (Auto) 1.8 L (16.0-40.0) % [place] % (Auto) 2.2 (0.0-15.0) % Eos % (Auto) 1.2 (0.0-7.0) % Baso % (Auto) 0.2 (0.0-1.5) % Neut # (Auto) 17.1 H (1.4-5.7) K/uL Lymph # (Auto) 0.3 L (0.6-2.4) K/uL [place] # (Auto) 0.4 (0.0-0.8) K/uL Eos # (Auto) 0.2 (0.0-0.7) K/uL Baso # (Auto) 0.0 (0.0-0.1) K/uL Nucleated RBC % 0.0 /100WBC Nucleated RBCs # 0 K/uL Sodium 141 (136-148) mmol/L Potassium 4.4 (3.5-5.1) mmol/L Chloride 101 (98-107) mmol/L Carbon Dioxide 29.8 (21.0-32.0) mmol/L BUN 16 (7.0-18.0) mg/dL Creatinine 0.9 (0.8-1.3) mg/dL Est Cr Clr Drug Dosing 106.91 mL/min Estimated GFR (MDRD) > 60.0 ml/min Glucose 97 (74-106) mg/dL Calcium 7.8 L (8.5-10.1) mg/dL Total Bilirubin 1.7 H (0.2-1.0) mg/dL AST 71 H (15-37) IU/L ALT 55 (14-63) IU/L Alkaline Phosphatase 99 (46-116) U/L Total Protein 7.2 (6.4-8.2) g/dL Albumin 2.2 L (3.4-5.0) g/dL Globulin 5.0 H (2.6-4.0) g/dL Albumin/Globulin Ratio 0.4 L (0.9-1.6) Med Orders - Current: Current Medications Albuterol/Ipratropium (Albuterol/Ipratropium 3.0-0.5 Mg/3 Ml Neb Soln) 3 ml NEB Q4HRRT [facility] Last Admin: 04/01/21 15:50 Dose: 3 ml Documented by: Benzonatate (Benzonatate 100 Mg Cap) 100 mg PO Q6H PRN PRN Reason: Cough Last Admin: 04/01/21 15:50 Dose: 100 mg Documented by: Dexamethasone (Dexamethasone 4 Mg/Ml Sdv) 6 mg IVPUSH DAILY [facility] Last Admin: 04/01/21 09:12 Dose: 6 mg Documented by: Enoxaparin Sodium (Enoxaparin 40 Mg/0.4 Ml Syringe) 40 mg SUBCUT Q12HR [facility] Last Admin: 04/01/21 09:12 Dose: 40 mg Documented by: Guaifenesin/Codeine Phosphate (Codeine/Guaifenesin 10-100 Mg/5 Ml Syrup 5 Ml Cup) 5 ml PO Q4H PRN PRN Reason: Cough Last Admin: 04/01/21 15:50 Dose: 5 ml Documented by: Pantoprazole Sodium 40 mg/ (Sodium Chloride) 10 mls @ 300 mls/hr IV Q24H [facility] Last Admin: 04/01/21 16:50 Dose: 300 mls/hr Documented by: Dexmedetomidine/Sodium (Chloride 400 mcg/ Premix) 100 mls @ 7.118 mls/hr IV .Q14H3M [facility]; Protocol Last Titration: 04/01/21 16:51 Dose: 0.2 mcg/kg/hr, 7.118 mls/hr Documented by: Sodium Chloride (Sodium Chloride 0.65% Nasal [place] 45 Ml Bottle) 0 ml KANDIS Q4H PRN PRN Reason: nasal congestion Last Admin: 03/28/21 01:10 Dose: 1 spray Documented by: Discontinued Medications Albuterol/Ipratropium (Albuterol/Ipratropium 4 Gm Inhalation [place]) 1 gm INH Q4HRRT PRN PRN Reason: Dyspnea Dexamethasone (Dexamethasone 10 Mg/Ml Sdv) 6 mg IVPUSH ONETIME ONE Stop: 03/25/21 12:44 Last Admin: 03/25/21 13:06 Dose: 6 mg Documented by: Dexamethasone (Dexamethasone 4 Mg Tab) 6 mg PO DAILY [facility] Last Admin: 03/26/21 12:42 Dose: 6 mg Documented by: Furosemide (Furosemide 40 Mg/4 Ml Vial) 40 mg IVPUSH NOW ONE Stop: 03/28/21 23:30 Last Admin: 03/28/21 23:46 Dose: 40 mg Documented by: Guaifenesin/Dextromethorphan (Guaifenesin/Dextromethorphan 100-10 Mg/5 Ml Soln 10 Ml Cup) 10 ml PO Q4H PRN PRN Reason: Cough Last Admin: 03/27/21 10:26 Dose: 10 ml Documented by: Guaifenesin/Dextromethorphan (Guaifenesin/Dextromethorphan 100-10 Mg/5 Ml Soln 10 Ml Cup) 10 ml PO Q4H [facility] Guaifenesin/Dextromethorphan (Guaifenesin/Dextromethorphan 100-10 Mg/5 Ml Soln 10 Ml Cup) 10 ml PO Q4H [facility] Last Admin: 03/28/21 05:56 Dose: 10 ml Documented by: Remdesivir 200 mg/ Sodium (Chloride) 250 mls @ 250 mls/hr IV ONETIME ONE Stop: 03/25/21 17:29 Last Admin: 03/25/21 17:19 Dose: 250 mls/hr Documented by: Remdesivir 100 mg/ Sodium (Chloride) 100 mls @ 100 mls/hr IV Q24H [facility] Stop: 03/29/21 18:29 Last Admin: 03/29/21 17:18 Dose: 100 mls/hr Documented by: Iopamidol (Iopamidol 755 Mg/Ml 500 Ml Multipack Bottle) 100 ml IVPUSH ONETIME STA Stop: 03/26/21 01:46 Last Admin: 03/26/21 01:46 Dose: 100 ml Documented by: Ketorolac Tromethamine (Ketorolac 15 Mg/Ml Sdv) 15 mg IVPUSH ONETIME ONE Stop: 03/25/21 12:44 Last Admin: 03/25/21 13:06 Dose: 15 mg Documented by: Morphine Sulfate (Morphine 2 Mg/Ml Syringe) 2 mg IVPUSH ONETIME ONE Stop: 03/28/21 23:25 Last Admin: 03/28/21 23:45 Dose: 2 mg Documented by: - Exam Urinary Catheter Total Time: 3Days 15Hours General: Alert, Oriented HEENT: Mucous Membr. Moist/[place] Neck: Trachea Midline Lungs: Other (CPAP in place) Cardiovascular: Tachycardia GI/Abdominal Exam: Normal Bowel Sounds, Soft, Non-Tender Extremities: Other (SCDs in place bilaterally on lower extremities) - Patient Data Lab Results Last 24 hrs: Laboratory Results - last 24 hr 04/01/21 04/01/21 Range/Units 05:00 05:00 WBC 18.09 H (4.0-11.0) K/uL RBC 4.90 (4.50-5.90) M/uL Hgb 15.6 (13.0-17.0) g/dL Hct 48.5 (38.0-50.0) % MCV 99.0 H (80.0-98.0) fL MCH 31.8 (27.0-32.0) pg MCHC 32.2 (31.0-37.0) g/dL RDW Std Deviation 49.5 (28.0-62.0) fl RDW Coeff of Kavon 14 (11.0-15.0) % Plt Count 169 (150-400) K/uL MPV 11.80 (7.40-12.00) fL Neut % (Auto) 94.6 H (48.0-80.0) % Lymph % (Auto) 1.8 L (16.0-40.0) % [place] % (Auto) 2.2 (0.0-15.0) % Eos % (Auto) 1.2 (0.0-7.0) % Baso % (Auto) 0.2 (0.0-1.5) % Neut # (Auto) 17.1 H (1.4-5.7) K/uL Lymph # (Auto) 0.3 L (0.6-2.4) K/uL [place] # (Auto) 0.4 (0.0-0.8) K/uL Eos # (Auto) 0.2 (0.0-0.7) K/uL Baso # (Auto) 0.0 (0.0-0.1) K/uL Nucleated RBC % 0.0 /100WBC Nucleated RBCs # 0 K/uL Sodium 141 (136-148) mmol/L Potassium 4.4 (3.5-5.1) mmol/L Chloride 101 (98-107) mmol/L Carbon Dioxide 29.8 (21.0-32.0) mmol/L BUN 16 (7.0-18.0) mg/dL Creatinine 0.9 (0.8-1.3) mg/dL Est Cr Clr Drug Dosing 106.91 mL/min Estimated GFR (MDRD) > 60.0 ml/min Glucose 97 (74-106) mg/dL Calcium 7.8 L (8.5-10.1) mg/dL Total Bilirubin 1.7 H (0.2-1.0) mg/dL AST 71 H (15-37) IU/L ALT 55 (14-63) IU/L Alkaline Phosphatase 99 (46-116) U/L Total Protein 7.2 (6.4-8.2) g/dL Albumin 2.2 L (3.4-5.0) g/dL Globulin 5.0 H (2.6-4.0) g/dL Albumin/Globulin Ratio 0.4 L (0.9-1.6) Result Diagrams: 04/01/21 05:00 04/01/21 05:00 Sepsis Event Note - Evaluation Sepsis Screening Result: Severe Sepsis Risk - Focused Exam Vital Signs: Vital Signs Temp Resp BP Pulse Ox 04/01/21 16:00 97.2 F 28 H 112/87 90 L 04/01/21 15:00 28 H 113/73 88 L 04/01/21 14:00 29 H 132/99 H 85 L 04/01/21 13:00 29 H 144/79 H 87 L 04/01/21 12:00 97.5 F 31 H 142/98 H 88 L 04/01/21 11:00 32 H 142/92 H 83 L 04/01/21 10:00 32 H 118/68 86 L 04/01/21 09:00 34 H 142/79 H 88 L 04/01/21 08:00 96.8 F L 32 H 133/97 H 86 L 04/01/21 07:00 34 H 123/81 85 L - Problem List & Annotations (1) COVID-19 SNOMED Code(s): 122392474 Code(s): U07.1 - COVID-19 Status: Acute Current Visit: Yes (2) Obesity SNOMED Code(s): 362716830, 850054233 Code(s): E66.9 - OBESITY, UNSPECIFIED Status: Acute Current Visit: Yes (3) Anxiety about health SNOMED Code(s): 134481084 Code(s): F41.8 - OTHER SPECIFIED ANXIETY DISORDERS Status: Acute Current Visit: Yes - Problem List Review Problem List Initiated/Reviewed/Updated: Yes - My Orders Last 24 Hours: My Active Orders 04/02/21 05:11 CBC WITH AUTO DIFF [HEME] AM CMP [COMPREHENSIVE METABOLIC PN,CMP] [CHEM] AM 04/03/21 05:11 CBC WITH AUTO DIFF [HEME] AM CMP [COMPREHENSIVE METABOLIC PN,CMP] [CHEM] AM - Assessment Assessment:: 1. Acute respiratory failure secondary to COVID-19 pneumonia -The patient is currently on CPAP, flow rate of 10, FiO2 of 100, respiratory rate of 33, saturating at 92%. We will continue to wean this patient as appropriate. -We will continue the patient on dexamethasone 6 mg p.o. once a day. -For cough and congestion, the patient has been put on Robitussin AC and benzonatate. -For shortness of breath, the patient has been placed on duo nebs every 4 hours scheduled. -Continue baricitinib treatment, 4 mg per oral route -Daily CBC/CMP. 2. Anxiety/Agitation -The patient has anxiolytic Precedex on board
[2021-04-01] MEDS ORDERED: Hydrocolloid Dressing 4x4 Bandage ONE (23:11)
[2021-04-02] MEDS: Albuterol/Ipratropium 3.0-0.5 MG/3 ML Neb Soln NEB SCH ×6 (02:42→21:57)
--- NOTE | 2021-04-02 02:43 | PN ---
SHEY Physician - Brief Progress [id number]/07/2021 02:42[facility] [place] - JESSICA (UMAIR) - NAOMIE ALBARRAN, SAMMY+Date of Service 04/02/2021 02:42HPI/ Events of Note eICUDesaturating on CPAPSwitched over to BiPAPMaximized EPAP pressure for oxygenationI f fails, will need to be intubatedInterventions Major-Respiratory failure - evaluation and management
[2021-04-02 06:32] LABS: BLOOD UREA NITROGEN,BUN 18 mg/dL (7.0-18.0); CARBON DIOXIDE,CO2 30.6 mmol/L (21.0-32.0); CHLORIDE,CL 99 mmol/L (98-107); GLUCOSE RANDOM 112 mg/dL (74-106); SODIUM,NA 138 mmol/L (136-148)
--- NOTE | 2021-04-02 07:51 | CR ---
INDICATION: Respiratory deterioration. TECHNIQUE: Chest 1 view. COMPARISON: Chest radiograph 03/28/2021. FINDINGS: Significantly increased diffuse ground-glass and interstitial opacities throughout the lungs bilaterally. No large effusions. No pneumothorax. Normal heart size. Prominence of the upper mediastinum could be related to lymphadenopathy or vascular structures. The bones are unremarkable. IMPRESSION: 1. Significantly increased diffuse ground-glass and interstitial opacities throughout the lungs bilaterally. 2. Prominence of the upper mediastinum could be related to lymphadenopathy or vascular structures. Dictated by Concetta Edwards MD @ 04/02/2021 7:50:15 AM (Electronically Signed)
[2021-04-02] MEDS: Dexamethasone 4 MG/ML SDV IVPUSH SCH (08:06)
[2021-04-02] MEDS: Enoxaparin 40 MG/0.4 ML Syringe SUBCUT SCH ×2 (08:07→21:15)
[2021-04-02] MEDS ORDERED: propofoL 100 ML ONE ×2 (09:07→14:49)
--- NOTE | 2021-04-02 09:20 | PN ---
SHEY Physician - Brief Progress [id number]/07/2021 09:05[facility] [place] - JESSICA (UMAIR) - TIMN ICUCANTPablo, NAOMIE Toussaint, COVID+Date of Service 04/02/2021 09:05HPI/ Events of Note eICU progress noteActive problems:1. Acute hypoxemic respiratory failure2. Severe AR DS3. Severe COVID-19 pneumonia4. Morbid obesity BMI 43Patient's height 180 cmIdeal body weight 75 k gLast 24-hour events:Clinical condition deteriorating currently on BiPAP 18/15 100% FiO2. Respirator y distress required starting Precedex. He is on dexamethasone and baricitinib. Oxygen saturation de spite maximum medical therapy remains around 84 to 86%. Average fluid balance has been net -[address] Jay discussed the clinical deterioration with the patient who agreed for intubation and m echanical ventilation.Vitals:T 36.4 xC, BP 113/76, P1 113, RR 31, SPO2 85% on 100% FiO2 on BiPAP 18/1 5Patient was seen by E care cameraChart, labs and images reviewedABG: pH 7.47, PCO2 47, PO2 43, bicar b 35 (P/F ratio 43)Sodium 138, potassium 5.0, chloride 99, bicarb 30, BUN 18, creatinine 0.7, magnesi um 2.6, AST 61, ALT 56Chest x-ray shows diffuse bilateral pulmonary infiltrates/ARDSeICU recommendati ons:-Case discussed with Dr. Jay.-The patient had exhausted medical therapy and noninvasive ventilati on treatment modality, he needs intubation, mechanical ventilation with low tidal volume (to 6 mL/kg = 450 mL) titrate PEEP and FiO2 to achieve SPO2 > 90%-Patient will need full medical support with sed ation (propofol and fentanyl) titrate for goal RASS -3 to -4 and initiation of neuromuscular blockers (Nimbex drip or rocuronium drip) pending availability, repeat ABG following intubation and consider proning if P/F ratio <150-Levophed for hemodynamic support-Blood culture, respiratory culture, CRP, p rocalcitonin, start broad-spectrum antibiotics (vancomycin and Zosyn) recommended-Continue dexamethas one, continue baricitinib, DVT prophylaxis Lovenox 40 mg subcutaneous twice daily-Maintain fluid kelly nce euvolemic to negative-Isolation protocols for COVID-19 as per hospital policy-The patient will ve ry likely need central line and arterial line placement-Recommended once the patient is stabilized fo r transfer to tertiary care facility for higher level of careInterventions Major-Respiratory failure - evaluation and management
--- NOTE | 2021-04-02 09:26 | PCM.SN.2 ---
- Free Text/Narrative Note: Patient switched from CPAP to BiPAP with max pressure settings and FiO2 of 100%. Thereafter patient saturating anywhere from 85 to 89%, patient is comfortable, tolerating BiPAP well but any slight movement patient's saturations dropped very quickly. , given that he is barely able to keep his saturations up on max s ettings of BiPAP, and worsening of the chest x-ray, tachycardia and tachypnea impending respiratory arrest, patient will need to be intubated secondary to acute hypoxic respiratory failure due to COVID-19 pneumonia. eICU on board and agrees with intubation. Patient has been explained the need for intubation as well, family updated yesterday, will get an updated call today as well. We have tried calling multiple facilities for an ICU bed but so far no beds are available in view of the ongoing pandemic, we will keep on making the calls and as soon as a bed is available we will try to transfer the patient post intubation. Anesthesia has been called and they will be coming in shortly to intubate the patient. Time Documentation
[2021-04-02] MEDS ORDERED: fentaNYL 100 MCG/2 ML SDV ONE ×2 (11:41→13:06)
[2021-04-02] MEDS ORDERED: fentaNYL 100 MCG/2 ML SDV IVPUSH PRN (11:43)
[2021-04-02] MEDS ORDERED: fentaNYL/Normal Saline 2,500 MCG in Premix Bag 1 BAG IV ONE (11:45)
--- NOTE | 2021-04-02 11:46 | PCM.PN ---
- General Info Date of Service: 04/02/21 - Patient Data Vitals - Most Recent: Last Vital Signs Temp 97.6 F 04/02/21 04:00 Pulse 79 03/25/21 19:12 Resp 30 H 04/02/21 10:00 BP 116/77 04/02/21 10:00 Pulse Ox 84 L 04/02/21 10:00 Weight - Most Recent: 313 lb 13.777 oz I&O - Last 24 Hours: Intake & Output 04/01/21 04/02/21 04/02/21 22:59 06:59 14:59 Intake Total 1130 650 Output Total 1200 750 Balance -70 -100 Lab Results Last 24 Hours: Laboratory Results - last 24 hr 04/02/21 04/02/21 04/02/21 Range/Units 03:50 05:48 05:48 WBC 17.06 H (4.0-11.0) K/uL RBC 4.62 (4.50-5.90) M/uL Hgb 14.7 (13.0-17.0) g/dL Hct 45.0 (38.0-50.0) % MCV 97.4 (80.0-98.0) fL MCH 31.8 (27.0-32.0) pg MCHC 32.7 (31.0-37.0) g/dL RDW Std Deviation 48.2 (28.0-62.0) fl RDW Coeff of Kavon 14 (11.0-15.0) % Plt Count 158 (150-400) K/uL MPV 11.40 (7.40-12.00) fL Add Manual Diff YES Neutrophils % (Manual) 95 H (48.0-80.0) % Lymphocytes % (Manual) 1 L (16.0-40.0) % Monocytes % (Manual) 3 (0.0-15.0) % Metamyelocytes % 1 % Nucleated RBC % 0.0 /100WBC Absolute Seg Neuts 16.2 H (1.4-5.7) Lymphocytes # (Manual) 0.2 L (0.6-2.4) Monocytes # (Manual) 0.5 (0.0-0.8) Absolute Metamyelocyte 0.2 Nucleated RBCs # 0 K/uL ABG pH 7.48 H (7.35-7.45) ABG pCO2 46 H (35-45) mmHG ABG pO2 46 L (80-105) mmHG ABG HCO3 34 H (22-26) mEq/L ABG Total CO2 30.0 H (23-27) mmol/L ABG Base Excess 9.4 H (-2.0-3.0) Sodium 138 (136-148) mmol/L Potassium 5.0 (3.5-5.1) mmol/L Chloride 99 (98-107) mmol/L Carbon Dioxide 30.6 (21.0-32.0) mmol/L BUN 18 (7.0-18.0) mg/dL Creatinine 0.7 L (0.8-1.3) mg/dL Est Cr Clr Drug Dosing 137.45 mL/min Estimated GFR (MDRD) > 60.0 ml/min Glucose 112 H (74-106) mg/dL Calcium 7.5 L (8.5-10.1) mg/dL Magnesium (1.8-2.4) mg/dL Total Bilirubin 1.7 H (0.2-1.0) mg/dL AST 61 H (15-37) IU/L ALT 56 (14-63) IU/L Alkaline Phosphatase 89 (46-116) U/L Total Protein 6.7 (6.4-8.2) g/dL Albumin 2.1 L (3.4-5.0) g/dL Globulin 4.6 H (2.6-4.0) g/dL Albumin/Globulin Ratio 0.5 L (0.9-1.6) 04/02/21 04/02/21 Range/Units 05:48 06:00 WBC (4.0-11.0) K/uL RBC (4.50-5.90) M/uL Hgb (13.0-17.0) g/dL Hct (38.0-50.0) % MCV (80.0-98.0) fL MCH (27.0-32.0) pg MCHC (31.0-37.0) g/dL RDW Std Deviation (28.0-62.0) fl RDW Coeff of Kavon (11.0-15.0) % Plt Count (150-400) K/uL MPV (7.40-12.00) fL Add Manual Diff Neutrophils % (Manual) (48.0-80.0) % Lymphocytes % (Manual) (16.0-40.0) % Monocytes % (Manual) (0.0-15.0) % Metamyelocytes % % Nucleated RBC % /100WBC Absolute Seg Neuts (1.4-5.7) Lymphocytes # (Manual) (0.6-2.4) Monocytes # (Manual) (0.0-0.8) Absolute Metamyelocyte Nucleated RBCs # K/uL ABG pH 7.47 H (7.35-7.45) ABG pCO2 47 H (35-45) mmHG ABG pO2 43 L (80-105) mmHG ABG HCO3 35 H (22-26) mEq/L ABG Total CO2 29.9 H (23-27) mmol/L ABG Base Excess 9.2 H (-2.0-3.0) Sodium (136-148) mmol/L Potassium (3.5-5.1) mmol/L Chloride (98-107) mmol/L Carbon Dioxide (21.0-32.0) mmol/L BUN (7.0-18.0) mg/dL Creatinine (0.8-1.3) mg/dL Est Cr Clr Drug Dosing mL/min Estimated GFR (MDRD) ml/min Glucose (74-106) mg/dL Calcium (8.5-10.1) mg/dL Magnesium 2.6 H (1.8-2.4) mg/dL Total Bilirubin (0.2-1.0) mg/dL AST (15-37) IU/L ALT (14-63) IU/L Alkaline Phosphatase (46-116) U/L Total Protein (6.4-8.2) g/dL Albumin (3.4-5.0) g/dL Globulin (2.6-4.0) g/dL Albumin/Globulin Ratio (0.9-1.6) Med Orders - Current: Current Medications Albuterol/Ipratropium (Albuterol/Ipratropium 3.0-0.5 Mg/3 Ml Neb Soln) 3 ml NEB Q4HRRT MARCO A Last Admin: 04/02/21 11:21 Dose: 3 ml Documented by: Benzonatate (Benzonatate 100 Mg Cap) 100 mg PO Q6H PRN PRN Reason: Cough Last Admin: 04/01/21 23:04 Dose: 100 mg Documented by: Dexamethasone (Dexamethasone 4 Mg/Ml Sdv) 6 mg IVPUSH DAILY [facility] Last Admin: 04/02/21 08:06 Dose: 6 mg Documented by: Enoxaparin Sodium (Enoxaparin 40 Mg/0.4 Ml Syringe) 40 mg SUBCUT Q12HR [facility] Last Admin: 04/02/21 08:07 Dose: 40 mg Documented by: Fentanyl (Fentanyl 100 Mcg/2 Ml Sdv) 50 mcg IVPUSH Q5M PRN PRN Reason: Pain Guaifenesin/Codeine Phosphate (Codeine/Guaifenesin 10-100 Mg/5 Ml Syrup 5 Ml Cup) 5 ml PO Q4H PRN PRN Reason: Cough Last Admin: 04/01/21 21:16 Dose: 5 ml Documented by: Pantoprazole Sodium 40 mg/ (Sodium Chloride) 10 mls @ 300 mls/hr IV Q24H [facility] Last Admin: 04/01/21 16:50 Dose: 300 mls/hr Documented by: Dexmedetomidine/Sodium (Chloride 400 mcg/ Premix) 100 mls @ 7.118 mls/hr IV .Q14H3M [facility]; Protocol Last Admin: 04/02/21 02:49 Dose: 0.3 mcg/kg/hr, 10.677 mls/hr Documented by: Fentanyl Citrate 2,500 mcg/ (Premix) 250 mls @ 14.237 mls/hr IV TITRATE [facility]; Protocol Sodium Chloride (Sodium Chloride 0.65% Nasal Rhodell 45 Ml Bottle) 0 ml KANDIS Q4H PRN PRN Reason: nasal congestion Last Admin: 03/28/21 01:10 Dose: 1 spray Documented by: Discontinued Medications Albuterol/Ipratropium (Albuterol/Ipratropium 4 Gm Inhalation Rhodell) 1 gm INH Q4HRRT PRN PRN Reason: Dyspnea Dexamethasone (Dexamethasone 10 Mg/Ml Sdv) 6 mg IVPUSH ONETIME ONE Stop: 03/25/21 12:44 Last Admin: 03/25/21 13:06 Dose: 6 mg Documented by: Dexamethasone (Dexamethasone 4 Mg Tab) 6 mg PO DAILY [facility] Last Admin: 03/26/21 12:42 Dose: 6 mg Documented by: Fentanyl (Fentanyl 100 Mcg/2 Ml Sdv) Confirm Administered Dose 100 mcg .ROUTE .STK-MED ONE Stop: 04/02/21 11:42 Furosemide (Furosemide 40 Mg/4 Ml Vial) 40 mg IVPUSH NOW ONE Stop: 03/28/21 23:30 Last Admin: 03/28/21 23:46 Dose: 40 mg Documented by: Guaifenesin/Dextromethorphan (Guaifenesin/Dextromethorphan 100-10 Mg/5 Ml Soln 10 Ml Cup) 10 ml PO Q4H PRN PRN Reason: Cough Last Admin: 03/27/21 10:26 Dose: 10 ml Documented by: Guaifenesin/Dextromethorphan (Guaifenesin/Dextromethorphan 100-10 Mg/5 Ml Soln 10 Ml Cup) 10 ml PO Q4H MARCO A Guaifenesin/Dextromethorphan (Guaifenesin/Dextromethorphan 100-10 Mg/5 Ml Soln 10 Ml Cup) 10 ml PO Q4H MARCO A Last Admin: 03/28/21 05:56 Dose: 10 ml Documented by: Remdesivir 200 mg/ Sodium (Chloride) 250 mls @ 250 mls/hr IV ONETIME ONE Stop: 03/25/21 17:29 Last Admin: 03/25/21 17:19 Dose: 250 mls/hr Documented by: Remdesivir 100 mg/ Sodium (Chloride) 100 mls @ 100 mls/hr IV Q24H MARCO A Stop: 03/29/21 18:29 Last Admin: 03/29/21 17:18 Dose: 100 mls/hr Documented by: Propofol (Diprivan 100 Ml) Confirm Administered Dose 100 mls @ as directed .ROUTE .STK-MED ONE Stop: 04/02/21 09:08 Norepinephrine Bitartrate (Norepinephr-0.9% Nacl 4 Mg/250) Confirm Administered Dose 4 mg in 250 mls @ as directed IV .STK-MED ONE Stop: 04/02/21 09:09 Iopamidol (Iopamidol 755 Mg/Ml 500 Ml Multipack Bottle) 100 ml IVPUSH ONETIME STA Stop: 03/26/21 01:46 Last Admin: 03/26/21 01:46 Dose: 100 ml Documented by: Ketorolac Tromethamine (Ketorolac 15 Mg/Ml Sdv) 15 mg IVPUSH ONETIME ONE Stop: 03/25/21 12:44 Last Admin: 03/25/21 13:06 Dose: 15 mg Documented by: Morphine Sulfate (Morphine 2 Mg/Ml Syringe) 2 mg IVPUSH ONETIME ONE Stop: 03/28/21 23:25 Last Admin: 03/28/21 23:45 Dose: 2 mg Documented by: Wound Care/Dressing Products (Hydrocolloid Dressing 4x4 Bandage) Confirm Administered Dose 1 each .ROUTE .STK-MED ONE Stop: 04/01/21 23:12 Last Admin: 04/01/21 23:49 Dose: 1 each Documented by: - Exam Urinary Catheter Total Time: 4Days 10Hours - Patient Data Lab Results Last 24 hrs: Laboratory Results - last 24 hr 04/02/21 04/02/21 04/02/21 Range/Units 03:50 05:48 05:48 WBC 17.06 H (4.0-11.0) K/uL RBC 4.62 (4.50-5.90) M/uL Hgb 14.7 (13.0-17.0) g/dL Hct 45.0 (38.0-50.0) % MCV 97.4 (80.0-98.0) fL MCH 31.8 (27.0-32.0) pg MCHC 32.7 (31.0-37.0) g/dL RDW Std Deviation 48.2 (28.0-62.0) fl RDW Coeff of Kavon 14 (11.0-15.0) % Plt Count 158 (150-400) K/uL MPV 11.40 (7.40-12.00) fL Add Manual Diff YES Neutrophils % (Manual) 95 H (48.0-80.0) % Lymphocytes % (Manual) 1 L (16.0-40.0) % Monocytes % (Manual) 3 (0.0-15.0) % Metamyelocytes % 1 % Nucleated RBC % 0.0 /100WBC Absolute Seg Neuts 16.2 H (1.4-5.7) Lymphocytes # (Manual) 0.2 L (0.6-2.4) Monocytes # (Manual) 0.5 (0.0-0.8) Absolute Metamyelocyte 0.2 Nucleated RBCs # 0 K/uL ABG pH 7.48 H (7.35-7.45) ABG pCO2 46 H (35-45) mmHG ABG pO2 46 L (80-105) mmHG ABG HCO3 34 H (22-26) mEq/L ABG Total CO2 30.0 H (23-27) mmol/L ABG Base Excess 9.4 H (-2.0-3.0) Sodium 138 (136-148) mmol/L Potassium 5.0 (3.5-5.1) mmol/L Chloride 99 (98-107) mmol/L Carbon Dioxide 30.6 (21.0-32.0) mmol/L BUN 18 (7.0-18.0) mg/dL Creatinine 0.7 L (0.8-1.3) mg/dL Est Cr Clr Drug Dosing 137.45 mL/min Estimated GFR (MDRD) > 60.0 ml/min Glucose 112 H (74-106) mg/dL Calcium 7.5 L (8.5-10.1) mg/dL Magnesium (1.8-2.4) mg/dL Total Bilirubin 1.7 H (0.2-1.0) mg/dL AST 61 H (15-37) IU/L ALT 56 (14-63) IU/L Alkaline Phosphatase 89 (46-116) U/L Total Protein 6.7 (6.4-8.2) g/dL Albumin 2.1 L (3.4-5.0) g/dL Globulin 4.6 H (2.6-4.0) g/dL Albumin/Globulin Ratio 0.5 L (0.9-1.6) 04/02/21 04/02/21 Range/Units 05:48 06:00 WBC (4.0-11.0) K/uL RBC (4.50-5.90) M/uL Hgb (13.0-17.0) g/dL Hct (38.0-50.0) % MCV (80.0-98.0) fL MCH (27.0-32.0) pg MCHC (31.0-37.0) g/dL RDW Std Deviation (28.0-62.0) fl RDW Coeff of Kavon (11.0-15.0) % Plt Count (150-400) K/uL MPV (7.40-12.00) fL Add Manual Diff Neutrophils % (Manual) (48.0-80.0) % Lymphocytes % (Manual) (16.0-40.0) % Monocytes % (Manual) (0.0-15.0) % Metamyelocytes % % Nucleated RBC % /100WBC Absolute Seg Neuts (1.4-5.7) Lymphocytes # (Manual) (0.6-2.4) Monocytes # (Manual) (0.0-0.8) Absolute Metamyelocyte Nucleated RBCs # K/uL ABG pH 7.47 H (7.35-7.45) ABG pCO2 47 H (35-45) mmHG ABG pO2 43 L (80-105) mmHG ABG HCO3 35 H (22-26) mEq/L ABG Total CO2 29.9 H (23-27) mmol/L ABG Base Excess 9.2 H (-2.0-3.0) Sodium (136-148) mmol/L Potassium (3.5-5.1) mmol/L Chloride (98-107) mmol/L Carbon Dioxide (21.0-32.0) mmol/L BUN (7.0-18.0) mg/dL Creatinine (0.8-1.3) mg/dL Est Cr Clr Drug Dosing mL/min Estimated GFR (MDRD) ml/min Glucose (74-106) mg/dL Calcium (8.5-10.1) mg/dL Magnesium 2.6 H (1.8-2.4) mg/dL Total Bilirubin (0.2-1.0) mg/dL AST (15-37) IU/L ALT (14-63) IU/L Alkaline Phosphatase (46-116) U/L Total Protein (6.4-8.2) g/dL Albumin (3.4-5.0) g/dL Globulin (2.6-4.0) g/dL Albumin/Globulin Ratio (0.9-1.6) Result Diagrams: 04/02/21 05:48 04/02/21 05:48 Sepsis Event Note - Evaluation Sepsis Screening Result: Severe Sepsis Risk - Focused Exam Vital Signs: Vital Signs Temp Resp BP Pulse Ox 04/02/21 10:00 30 H 116/77 84 L 04/02/21 09:00 26 H 121/87 84 L 04/02/21 08:00 28 H 127/91 H 87 L 04/02/21 07:00 31 H 113/76 86 L 04/02/21 06:00 29 H 113/83 84 L 04/02/21 05:00 30 H 103/76 83 L 04/02/21 04:00 97.6 F 29 H 109/68 86 L 04/02/21 03:00 34 H 135/87 83 L 04/02/21 02:00 32 H 124/77 85 L 04/02/21 01:00 97.5 F 29 H 110/77 83 L 04/02/21 00:00 28 H 131/94 H 84 L - Problem List & Annotations (1) COVID-19 SNOMED Code(s): 972569311 Code(s): U07.1 - COVID-19 Status: Acute Current Visit: Yes (2) Obesity SNOMED Code(s): 150298563, 156943388 Code(s): E66.9 - OBESITY, UNSPECIFIED Status: Acute Current Visit: Yes (3) Anxiety about health SNOMED Code(s): 699593640 Code(s): F41.8 - OTHER SPECIFIED ANXIETY DISORDERS Status: Acute Current Visit: Yes - My Orders Last 24 Hours: My Active Orders 04/02/21 11:10 CXR [Chest 1V Frontal] [CR] Stat 04/03/21 05:11 CBC WITH AUTO DIFF [HEME] AM CMP [COMPREHENSIVE METABOLIC PN,CMP] [CHEM] AM - Assessment Assessment:: 1. Acute respiratory failure secondary to COVID-19 pneumonia -The patient is currently on CPAP, flow rate of 10, FiO2 of 100, respiratory rate of 33, saturating at 92%. We will continue to wean this patient as appropriate. -We will continue the patient on dexamethasone 6 mg p.o. once a day. -For cough and congestion, the patient has been put on Robitussin AC and benzona de la fuente. -For shortness of breath, the patient has been placed on duo nebs every 4 hours scheduled. -Continue baricitinib treatment, 4 mg per oral route -Daily CBC/CMP. 2. Anxiety/Agitation -The patient has anxiolytic Precedex on board - Plan Plan:: I have seen and evaluated the patient and agree with the residents note unless specified in my note
[2021-04-02] MEDS: fentaNYL/Normal Saline 2,500 MCG in Premix Bag 1 BAG IV SCH ×2 (12:00→23:50)
--- NOTE | 2021-04-02 12:00 | CR ---
Indication: Endotracheal tube placement. Technique: Chest 1 view. Comparison: April 02, 2021. Findings/Impression: Cardiovascular and mediastinum: Endotracheal tube is 3 cm above the danni. Heart borders are obscured by pulmonary infiltrates. Lungs and pleural space: Diffuse severe pulmonary infiltrates are unchanged in a pattern suggesting ARDS. No pneumothorax. Bones and soft tissues: No acute findings. Dictated by Ibrahima Kim MD @ 04/02/2021 12:00:03 PM (Electronically Signed)
--- NOTE | 2021-04-02 12:01 | PCM.PN ---
- General Info Date of Service: 04/02/21 Subjective Update: The patient is a 50-year-old male, on day 7 of service, with a significant past medical history of obesity with a BMI over 41, who was admitted to the intensive care unit for acute respiratory failure secondary to COVID-19 pneumonia. The patient's clinical status is deteriorating progressively. This morning he was on BiPAP with an FiO2 of 100 and saturating at 84%. I had a chance to speak with eICU physician Dr. Reese who recommended that we intubate this patient and have a central line placed. He suggested we have pharmacy, anesthesiology, and the nurses here in the hospital all on board for such a procedure to take place. I talked to the patient this morning and laid out the benefits of having an intubation procedure done seeing as his oxygen demand is increasing and he agreed. With respect to his complaints from this morning, Mr. Valera has shortness of breath and anxiety but reports nothing else. Subsequently to this, I spoke to anesthesiology, and both Evgeny and Dr. Sheldon agreed to be involved in this patient's case and the intubation procedure. I made the of the patient aware that intubation was necessary at this point due to a failing rise in oxygen. She agreed and will be driving to [place] from [place] in order to complete paperwork for her with respect to his occupation here in [place], and in hopes to find out where her will be placed after a bed has been found. I spoke to the [facility] transfer odin in regards to placement for Mr. Valera, however they have not yet found a bed but will get back to me as soon as one is available. With respect to the intubation procedure, Dr. Sheldon from anesthesiology, Nessa from respiratory therapy, Charlene an ICU nurse, myself from the adult medicine service team, and other staff were all involved in intubating this patient which took place at 10:30 AM this morning. The patient's vent settings initially were set to a PEEP of 15, oxygen of 100, assist control frequency of 18, which led to an O2 saturation of over 82%. The settings will have to be adjusted in order to prevent barotrauma, pneumothorax, and to promote optimal oxygenation. eICU over the monitor in ICU room 1 have been involved in adjusting vent settings. The x- ray team also came in and performed an x-ray to check for proper placement. As of now the patient is fully intubated and we will monitor him for any changes that need to be made. - Review of Systems General: Denies: Weakness, Fatigue HEENT: Denies: Headaches Pulmonary: Reports: Shortness of Breath. Denies: Cough Cardiovascular: Denies: Chest Pain, Palpitations Gastrointestinal: Denies: Abdominal Pain Genitourinary: Denies: Dysuria Psychiatric: Reports: Anxiety - Patient Data Vitals - Most Recent: Last Vital Signs Temp 97.6 F 04/02/21 04:00 Pulse 79 03/25/21 19:12 Resp 30 H 04/02/21 10:00 BP 116/77 04/02/21 10:00 Pulse Ox 84 L 04/02/21 10:00 Weight - Most Recent: 313 lb 13.777 oz I&O - Last 24 Hours: Intake & Output 04/01/21 04/02/21 04/02/21 22:59 06:59 14:59 Intake Total 1130 650 Output Total 1200 750 Balance -70 -100 Lab Results Last 24 Hours: Laboratory Results - last 24 hr 04/02/21 04/02/21 04/02/21 Range/Units 03:50 05:48 05:48 WBC 17.06 H (4.0-11.0) K/uL RBC 4.62 (4.50-5.90) M/uL Hgb 14.7 (13.0-17.0) g/dL Hct 45.0 (38.0-50.0) % MCV 97.4 (80.0-98.0) fL MCH 31.8 (27.0-32.0) pg MCHC 32.7 (31.0-37.0) g/dL RDW Std Deviation 48.2 (28.0-62.0) fl RDW Coeff of Kavon 14 (11.0-15.0) % Plt Count 158 (150-400) K/uL MPV 11.40 (7.40-12.00) fL Add Manual Diff YES Neutrophils % (Manual) 95 H (48.0-80.0) % Lymphocytes % (Manual) 1 L (16.0-40.0) % Monocytes % (Manual) 3 (0.0-15.0) % Metamyelocytes % 1 % Nucleated RBC % 0.0 /100WBC Absolute Seg Neuts 16.2 H (1.4-5.7) Lymphocytes # (Manual) 0.2 L (0.6-2.4) Monocytes # (Manual) 0.5 (0.0-0.8) Absolute Metamyelocyte 0.2 Nucleated RBCs # 0 K/uL ABG pH 7.48 H (7.35-7.45) ABG pCO2 46 H (35-45) mmHG ABG pO2 46 L (80-105) mmHG ABG HCO3 34 H (22-26) mEq/L ABG Total CO2 30.0 H (23-27) mmol/L ABG Base Excess 9.4 H (-2.0-3.0) Sodium 138 (136-148) mmol/L Potassium 5.0 (3.5-5.1) mmol/L Chloride 99 (98-107) mmol/L Carbon Dioxide 30.6 (21.0-32.0) mmol/L BUN 18 (7.0-18.0) mg/dL Creatinine 0.7 L (0.8-1.3) mg/dL Est Cr Clr Drug Dosing 137.45 mL/min Estimated GFR (MDRD) > 60.0 ml/min Glucose 112 H (74-106) mg/dL Calcium 7.5 L (8.5-10.1) mg/dL Magnesium (1.8-2.4) mg/dL Total Bilirubin 1.7 H (0.2-1.0) mg/dL AST 61 H (15-37) IU/L ALT 56 (14-63) IU/L Alkaline Phosphatase 89 (46-116) U/L Total Protein 6.7 (6.4-8.2) g/dL Albumin 2.1 L (3.4-5.0) g/dL Globulin 4.6 H (2.6-4.0) g/dL Albumin/Globulin Ratio 0.5 L (0.9-1.6) 04/02/21 04/02/21 Range/Units 05:48 06:00 WBC (4.0-11.0) K/uL RBC (4.50-5.90) M/uL Hgb (13.0-17.0) g/dL Hct (38.0-50.0) % MCV (80.0-98.0) fL MCH (27.0-32.0) pg MCHC (31.0-37.0) g/dL RDW Std Deviation (28.0-62.0) fl RDW Coeff of Kavon (11.0-15.0) % Plt Count (150-400) K/uL MPV (7.40-12.00) fL Add Manual Diff Neutrophils % (Manual) (48.0-80.0) % Lymphocytes % (Manual) (16.0-40.0) % Monocytes % (Manual) (0.0-15.0) % Metamyelocytes % % Nucleated RBC % /100WBC Absolute Seg Neuts (1.4-5.7) Lymphocytes # (Manual) (0.6-2.4) Monocytes # (Manual) (0.0-0.8) Absolute Metamyelocyte Nucleated RBCs # K/uL ABG pH 7.47 H (7.35-7.45) ABG pCO2 47 H (35-45) mmHG ABG pO2 43 L (80-105) mmHG ABG HCO3 35 H (22-26) mEq/L ABG Total CO2 29.9 H (23-27) mmol/L ABG Base Excess 9.2 H (-2.0-3.0) Sodium (136-148) mmol/L Potassium (3.5-5.1) mmol/L Chloride (98-107) mmol/L Carbon Dioxide (21.0-32.0) mmol/L BUN (7.0-18.0) mg/dL Creatinine (0.8-1.3) mg/dL Est Cr Clr Drug Dosing mL/min Estimated GFR (MDRD) ml/min Glucose (74-106) mg/dL Calcium (8.5-10.1) mg/dL Magnesium 2.6 H (1.8-2.4) mg/dL Total Bilirubin (0.2-1.0) mg/dL AST (15-37) IU/L ALT (14-63) IU/L Alkaline Phosphatase (46-116) U/L Total Protein (6.4-8.2) g/dL Albumin (3.4-5.0) g/dL Globulin (2.6-4.0) g/dL Albumin/Globulin Ratio (0.9-1.6) Med Orders - Current: Current Medications Albuterol/Ipratropium (Albuterol/Ipratropium 3.0-0.5 Mg/3 Ml Neb Soln) 3 ml NEB Q4HRRT [facility] Last Admin: 04/02/21 11:21 Dose: 3 ml Documented by: Benzonatate (Benzonatate 100 Mg Cap) 100 mg PO Q6H PRN PRN Reason: Cough Last Admin: 04/01/21 23:04 Dose: 100 mg Documented by: Dexamethasone (Dexamethasone 4 Mg/Ml Sdv) 6 mg IVPUSH DAILY [facility] Last Admin: 04/02/21 08:06 Dose: 6 mg Documented by: Enoxaparin Sodium (Enoxaparin 40 Mg/0.4 Ml Syringe) 40 mg SUBCUT Q12HR [facility] Last Admin: 04/02/21 08:07 Dose: 40 mg Documented by: Fentanyl (Fentanyl 100 Mcg/2 Ml Sdv) 50 mcg IVPUSH Q5M PRN PRN Reason: Pain Guaifenesin/Codeine Phosphate (Codeine/Guaifenesin 10-100 Mg/5 Ml Syrup 5 Ml Cup) 5 ml PO Q4H PRN PRN Reason: Cough Last Admin: 04/01/21 21:16 Dose: 5 ml Documented by: Pantoprazole Sodium 40 mg/ (Sodium Chloride) 10 mls @ 300 mls/hr IV Q24H [facility] Last Admin: 04/01/21 16:50 Dose: 300 mls/hr Documented by: Dexmedetomidine/Sodium (Chloride 400 mcg/ Premix) 100 mls @ 7.118 mls/hr IV .Q14H3M [facility]; Protocol Last Admin: 04/02/21 02:49 Dose: 0.3 mcg/kg/hr, 10.677 mls/hr Documented by: Fentanyl Citrate 2,500 mcg/ (Premix) 250 mls @ 14.237 mls/hr IV TITRATE [facility]; Protocol Sodium Chloride (Sodium Chloride 0.65% Nasal [place] 45 Ml Bottle) 0 ml KANDIS Q4H PRN PRN Reason: nasal congestion Last Admin: 03/28/21 01:10 Dose: 1 spray Documented by: Discontinued Medications Albuterol/Ipratropium (Albuterol/Ipratropium 4 Gm Inhalation [place]) 1 gm INH Q4HRRT PRN PRN Reason: Dyspnea Dexamethasone (Dexamethasone 10 Mg/Ml Sdv) 6 mg IVPUSH ONETIME ONE Stop: 03/25/21 12:44 Last Admin: 03/25/21 13:06 Dose: 6 mg Documented by: Dexamethasone (Dexamethasone 4 Mg Tab) 6 mg PO DAILY [facility] Last Admin: 03/26/21 12:42 Dose: 6 mg Documented by: Fentanyl (Fentanyl 100 Mcg/2 Ml Sdv) Confirm Administered Dose 100 mcg .ROUTE .STK-MED ONE Stop: 04/02/21 11:42 Furosemide (Furosemide 40 Mg/4 Ml Vial) 40 mg IVPUSH NOW ONE Stop: 03/28/21 23:30 Last Admin: 03/28/21 23:46 Dose: 40 mg Documented by: Guaifenesin/Dextromethorphan (Guaifenesin/Dextromethorphan 100-10 Mg/5 Ml Soln 10 Ml Cup) 10 ml PO Q4H PRN PRN Reason: Cough Last Admin: 03/27/21 10:26 Dose: 10 ml Documented by: Guaifenesin/Dextromethorphan (Guaifenesin/Dextromethorphan 100-10 Mg/5 Ml Soln 10 Ml Cup) 10 ml PO Q4H [place] [facility] Guaifenesin/Dextromethorphan (Guaifenesin/Dextromethorphan 100-10 Mg/5 Ml Soln 10 Ml Cup) 10 ml PO Q4H [facility] Last Admin: 03/28/21 05:56 Dose: 10 ml Documented by: Remdesivir 200 mg/ Sodium (Chloride) 250 mls @ 250 mls/hr IV ONETIME ONE Stop: 03/25/21 17:29 Last Admin: 03/25/21 17:19 Dose: 250 mls/hr Documented by: Remdesivir 100 mg/ Sodium (Chloride) 100 mls @ 100 mls/hr IV Q24H [place] [facility] Stop: 03/29/21 18:29 Last Admin: 03/29/21 17:18 Dose: 100 mls/hr Documented by: Propofol (Diprivan 100 Ml) Confirm Administered Dose 100 mls @ as directed .ROUTE .STK-MED ONE Stop: 04/02/21 09:08 Norepinephrine Bitartrate (Norepinephr-0.9% Nacl 4 Mg/250) Confirm Administered Dose 4 mg in 250 mls @ as directed IV .STK-MED ONE Stop: 04/02/21 09:09 Iopamidol (Iopamidol 755 Mg/Ml 500 Ml Multipack Bottle) 100 ml IVPUSH ONETIME STA Stop: 03/26/21 01:46 Last Admin: 03/26/21 01:46 Dose: 100 ml Documented by: Ketorolac Tromethamine (Ketorolac 15 Mg/Ml Sdv) 15 mg IVPUSH ONETIME ONE Stop: 03/25/21 12:44 Last Admin: 03/25/21 13:06 Dose: 15 mg Documented by: Morphine Sulfate (Morphine 2 Mg/Ml Syringe) 2 mg IVPUSH ONETIME ONE Stop: 03/28/21 23:25 Last Admin: 03/28/21 23:45 Dose: 2 mg Documented by: Wound Care/Dressing Products (Hydrocolloid Dressing 4x4 Bandage) Confirm Administered Dose 1 each .ROUTE .STK-MED ONE Stop: 04/01/21 23:12 Last Admin: 04/01/21 23:49 Dose: 1 each Documented by: - Exam Urinary Catheter Total Time: 4Days 10Hours General: Alert, Oriented HEENT: Mucous Membr. Moist/[place] Neck: Trachea Midline Lungs: Other (BiPAP in place upon physical exam this morning) Cardiovascular: Tachycardia GI/Abdominal Exam: Normal Bowel Sounds - Patient Data Lab Results Last 24 hrs: Laboratory Results - last 24 hr 04/02/21 04/02/21 04/02/21 Range/Units 03:50 05:48 05:48 WBC 17.06 H (4.0-11.0) K/uL RBC 4.62 (4.50-5.90) M/uL Hgb 14.7 (13.0-17.0) g/dL Hct 45.0 (38.0-50.0) % MCV 97.4 (80.0-98.0) fL MCH 31.8 (27.0-32.0) pg MCHC 32.7 (31.0-37.0) g/dL RDW Std Deviation 48.2 (28.0-62.0) fl RDW Coeff of Kavon 14 (11.0-15.0) % Plt Count 158 (150-400) K/uL MPV 11.40 (7.40-12.00) fL Add Manual Diff YES Neutrophils % (Manual) 95 H (48.0-80.0) % Lymphocytes % (Manual) 1 L (16.0-40.0) % Monocytes % (Manual) 3 (0.0-15.0) % Metamyelocytes % 1 % Nucleated RBC % 0.0 /100WBC Absolute Seg Neuts 16.2 H (1.4-5.7) Lymphocytes # (Manual) 0.2 L (0.6-2.4) Monocytes # (Manual) 0.5 (0.0-0.8) Absolute Metamyelocyte 0.2 Nucleated RBCs # 0 K/uL ABG pH 7.48 H (7.35-7.45) ABG pCO2 46 H (35-45) mmHG ABG pO2 46 L (80-105) mmHG ABG HCO3 34 H (22-26) mEq/L ABG Total CO2 30.0 H (23-27) mmol/L ABG Base Excess 9.4 H (-2.0-3.0) Sodium 138 (136-148) mmol/L Potassium 5.0 (3.5-5.1) mmol/L Chloride 99 (98-107) mmol/L Carbon Dioxide 30.6 (21.0-32.0) mmol/L BUN 18 (7.0-18.0) mg/dL Creatinine 0.7 L (0.8-1.3) mg/dL Est Cr Clr Drug Dosing 137.45 mL/min Estimated GFR (MDRD) > 60.0 ml/min Glucose 112 H (74-106) mg/dL Calcium 7.5 L (8.5-10.1) mg/dL Magnesium (1.8-2.4) mg/dL Total Bilirubin 1.7 H (0.2-1.0) mg/dL AST 61 H (15-37) IU/L ALT 56 (14-63) IU/L Alkaline Phosphatase 89 (46-116) U/L Total Protein 6.7 (6.4-8.2) g/dL Albumin 2.1 L (3.4-5.0) g/dL Globulin 4.6 H (2.6-4.0) g/dL Albumin/Globulin Ratio 0.5 L (0.9-1.6) 04/02/21 04/02/21 Range/Units 05:48 06:00 WBC (4.0-11.0) K/uL RBC (4.50-5.90) M/uL Hgb (13.0-17.0) g/dL Hct (38.0-50.0) % MCV (80.0-98.0) fL MCH (27.0-32.0) pg MCHC (31.0-37.0) g/dL RDW Std Deviation (28.0-62.0) fl RDW Coeff of Kavon (11.0-15.0) % Plt Count (150-400) K/uL MPV (7.40-12.00) fL Add Manual Diff Neutrophils % (Manual) (48.0-80.0) % Lymphocytes % (Manual) (16.0-40.0) % Monocytes % (Manual) (0.0-15.0) % Metamyelocytes % % Nucleated RBC % /100WBC Absolute Seg Neuts (1.4-5.7) Lymphocytes # (Manual) (0.6-2.4) Monocytes # (Manual) (0.0-0.8) Absolute Metamyelocyte Nucleated RBCs # K/uL ABG pH 7.47 H (7.35-7.45) ABG pCO2 47 H (35-45) mmHG ABG pO2 43 L (80-105) mmHG ABG HCO3 35 H (22-26) mEq/L ABG Total CO2 29.9 H (23-27) mmol/L ABG Base Excess 9.2 H (-2.0-3.0) Sodium (136-148) mmol/L Potassium (3.5-5.1) mmol/L Chloride (98-107) mmol/L Carbon Dioxide (21.0-32.0) mmol/L BUN (7.0-18.0) mg/dL Creatinine (0.8-1.3) mg/dL Est Cr Clr Drug Dosing mL/min Estimated GFR (MDRD) ml/min Glucose (74-106) mg/dL Calcium (8.5-10.1) mg/dL Magnesium 2.6 H (1.8-2.4) mg/dL Total Bilirubin (0.2-1.0) mg/dL AST (15-37) IU/L ALT (14-63) IU/L Alkaline Phosphatase (46-116) U/L Total Protein (6.4-8.2) g/dL Albumin (3.4-5.0) g/dL Globulin (2.6-4.0) g/dL Albumin/Globulin Ratio (0.9-1.6) Result Diagrams: 04/02/21 05:48 04/02/21 05:48 Sepsis Event Note - Evaluation Sepsis Screening Result: Severe Sepsis Risk - Focused Exam Vital Signs: Vital Signs Temp Resp BP Pulse Ox 04/02/21 10:00 30 H 116/77 84 L 04/02/21 09:00 26 H 121/87 84 L 04/02/21 08:00 28 H 127/91 H 87 L 04/02/21 07:00 31 H 113/76 86 L 04/02/21 06:00 29 H 113/83 84 L 04/02/21 05:00 30 H 103/76 83 L 04/02/21 04:00 97.6 F 29 H 109/68 86 L 04/02/21 03:00 34 H 135/87 83 L 04/02/21 02:00 32 H 124/77 85 L 04/02/21 01:00 97.5 F 29 H 110/77 83 L 04/02/21 00:00 28 H 131/94 H 84 L - Problem List & Annotations (1) COVID-19 SNOMED Code(s): 315715358 Code(s): U07.1 - COVID-19 Status: Acute Current Visit: Yes (2) Obesity SNOMED Code(s): 711089557, 626736486 Code(s): E66.9 - OBESITY, UNSPECIFIED Status: Acute Current Visit: Yes (3) Anxiety about health SNOMED Code(s): 298538312 Code(s): F41.8 - OTHER SPECIFIED ANXIETY DISORDERS Status: Acute Current Visit: Yes - Problem List Review Problem List Initiated/Reviewed/Updated: Yes - My Orders Last 24 Hours: My Active Orders 04/02/21 11:10 CXR [Chest 1V Frontal] [CR] Stat 04/03/21 05:11 CBC WITH AUTO DIFF [HEME] AM CMP [COMPREHENSIVE METABOLIC PN,CMP] [CHEM] AM - Assessment Assessment:: 1. Severe respiratory failure secondary to COVID-19 pneumonia -The patient was on BiPAP this morning but now has been intubated. -Succinyl choline, propofol, and fentanyl have been provided to the patient, and we will monitor his vitals and oxygen demand and treat him accordingly. -We will wait for callback from the [facility] in regards to an available bed, and transfer when appropriate. -Multiple providers including the adult medicine team, anesthesiology, eICU are involved in this patient's care and/or are collaborating with respect to ventilator settings that are optimal for this patient. -At some point a central line will have to be placed in case Norepinephrine or other medications need to be administered.
--- NOTE | 2021-04-02 12:16 | PCM.PR.CLI ---
Central Line Insertion - Central Line Insertion Site: internal jugular (R) Prep: CDC/MBT Guidelines, Sterile Drapes, Chlorhexidine Lumen: triple Gauge: 7Fr Ultrasound guided: No CL Complications: No Secured with suture: Yes Post placement confirmation: all ports aspirated, all ports flushed Dressing applied: by provider (R IJ easily place in sterile fashion. No complications. [id number])
[2021-04-02] MEDS ORDERED: Labetalol 100 MG/20 ML MDV IVPUSH ONE (12:19)
--- NOTE | 2021-04-02 12:35 | PCM.PR.ALI ---
Arterial Line Insertion - Arterial Line Insertion Arterial Line Indication: hemodynamic monitoring Site: radial (R) Prep: Chlorhexidine Gauge: 20Fr Ultrasound guided: No Secured with suture: No Dressing applied: by provider, chlorhexidine disc used Complications: No
--- NOTE | 2021-04-02 12:37 | PCM.PR.ETI ---
Endotracheal Intubation - Endotracheal Intubation Time of Intubation: 09:58 (covid pneumonia) ET Intubation Indication: Respiratory Failure Preparation: Suction, Balloon Tested, BVM Set Up, Difficult Airway Equip Airway Assessment: Obese, Large Tongue Pre-Oxygenation: Assisted with BVM, 100% FiO2 Anesthesia Meds: Propofol, Rocuronium Placement: Orotracheal Cords Visualized: Yes, Grade 1 ETT Size In mm: 8.0 (secured 23 at lip) Number of Attempts: 1 Confirmed By: CO2 Indicator, Bilateral Breath Sounds Tube Secured By: By Provider
[2021-04-02] MEDS ORDERED: Rocuronium Bromide 50 MG/5 ML Syringe IVPUSH ONE (13:15)
[2021-04-02] MEDS ORDERED: Midazolam 1 MG/ML 2 ML SDV IVPUSH ONE (13:17)
[2021-04-02] MEDS ORDERED: Midazolam 1 MG/ML 2 ML SDV ONE ×2 (13:19→13:23)
[2021-04-02] MEDS ORDERED: Midazolam 50 MG in Sodium Chloride 0.9% 40 ML IV SCH ×5 (13:30→13:45)
[2021-04-02] MEDS ORDERED: Midazolam 1 MG/ML 2 ML SDV IVPUSH PRN (13:39)
--- NOTE | 2021-04-02 13:51 | CR ---
INDICATION: Check central line and NGT placement. TECHNIQUE: Chest 1 view. COMPARISON: Chest radiograph 04/02/2021 at 11:09 a.m. FINDINGS: Endotracheal tube with tip 3.9 cm above the danni. Advancement of the enteric tube with tip now below the diaphragm. Placement of a right IJ CVC with tip in the mid SVC. Stable extensive bilateral pulmonary infiltrates. No large effusions. No pneumothorax. Stable heart size with mild prominence of the upper mediastinum. The bones are unremarkable. IMPRESSION: 1. Right IJ CVC with tip in the mid SVC. Enteric tube with tip below the diaphragm. 2. Stable extensive bilateral pulmonary infiltrates. Dictated by Concetta Edwards MD @ 04/02/2021 1:50:58 PM (Electronically Signed)
[2021-04-02] MEDS ORDERED: Propofol 200 MG/20 ML SDV ONE (13:57)
[2021-04-02] MEDS ORDERED: Rocuronium Bromide 50 MG/5 ML Syringe ONE ×4 (13:57)
[2021-04-02] MEDS ORDERED: propofoL 200 ML IV ONE (15:15)
[2021-04-02] MEDS: Pantoprazole 40 MG in Sodium Chloride 0.9% 10 ML IV SCH (17:46)
[2021-04-02] MEDS ORDERED: propofoL 100 ML IV ONE (18:00)
[2021-04-02] MEDS: propofoL 100 ML IV SCH (21:47)
[2021-04-02] MEDS ORDERED: Piperacillin/Tazobactam 4.5 GM in Sodium Chloride 0.9% 100 ML IV SCH (23:00)
[2021-04-02] MEDS ORDERED: VANCOMYCIN 2 GM/400 ML IV ONE (23:15)
[2021-04-03] MEDS ORDERED: VANCOmycin 2 GM/400 ML 400 ML IV ONE (00:37)
[2021-04-03] MEDS: propofoL 100 ML IV SCH ×2 (01:43→04:54)
[2021-04-03] MEDS: Albuterol/Ipratropium 3.0-0.5 MG/3 ML Neb Soln NEB SCH (02:28)
--- NOTE | 2021-04-03 02:44 | PCM.DCSUM1 ---
Discharge Summary - Discharge Data Discharge Date: 04/03/21 Discharge Disposition: DC/Tfer to Acute Hospital 02 Condition: Stable - Referral to Home Health Primary Care Physician: PCP None - Discharge Diagnosis/Problem(s) (1) Hypoxia SNOMED Code(s): 245633516 ICD Code: R09.02 - HYPOXEMIA Status: Acute Current Visit: Yes (2) Obesity SNOMED Code(s): 557610625, 350135451 ICD Code: E66.9 - OBESITY, UNSPECIFIED Status: Acute Current Visit: Yes (3) COVID-19 SNOMED Code(s): 164379436 ICD Code: U07.1 - COVID-19 Status: Acute Current Visit: Yes - Discharge Plan Home Medications: Home Meds . [No Known Home Meds] 03/25/21 [History] Forms: ED Department Discharge Referrals: PCP,None [Primary Care Provider] - - Patient Data Vitals - Most Recent: Last Vital Signs Temp 36.1 C 04/03/21 00:00 Pulse 79 03/25/21 19:12 Resp 30 H 04/03/21 00:00 BP 99/68 04/03/21 00:00 Pulse Ox 93 L 04/03/21 00:00 Weight - Most Recent: 142.365 kg I&O - Last 24 hours: Intake & Output 04/02/21 04/02/21 04/03/21 14:59 22:59 06:59 Intake Total 450 Output Total 965 Balance -515 Lab Results - Last 24 hrs: Laboratory Results - last 24 hr 04/02/21 04/02/21 04/02/21 Range/Units 03:50 05:48 05:48 WBC 17.06 H (4.0-11.0) K/uL RBC 4.62 (4.50-5.90) M/uL Hgb 14.7 (13.0-17.0) g/dL Hct 45.0 (38.0-50.0) % MCV 97.4 (80.0-98.0) fL MCH 31.8 (27.0-32.0) pg MCHC 32.7 (31.0-37.0) g/dL RDW Std Deviation 48.2 (28.0-62.0) fl RDW Coeff of Kavon 14 (11.0-15.0) % Plt Count 158 (150-400) K/uL MPV 11.40 (7.40-12.00) fL Add Manual Diff YES Neutrophils % (Manual) 95 H (48.0-80.0) % Lymphocytes % (Manual) 1 L (16.0-40.0) % Monocytes % (Manual) 3 (0.0-15.0) % Metamyelocytes % 1 % Nucleated RBC % 0.0 /100WBC Absolute Seg Neuts 16.2 H (1.4-5.7) Lymphocytes # (Manual) 0.2 L (0.6-2.4) Monocytes # (Manual) 0.5 (0.0-0.8) Absolute Metamyelocyte 0.2 Nucleated RBCs # 0 K/uL ABG pH 7.48 H (7.35-7.45) ABG pCO2 46 H (35-45) mmHG ABG pO2 46 L (80-105) mmHG ABG HCO3 34 H (22-26) mEq/L ABG Total CO2 30.0 H (23-27) mmol/L ABG Base Excess 9.4 H (-2.0-3.0) Sodium 138 (136-148) mmol/L Potassium 5.0 (3.5-5.1) mmol/L Chloride 99 (98-107) mmol/L Carbon Dioxide 30.6 (21.0-32.0) mmol/L BUN 18 (7.0-18.0) mg/dL Creatinine 0.7 L (0.8-1.3) mg/dL Est Cr Clr Drug Dosing 137.45 mL/min Estimated GFR (MDRD) > 60.0 ml/min Glucose 112 H (74-106) mg/dL Calcium 7.5 L (8.5-10.1) mg/dL Magnesium (1.8-2.4) mg/dL Total Bilirubin 1.7 H (0.2-1.0) mg/dL AST 61 H (15-37) IU/L ALT 56 (14-63) IU/L Alkaline Phosphatase 89 (46-116) U/L Total Protein 6.7 (6.4-8.2) g/dL Albumin 2.1 L (3.4-5.0) g/dL Globulin 4.6 H (2.6-4.0) g/dL Albumin/Globulin Ratio 0.5 L (0.9-1.6) 04/02/21 04/02/21 04/02/21 Range/Units 05:48 06:00 12:20 WBC (4.0-11.0) K/uL RBC (4.50-5.90) M/uL Hgb (13.0-17.0) g/dL Hct (38.0-50.0) % MCV (80.0-98.0) fL MCH (27.0-32.0) pg MCHC (31.0-37.0) g/dL RDW Std Deviation (28.0-62.0) fl RDW Coeff of Kavon (11.0-15.0) % Plt Count (150-400) K/uL MPV (7.40-12.00) fL Add Manual Diff Neutrophils % (Manual) (48.0-80.0) % Lymphocytes % (Manual) (16.0-40.0) % Monocytes % (Manual) (0.0-15.0) % Metamyelocytes % % Nucleated RBC % /100WBC Absolute Seg Neuts (1.4-5.7) Lymphocytes # (Manual) (0.6-2.4) Monocytes # (Manual) (0.0-0.8) Absolute Metamyelocyte Nucleated RBCs # K/uL ABG pH 7.47 H 7.29 L (7.35-7.45) ABG pCO2 47 H 71 H (35-45) mmHG ABG pO2 43 L 68 L (80-105) mmHG ABG HCO3 35 H 34 H (22-26) mEq/L ABG Total CO2 29.9 H 30.7 H (23-27) mmol/L ABG Base Excess 9.2 H 4.7 H (-2.0-3.0) Sodium (136-148) mmol/L Potassium (3.5-5.1) mmol/L Chloride (98-107) mmol/L Carbon Dioxide (21.0-32.0) mmol/L BUN (7.0-18.0) mg/dL Creatinine (0.8-1.3) mg/dL Est Cr Clr Drug Dosing mL/min Estimated GFR (MDRD) ml/min Glucose (74-106) mg/dL Calcium (8.5-10.1) mg/dL Magnesium 2.6 H (1.8-2.4) mg/dL Total Bilirubin (0.2-1.0) mg/dL AST (15-37) IU/L ALT (14-63) IU/L Alkaline Phosphatase (46-116) U/L Total Protein (6.4-8.2) g/dL Albumin (3.4-5.0) g/dL Globulin (2.6-4.0) g/dL Albumin/Globulin Ratio (0.9-1.6) 04/02/21 04/02/21 Range/Units 15:15 22:20 WBC (4.0-11.0) K/uL RBC (4.50-5.90) M/uL Hgb (13.0-17.0) g/dL Hct (38.0-50.0) % MCV (80.0-98.0) fL MCH (27.0-32.0) pg MCHC (31.0-37.0) g/dL RDW Std Deviation (28.0-62.0) fl RDW Coeff of Kavon (11.0-15.0) % Plt Count (150-400) K/uL MPV (7.40-12.00) fL Add Manual Diff Neutrophils % (Manual) (48.0-80.0) % Lymphocytes % (Manual) (16.0-40.0) % Monocytes % (Manual) (0.0-15.0) % Metamyelocytes % % Nucleated RBC % /100WBC Absolute Seg Neuts (1.4-5.7) Lymphocytes # (Manual) (0.6-2.4) Monocytes # (Manual) (0.0-0.8) Absolute Metamyelocyte Nucleated RBCs # K/uL ABG pH 7.32 L 7.40 (7.35-7.45) ABG pCO2 66 H 54 H (35-45) mmHG ABG pO2 92 97 (80-105) mmHG ABG HCO3 34 H 33 H (22-26) mEq/L ABG Total CO2 36 H 29.6 H (23-27) mmol/L ABG Base Excess 6.0 H 6.7 H (-2.0-3.0) Sodium (136-148) mmol/L Potassium (3.5-5.1) mmol/L Chloride (98-107) mmol/L Carbon Dioxide (21.0-32.0) mmol/L BUN (7.0-18.0) mg/dL Creatinine (0.8-1.3) mg/dL Est Cr Clr Drug Dosing mL/min Estimated GFR (MDRD) ml/min Glucose (74-106) mg/dL Calcium (8.5-10.1) mg/dL Magnesium (1.8-2.4) mg/dL Total Bilirubin (0.2-1.0) mg/dL AST (15-37) IU/L ALT (14-63) IU/L Alkaline Phosphatase (46-116) U/L Total Protein (6.4-8.2) g/dL Albumin (3.4-5.0) g/dL Globulin (2.6-4.0) g/dL Albumin/Globulin Ratio (0.9-1.6) Med Orders - Current: Current Medications Albuterol/Ipratropium (Albuterol/Ipratropium 3.0-0.5 Mg/3 Ml Neb Soln) 3 ml NEB Q4HRRT [facility] Last Admin: 04/03/21 02:28 Dose: 3 ml Documented by: Benzonatate (Benzonatate 100 Mg Cap) 100 mg PO Q6H PRN PRN Reason: Cough Last Admin: 04/01/21 23:04 Dose: 100 mg Documented by: Dexamethasone (Dexamethasone 4 Mg/Ml Sdv) 6 mg IVPUSH DAILY [facility] Last Admin: 04/02/21 08:06 Dose: 6 mg Documented by: Enoxaparin Sodium (Enoxaparin 40 Mg/0.4 Ml Syringe) 40 mg SUBCUT Q12HR [facility] Last Admin: 04/02/21 21:15 Dose: 40 mg Documented by: Fentanyl (Fentanyl 100 Mcg/2 Ml Sdv) 50 mcg IVPUSH Q5M PRN PRN Reason: Pain Last Admin: 04/02/21 11:55 Dose: 50 mcg Documented by: Guaifenesin/Codeine Phosphate (Codeine/Guaifenesin 10-100 Mg/5 Ml Syrup 5 Ml Cup) 5 ml PO Q4H PRN PRN Reason: Cough Last Admin: 04/01/21 21:16 Dose: 5 ml Documented by: Fentanyl Citrate 2,500 mcg/ (Premix) 250 mls @ 20 mls/hr IV TITRATE [facility]; Protocol Last Admin: 04/02/21 23:50 Dose: 200 mcg/hr, 20 mls/hr Documented by: Midazolam HCl 50 mg/ Sodium (Chloride) 50 mls @ 5 mls/hr IV TITRATE [facility]; Protocol Vecuronium [place] 100 mg/ (Sodium Chloride) 100 mls @ 4.527 mls/hr IV TITRATE PRN PRN Reason: PARALYSIS Pantoprazole Sodium 40 mg/ (Sodium Chloride) 10 mls @ 300 mls/hr IV Q12H [facility] Propofol (Diprivan 100 Ml) 100 mls @ 25.626 mls/hr IV TITRATE [facility]; Protocol Last Admin: 04/03/21 01:43 Dose: 30 mcg/kg/min, 25.626 mls/hr Documented by: Piperacillin Sod/Tazobactam (Sod 4.5 gm/ Sodium Chloride) 100 mls @ 100 mls/hr IV Q8H [facility] Last Admin: 04/02/21 23:35 Dose: 100 mls/hr Documented by: Norepinephrine Bitartrate (Norepinephr-0.9% Nacl 4 Mg/250) 4 mg in 250 mls @ 7.5 mls/hr IV TITRATE [facility]; Protocol Last Admin: 04/02/21 22:37 Dose: 2 mcg/min, 7.5 mls/hr Documented by: Vancomycin HCl (Vancomycin 2 Gm/400 Ml) 400 mls @ 200 mls/hr IV Q12H [facility] Midazolam HCl (Midazolam 1 Mg/Ml 2 Ml Sdv) 2 mg IVPUSH Q1H PRN PRN Reason: VENT MAINTENANCE Sodium Chloride (Sodium Chloride 0.65% Nasal [place] 45 Ml Bottle) 0 ml KANDIS Q4H PRN PRN Reason: nasal congestion Last Admin: 03/28/21 01:10 Dose: 1 spray Documented by: Vancomycin HCl (Pharmacy To Dose - Vancomycin) 1 dose .XX ASDIRECTED [facility] Discontinued Medications Albuterol/Ipratropium (Albuterol/Ipratropium 4 Gm Inhalation [place]) 1 gm INH Q4HRRT PRN PRN Reason: Dyspnea Dexamethasone (Dexamethasone 10 Mg/Ml Sdv) 6 mg IVPUSH ONETIME ONE Stop: 03/25/21 12:44 Last Admin: 03/25/21 13:06 Dose: 6 mg Documented by: Dexamethasone (Dexamethasone 4 Mg Tab) 6 mg PO DAILY [facility] Last Admin: 03/26/21 12:42 Dose: 6 mg Documented by: Fentanyl (Fentanyl 100 Mcg/2 Ml Sdv) Confirm Administered Dose 100 mcg .ROUTE .STK-MED ONE Stop: 04/02/21 11:42 Last Admin: 04/02/21 13:34 Dose: Not Given Documented by: Fentanyl (Fentanyl 100 Mcg/2 Ml Sdv) Confirm Administered Dose 100 mcg .ROUTE .STK-MED ONE Stop: 04/02/21 13:07 Last Admin: 04/02/21 13:10 Dose: 100 mcg Documented by: Furosemide (Furosemide 40 Mg/4 Ml Vial) 40 mg IVPUSH NOW ONE Stop: 03/28/21 23:30 Last Admin: 03/28/21 23:46 Dose: 40 mg Documented by: Guaifenesin/Dextromethorphan (Guaifenesin/Dextromethorphan 100-10 Mg/5 Ml Soln 10 Ml Cup) 10 ml PO Q4H PRN PRN Reason: Cough Last Admin: 03/27/21 10:26 Dose: 10 ml Documented by: Guaifenesin/Dextromethorphan (Guaifenesin/Dextromethorphan 100-10 Mg/5 Ml Soln 10 Ml Cup) 10 ml PO Q4H [facility] Guaifenesin/Dextromethorphan (Guaifenesin/Dextromethorphan 100-10 Mg/5 Ml Soln 10 Ml Cup) 10 ml PO Q4H [facility] Last Admin: 03/28/21 05:56 Dose: 10 ml Documented by: Remdesivir 200 mg/ Sodium (Chloride) 250 mls @ 250 mls/hr IV ONETIME ONE Stop: 03/25/21 17:29 Last Admin: 03/25/21 17:19 Dose: 250 mls/hr Documented by: Pantoprazole Sodium 40 mg/ (Sodium Chloride) 10 mls @ 300 mls/hr IV Q24H [facility] Last Admin: 04/02/21 17:46 Dose: 300 mls/hr Documented by: Remdesivir 100 mg/ Sodium (Chloride) 100 mls @ 100 mls/hr IV Q24H [facility] Stop: 03/29/21 18:29 Last Admin: 03/29/21 17:18 Dose: 100 mls/hr Documented by: Dexmedetomidine/Sodium (Chloride 400 mcg/ Premix) 100 mls @ 7.118 mls/hr IV .Q14H3M [facility]; Protocol Last Titration: 04/02/21 14:30 Dose: 0 mcg/kg/hr, 0 mls/hr Documented by: Propofol (Diprivan 100 Ml) Confirm Administered Dose 100 mls @ as directed .ROUTE .STK-MED ONE Stop: 04/02/21 09:08 Last Admin: 04/02/21 17:42 Dose: Not Given Documented by: Norepinephrine Bitartrate (Norepinephr-0.9% Nacl 4 Mg/250) Confirm Administered Dose 4 mg in 250 mls @ as directed IV .STK-MED ONE Stop: 04/02/21 09:09 Last Admin: 04/02/21 23:01 Dose: Not Given Documented by: Vecuronium [place] 100 mg/ (Sodium Chloride) 100 mls @ 4.5 mls/hr IV ONETIME ONE Stop: 04/03/21 12:13 Last Admin: 04/02/21 15:59 Dose: Not Given Documented by: Propofol (Diprivan 100 Ml) Confirm Administered Dose 100 mls @ as directed .ROUTE .STK-MED ONE Stop: 04/02/21 14:50 Last Admin: 04/02/21 16:06 Dose: Not Given Documented by: Propofol (Diprivan 100 Ml) 200 mls @ 17.084 mls/hr IV ONETIME ONE; Protocol Stop: 04/03/21 02:57 Last Infusion: 04/02/21 17:40 Dose: Infused Documented by: Propofol (Diprivan 100 Ml) 100 mls @ 25.626 mls/hr IV ONETIME ONE; Protocol Stop: 04/02/21 21:54 Last Admin: 04/02/21 17:52 Dose: 30 mcg/kg/min, 25.626 mls/hr Documented by: Vancomycin HCl (Vancomycin 2 Gm/400 Ml) 500 mls @ 250 mls/hr IV ONETIME ONE Stop: 04/03/21 01:14 Last Admin: 04/03/21 02:05 Dose: Not Given Documented by: Vancomycin HCl (Vancomycin 2 Gm/400 Ml) 400 mls @ 200 mls/hr IV ONETIME ONE Stop: 04/03/21 01:14 Last Admin: 04/03/21 01:44 Dose: 200 mls/hr Documented by: Iopamidol (Iopamidol 755 Mg/Ml 500 Ml Multipack Bottle) 100 ml IVPUSH ONETIME STA Stop: 03/26/21 01:46 Last Admin: 03/26/21 01:46 Dose: 100 ml Documented by: Ketorolac Tromethamine (Ketorolac 15 Mg/Ml Sdv) 15 mg IVPUSH ONETIME ONE Stop: 03/25/21 12:44 Last Admin: 03/25/21 13:06 Dose: 15 mg Documented by: Midazolam HCl (Midazolam 1 Mg/Ml 2 Ml Sdv) 5 mg IVPUSH ONETIME ONE Stop: 04/02/21 13:18 Last Admin: 04/02/21 13:35 Dose: 5 mg Documented by: Midazolam HCl (Midazolam 1 Mg/Ml 2 Ml Sdv) Confirm Administered Dose 2 mg .ROUTE .STK-MED ONE Stop: 04/02/21 13:20 Last Admin: 04/02/21 13:38 Dose: Not Given Documented by: Midazolam HCl (Midazolam 1 Mg/Ml 2 Ml Sdv) Confirm Administered Dose 4 mg .ROUTE .STK-MED ONE Stop: 04/02/21 13:24 Last Admin: 04/02/21 13:39 Dose: Not Given Documented by: Morphine Sulfate (Morphine 2 Mg/Ml Syringe) 2 mg IVPUSH ONETIME ONE Stop: 03/28/21 23:25 Last Admin: 03/28/21 23:45 Dose: 2 mg Documented by: Propofol (Propofol 200 Mg/20 Ml Sdv) Confirm Administered Dose 200 mg .ROUTE .STK-MED ONE Stop: 04/02/21 13:58 Rocuronium [place] (Rocuronium [place] 50 Mg/5 Ml Syringe) Confirm Administered Dose 50 mg .ROUTE .STK-MED ONE Stop: 04/02/21 13:58 Rocuronium [place] (Rocuronium [place] 50 Mg/5 Ml Syringe) Confirm Administered Dose 50 mg .ROUTE .STK-MED ONE Stop: 04/02/21 13:58 Rocuronium [place] (Rocuronium [place] 50 Mg/5 Ml Syringe) Confirm Administered Dose 50 mg .ROUTE .STK-MED ONE Stop: 04/02/21 13:58 Rocuronium [place] (Rocuronium [place] 50 Mg/5 Ml Syringe) Confirm Administered Dose 50 mg .ROUTE .STK-MED ONE Stop: 04/02/21 13:58 Rocuronium [place] (Rocuronium [place] 50 Mg/5 Ml Syringe) 100 mg IVPUSH ONETIME ONE Stop: 04/02/21 13:16 Last Admin: 04/02/21 13:17 Dose: 100 mg Documented by: Wound Care/Dressing Products (Hydrocolloid Dressing 4x4 Bandage) Confirm Administered Dose 1 each .ROUTE .STK-MED ONE Stop: 04/01/21 23:12 Last Admin: 04/01/21 23:49 Dose: 1 each Documented by: Discharge Operative/Procedures - Procedures Performed Intubation Indication: Respiratory Failure Arterial Line Indication: hemodynamic monitoring
[2021-04-03] MEDS ORDERED: propofoL 100 ML ONE (03:29)
[2021-04-03] MEDS ORDERED: Midazolam 5 MG/ML SDV IVPUSH ONE (03:35)
[2021-04-03] MEDS ORDERED: Midazolam 1 MG/ML 2 ML SDV ONE (03:38)
[2021-04-03] MEDS ORDERED: Rocuronium Bromide 50 MG/5 ML Syringe ONE (04:08)
--- NOTE | 2021-04-03 04:14 | PCM.PRNOTE ---
- Free Text/Narrative Note: Anes Note I was called to evaluate this patient. O2 sats are low 70S. BBS checked and equal, however coarse and distant. There is air leaking around ET tube cuff, despite being well inflated. A new 8.0 ET tube was placed with ease using video laryngoscope. Tube secures at 24 cm at teeth. BBS confirmed and equal again, but remain very coarse. Sats remain in the 70s. 100 mg anectine given at 0350 for intubation. After tube placement was confirmed, 50 mg rocuronium was given to facilitate ventilation. Time with patient [id number]. Evgeny Gomez CRNA
--- NOTE | 2021-04-03 04:35 | CR ---
Indication: Respiratory failure Technique: Chest 1 view Comparison: April 02, 2021 Findings/Impression: Endotracheal tube tip terminates 9.1 cm above the level of the danni. A gastric drainage tube tip courses below the level of the left hemidiaphragm. Right internal jugular central venous catheter tip terminates at the level of the distal superior vena cava. The cardiac silhouette is obscured by diffuse pulmonary infiltrates which are significantly increased compared to the prior exam. No pneumothorax. Dictated by Meena Lomax MD @ 04/03/2021 4:35:08 AM (Electronically Signed)
--- NOTE | 2021-04-03 04:55 | PN ---
THC Physician - Brief Progress [id number]/08/2021 04:49[facility] [place] - JESSICA (UMAIR) - JESSICA ICUNAOMIE MADSEN COVID+Date of Service 04/03/2021 04:49HPI/ Events of Note bedside noted oxygen desaturation to 80-92% on PEEP 18/100%On camera patient intubate d and sedated but tachypnic RR45/minon fentanyl 200mcg/hour,propofol 50 mcg/kg/minPeak airway pressur e 38 cuff airleak not notedET at 25 cm at lipplan:advised midazolam 5 mg IVP chest xray stat to r/o p neumothoraxCRNA at bedside deflated the cuff and pushed ET tube to 26 at lip and further desaturation noted and so patient was subsequently reintubated by him and when paced on vent spo2 88% reachedInte rventions Major-Respiratory failure - evaluation and management
[2021-04-03] MEDS ORDERED: Pantoprazole 40 MG in Sodium Chloride 0.9% 10 ML IV SCH (06:00)
--- NOTE | 2021-04-03 10:37 | PN ---
THC Physician - Brief Progress [id number]/07/2021 16:00[facility] [place], [place] - JESSICA (UMAIR) - NAOMIE ALBARRAN COVID+Date of Service 04/02/2021 16:00HPI/ Events of Note EICU follow upPatient is sedated with propofol 50 mcg/kg/min, fentanyl 200 mcg/h, Vers ed drip at 5 mg/h. The patient was also started on neuromuscular abhilash currently on vecuronium dri p. Vent settings are VC rate 30, tidal volume 500, PEEP 18, 100% FiO2. Peak pressure 42. SPO2 rang ing 94%. ABG done at 3:30 PM showed pH 7.32, PCO2 66, PO2 92, bicarb 34.Plan:-Currently (P/F ratio) 92 with ideally require ~placed the patient in prone positioning when there are multiple factors incl uding patient's weight and risk for tube dislodgment with weight for the next ABG to decide on prone ventilation.-Continue current vent settings, sedation, neuromuscular blockers-Check plateau pressure. Due to the patient's body habitus, morbid obesity large abdomen the current readings of airway pres sure may not correlate with the real-time transpulmonary pressure, will monitor for any changes in ai rway pressures and chest x-ray.-Case discussed with RT, RNInterventions Major-Respiratory failure - e valuation and management
[2021-04-03] MEDS ORDERED: VANCOmycin 2 GM/400 ML 400 ML IV SCH (14:00)
== END 2021-04-03 04:33 | DRG 208 ==
LOC: MW.ED 12:34 → MW.ICU 15:54
PROVIDERS: ADMIT Internal Medicine; ATTEND Internal Medicine
PROC: XW033E5 Introduction of Remdesivir Anti-infective into Peripheral Vein, Percutaneous Approach, New Technology Group 5 (ICD-10-PCS; principal; 2021-03-25)
PROC: 3E0333Z Introduction of Anti-inflammatory into Peripheral Vein, Percutaneous Approach (ICD-10-PCS; 2021-03-25)
PROC: 5A09457 Assistance with Respiratory Ventilation, 24-96 Consecutive Hours, Continuous Positive Airway Pressure (ICD-10-PCS; 2021-03-25)
PROC: XW0DXM6 Introduction of Baricitinib into Mouth and Pharynx, External Approach, New Technology Group 6 (ICD-10-PCS; 2021-03-25)
PROC: 5A1935Z Respiratory Ventilation, Less than 24 Consecutive Hours (ICD-10-PCS; 2021-04-02)
PROC: 03HY32Z Insertion of Monitoring Device into Upper Artery, Percutaneous Approach (ICD-10-PCS; 2021-04-02)
PROC: 4A133B1 Monitoring of Arterial Pressure, Peripheral, Percutaneous Approach (ICD-10-PCS; 2021-04-02)
PROC: 4A133J1 Monitoring of Arterial Pulse, Peripheral, Percutaneous Approach (ICD-10-PCS; 2021-04-02)
PROC: 02HV33Z Insertion of Infusion Device into Superior Vena Cava, Percutaneous Approach (ICD-10-PCS; 2021-04-02)
PROC: 0BH17EZ Insertion of Endotracheal Airway into Trachea, Via Natural or Artificial Opening (ICD-10-PCS; 2021-04-02)
DX: U07.1 COVID-19 (principal); J12.82 Pneumonia due to coronavirus disease 2019; J80 Acute respiratory distress syndrome; Z68.41 Body mass index [BMI] 40.0-44.9, adult; E66.01 Morbid (severe) obesity due to excess calories; F41.8 Other specified anxiety disorders
CPT/HCPCS: 36415; 36600; 51702; 71045; 71045-26; 71275; 71275-26; 80053; 82803; 83036; 83735; 84100; 84145; 84484; 85025; 85379; 85610; 86140; 87040; 93005; 94002; 94640; 94660; 96374; 96375; 99285-25; 99291; A9270-GY; C9113; J0330; J1100; J1650; J1885; J1940; J2250; J2270; J2543; J2704; J3010; J3370; J7050; J7620-GY; J8540; Q9967; U0002